=== PATIENT | female | born 1945 | race Caucasian/White ===

== ENCOUNTER 2019-10-22 04:02 | Inpatient (IN) | payer OTHER, SELFPAY ==
[2019-10-22] VITALS (32 sets, daily range): BP systolic 91–147; BP diastolic 48–107; PULSE 85–133; RESP 12–41; TEMP 36.2–37.1; O2SAT 92–100; BMI 30.6; BMI 32.0
--- NOTE | 2019-10-22 04:13 | EKG12_ITS ---
Test Reason : SOB Blood Pressure : / mmHG Vent. Rate : 129 BPM Atrial Rate : 129 BPM P-R Int : 136 ms QRS Dur : 124 ms QT Int : 318 ms P-R-T Axes : -09 -30 106 degrees QTc Int : 465 ms Sinus tachycardia Left axis deviation Left bundle branch block Abnormal ECG Confirmed by MARTIN BAÑUELOS, ELIS ([id number]), index editor MAGGIE HYATT ([id number]) on 10/24/2019 9:01:25 AM Referred By: VISHAL Confirmed By:ELIS SALAZAR MD
--- NOTE | 2019-10-22 04:17 | ED.VISSUMM ---
- ER Visit Summary Date of Service: 10/22/19 Chief Complaint: Shortness of breath History of Present Illness: The patient is a 74 F who presents with shortness of breath that has been getting worse since last night. Patient states her breathing became worse when she laid flat and try to sleep last night. Patient denies any cough. Patient denies any rhinorrhea or sore throat. Patient denies any fevers or chills. Patient denies any chest pain. Patient admits to some mild edema of her lower legs. Patient does admit to some pain radiating into her back. Patient denies any headaches or weakness. Physical Examination: Vital signs are stable except for tachycardia of 130 and a tachypnea of 40. Patient has a pulse ox of 97% on BiPAP. Patient is afebrile. Oral mucosa is pink and moist. Neck is supple. Trachea is midline. Heart was regular and tachycardic. Lung sounds were diminished bilaterally. There is adequate respiratory effort. Abdomen is soft. Bowel sounds are normal. There is no tenderness. Cranial nerves II through XII are intact. There are no focal motor or sensory deficits noted. Extremities are intact. There is 1+ edema of the lower extremities bilaterally. Test Results: EKG showed a sinus tachycardia with a rate of 129. There are no acute ST or T wave changes. There is a left bundle branch block pattern. There are no prior EKGs available for comparison. Chest x-ray shows evidence of congestive heart failure. This was interpreted by the radiologist and myself. CBC and metabolic profile were obtained and were essentially within normal limits. Lactate was slightly elevated 2.2. Emergency Department Course and Treatment: Patient was given a dose of Lasix here. Case was discussed with the hospitalist. She will be in to evaluate the patient. She will admit the patient to her service. Patient understands and is agreeable with the plan. All questions were answered. Disposition: Admit to hospital Impression: Acute exacerbation congestive heart failure This note was generated with PLAST[employer] dictation software. It may contain incorrect words, spelling, and punctuation that were not noted in review of the chart prior to signing ED Disposition - Plan for ED Patient: Disposition: Acute Care Hospital [facility] Diagnosis: Acute exacerbation of CHF (congestive heart failure)
[2019-10-22] MEDS: Furosemide 20 MG/2 ML VIAL IV (04:20)
--- NOTE | 2019-10-22 04:20 | RAD_ITS ---
STUDY: X-RAY CHEST REASON FOR EXAM: Female, 74 years old. DYSPNEA TECHNIQUE: Single AP portable view of the chest. COMPARISON: None. FINDINGS: Ill-defined groundglass opacities are seen in the perihilar regions and lung bases suggesting pulmonary edema. There is no demonstrated pleural abnormality. Normal size heart. Normal mediastinum and nu. There is prominence of the pulmonary hilar arteries and peripheral pulmonary arteries, consistent with congestive heart failure (CHF). Normal visualized aortic arch and descending thoracic aorta. Normal visualized thoracic spine. Normal visualized ribs, clavicles, and shoulders. There is no demonstrated abnormality of the visualized soft tissue structures of the upper abdomen. RAD/Chest 1 View (Portable) IMPRESSION: Congestive heart failure. Electronically Signed: Sal Jama, at 5:11 EST Tel , Service support ,
[2019-10-22 04:21] LABS: Absolute Lymphocyte Count 2.59 X10^3/uL (0.83-4.51); Absolute Neutrophil Count 7.4 X10^3/uL (2.0-7.7); Basophil# 0.06 X10^3/uL; Basophil% 0.6 % (0-1); Eosinophil# 0.18 X10^3/uL; Eosinophils% 1.7 % (0-5); Hematocrit 39.5 % (37-47); Hemoglobin 12.5 g/dL (12.0-15.0); Lymphocyte # 2.59 X10^3/ul (4.0); Lymphocyte % 23.8 % (19-41); Mean Corp Hgb Conc 31.6 g/dL (32-36); Mean Corpuscular Hgb 30.3 pg (27.0-32.0); Mean Corpuscular Volume 95.6 fL (81-99); Mean Platelet Vol. 9.5 fl (6.2-12.0); Monocyte# 0.61 X10^3/uL; Monocyte% 5.6 % (0-10); NRBC Flagged by Analyzer 0 % (0-5); Neutrophil % 67.8 % (47-70); Platelet Count 414 K/mm3 (150-450); RBC Distribution Width CV 13.4 % (11.6-14.6); RBC Distribution Width SD 47.1 fl (35.1-43.9); Red Blood Count 4.13 M/mm3 (4.2-5.4); White Blood Count 10.9 K/mm3 (4.4-11.0)
--- NOTE | 2019-10-22 04:34 | HP.PCM_ITS ---
Problem List (1) Acute respiratory failure with hypoxia Status: Acute (2) Acute exacerbation of CHF (congestive heart failure) Status: Acute Qualifiers: Heart failure type: unspecified Qualified Code(s): I50.9 - Heart failure, unspecified (3) HTN (hypertension) Status: Chronic Qualifiers: Hypertension type: essential hypertension Qualified Code(s): I10 - Essential (primary) hypertension History of Present Illness Date of Admission: 10/22/19 Chief Complaint: Dyspnea, orthopnea The patient is a 74 y/o Gnosticism F w/ PMHx: CHF Unclear type, HTN who presents to the [facility] ED on 10/22/19 with history of 48 hours of progressively worsening dyspnea, worse with exertion in addition to orthopnea as well as a 3 pound weight gain, suddenly worsening prior to ED arrival requiring initiation of BiPAP. In the ED following BiPAP administration patient improving with less d yspnea, declined intubation with a DNR CCA, no intubation status. Patient states she was previously following with a physician in the region for heart failure but [place] therefore she was planning on switching to Dr. Guzman and has upcoming appointment on 12/06/2019. She notes her most recent echocardiogram was approximately 1 year prior. Work-up in the ED included T 97.2, heart rate initially 133, BP initially 145/94, respiratory rate initially 41, 98% on BiPAP, CBC with WBC 10.9, hemoglobin 12.5, platelet 414 with no shift, pending ABG evaluation of patient, BMP with chloride 108, BUN 33, creatinine 0.91, glucose 176, troponin less than 0.015, EKG with sinus tachycardia with left bundle branch block with no comparison with no acute evidence of ischemia, chest x-ray with significant congestion, pulmonary edema. In the ED patient maintained on BiPAP with as noted subjective improvement with ministration of Lasix 20 mg IV x1 as well as Nitro-Bid 1 inch. Past Medical History Past Medical History (Chronic Problems): Chronic Problems HTN (hypertension) (Chronic) Allergies No Known Allergies Allergy (Verified 10/22/19 04:03) Home Medications: Ambulatory Orders Medication Instructions Recorded Ibuprofen 400 mg PO 4X/DAY PRN PRN 10/22/19 Labetalol [Trandate] 200 mg PO BID 10/22/19 Triamterene 37.5MG/Hctz 25MG 1 tab PO DAILY 10/22/19 [Maxzide 37.5 mg-25 mg Tablet] Surgical History: - - Cholecystectomy, appendectomy. 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 Paternal History Items: - - Patient notes a paternal family history of heart disease. Review of Systems Constitutional: Reports: Malaise, Weakness, Fatigue. Denies: Anorexia, Chills, Fever, Weight Change HEENT: Denies: Head Aches, Sinus Congestion, Sinus Drainage Cardiovascular: Reports: Edema, Orthopnea. Denies: Chest Pain, Heaviness, Light Headedness, Palpitations Respiratory: Reports: Shortness of Breath, Shortness of breath at rest, Shortness of breath upon exertion. Denies: Cough, Sputum production, Wheezing Gastrointestinal: Denies: Abdominal Pain, Nausea, Vomiting Genitourinary: Denies: Dysuria Musculoskeletal: Reports: Back Pain, Joint Pain. Denies: Joint Tenderness Skin: Denies: Rash, Wounds Neurological: Denies: Numbness, Tingling, Focal weakness Psychiatric: Denies: Anxiety, Depression, Homicidal Ideations, Suicidal Ideations Hematologic/ Lymphatic: Denies: Easy Bruising, Easy Bleeding VTE Information - Inpt Only VTE Present on Admission: No VTE Mechan Device Prophylaxis: SCD's VTE Pharm Prophylaxis ordered?: Yes Patient Problems: Active and Suspected Problems Acute respiratory failure with hypoxia (Acute) Acute exacerbation of CHF (congestive heart failure) (Acute) Subjective: Seated upright in ED bed, BiPAP in place, notes some improvement since initial ED presentation, still increased respiratory rate and some accessory muscle usage but lessening. Objective: Physical Examination: General: awake, alert, oriented x 3 and cooperative, seated upright in the ED bed, BiPAP in place, improving since initial ED presentation but still increased respiratory rate and some accessory muscle usage. Skin: normal color, turgor, no icterus, cyanosis. HEENT: AT/NC, EOMI, PERRLA, mildly dry MM, no carotid bruits, difficulty discerning JVD secondary to thickened neck, BiPAP in place. Lungs: Diffusely diminished breath sounds, greater bases, Rales bilateral bases, no obvious rhonchi or wheezing, BiPAP in place, improved since initial ED presentation but still increased respiratory rate and accessory muscle usage. Heart: Tachycardic with regular rhythm; no gallop, rub audible. Abdomen: soft, obese, NTTP, ND, normal BS, no HSM. Extremities: no cyanosis, clubbing, bilateral ankle edema but not pitting. Neurological: patient awake, alert, oriented x 3; cognitive function intact; pupils equally reactive to light and accomodation; cranial nerves II-XII grossly normal, moving all 4 extremities, no focal deficits, strength severely globally Emma secondary to acute presentation. Psychiatric: affect appears fatigued, mild distress although improved since initial ED presentation, no acute evidence of depressive or anxiety feelings. - Physical Exam Vitals/I&O's: Vital Signs Temp Pulse Resp BP Pulse Ox 97.2 F L 130 H 40 H 145/94 H 97 10/22/19 04:04 10/22/19 04:05 10/22/19 04:05 10/22/19 04:04 10/22/19 04:05 Oxygen Delivery Method Bi-pap Weight: 189 lb 13.088 oz Body Mass Index (BMI) 30.6 Laboratory Results 10/22/19 04:10: WBC 10.9, RBC 4.13 L, Hgb 12.5, Hct 39.5, MCV 95.6, MCH 30.3, MCHC 31.6 L, RDW Std Deviation 47.1 H, RDW Coeff of Tanya 13.4, Plt Count 414, MPV 9.5, Immature Gran % (Auto) 0.500, Neut % (Auto) 67.8, Lymph % (Auto) 23.8, [place] % (Auto) 5.6, Eos % (Auto) 1.7, Baso % (Auto) 0.6, Absolute Neuts (auto) 7.4, Absolute Lymphs (auto) 2.59, Nucleated RBC % 0 10/22/19 04:10: Sodium Pending, Potassium Pending, Chloride Pending, Carbon Dioxide Pending, Anion Gap Pending, BUN Pending, Creatinine Pending, Est GFR (MDRD) Af Amer Pending, Est GFR (MDRD) Non-Af Pending, BUN/Creatinine Ratio Pending, Glucose Pending, Calcium Pending, Troponin I Pending 10/22/19 04:10: Lactic Acid Pending Assessment/Plan All Active Problems Acute respiratory failure with hypoxia (Acute) Acute exacerbation of CHF (congestive heart failure) (Acute) The patient is a 74 y/o Gnosticism F w/ PMHx: CHF Unclear type, HTN who presents to the [facility] ED on 10/22/19 with history of 48 hours of progressively worsening dyspnea, worse with exertion in addition to orthopnea as well as a 3 pound weight gain, suddenly worsening prior to ED arrival requiring initiation of BiPAP. 1. Acute Hypoxic Respiratory Failure secondary to Acute Decompensated CHF, Unclear Type: Will admit to PCU, maintain on cardiac telemetry, obtain cardiac enzyme series, obtain serial EKGs, continue IV lasix diuresis, monitor I/Os, maintain on intake restriction, continue medical therapy w/ add of asa, low dose statin, low dose ACEI, continue home BB. Will obtain TSH and magnesium level. Most recent ECHO noted 1 year prior and unclear where, will repeat. Will continue nitrobid regimen. Cardiology consulted, pending. PRN morphine to decrease afterload, continue oxygen supplementation, if necessary will position w/ upright position with legs off bed to decrease preload. 2. Hypertension: Will continue home BB therapy, add low dose ACEI, continue IV lasix as noted, PRN IV hydralazine. 3. Hyperglycemia, suspected diabetes mellitus type II new onset: Admission glucose 176, will request hemoglobin A1c in interim we will maintain on ADA diet with insulin sliding scale. 4. DVT Prophylaxis: SCDs, lovenox. 5. CODE STATUS: Patient's family present, discussed CODE STATUS and preference for DNR-CCA, no intubation status. Patient would also defer any aggressive interventions. Code Visit Inpatient E&M: 98424 Init Hosp L3
[2019-10-22 04:43] LABS: Anion Gap 8 (5-15); BUN 33 mg/dL (7-18); BUN/Creat Ratio 36.3 RATIO (10-20); Calcium,Total 9.2 mg/dL (8.5-10.1); Chloride 108 mmol/L (98-107); Creatinine, Serum 0.91 mg/dL (0.55-1.02); EST Glomerular Filtration Rate 64 mL/min (>60); Est Glom Filt Rate - Afr Amer 78 mL/min (>60); Estimated Creatinine Clearance 50.77 ml/min; Glucose 176 mg/dL (74-106); Potassium 3.9 mmol/L (3.5-5.1); Sodium Level 141 mmol/L (136-145)
[2019-10-22] MEDS: Nitroglycerin Oint 1 INCH PACKET TRANSDERM. ×2 (04:44→09:50)
[2019-10-22 04:49] LABS: Lactic Acid 2.2 mmol/L (0.4-1.9)
[2019-10-22 04:56] LABS: Allen Test POS; Base Excess -4 mmol/L (-2 to +2); Bicarbonate 21.3 mmol/L (22-26); Blood Gas Specimen Type ART; EPAP 9; FI02 35; IPAP 18; PO2 114 mmHG (75-100); RR 12; SITE L Radial; SO2 98 % (95-99); Total Carbon Dioxide 22 mmol/L; pCO2 36.5 mmHg (35-45); pH 7.37 (7.35-7.45)
[2019-10-22 05:49] LABS: Thyroid Stim Hormone (TSH) 1.75 uIU/mL (0.358-3.74)
--- NOTE | 2019-10-22 05:55 | ECHOD_ITS ---
Reason For Study: CHF Procedure This was a 2D Doppler, Color Flow transthoracic echocardiogram. The exam was of adequate technical quality. Exam performed portable in ICU/CCU. Left Ventricle Mildly dilated left ventricle. Severe segmental systolic dysfunction (see wall motion). The estimated ejection fraction is 15 %. Anterio-Basal: Hypokinetic. Lateral-Basal: Hypokinetic. Posterior-Basal: Hypokinetic. Infero-Basal: Severely Hypokinetic. Basal inferoseptal: Akinetic. Mid- Anterior : Severely Hypokinetic. Mid-Lateral : Akinetic. Mid-Posterior: Akinetic. Mid-Inferior: Akinetic. Mid-inferoseptal : Akinetic. Mid-anteroseptal : Akinetic. Anterior [place] : Severely Hypokinetic. Inferior [place] : Akinetic. Lateral [place] : Akinetic. Septal [place] : Akinetic. Right Ventricle Normal RV size. Normal systolic function. Atria The left atrium is mildly enlarged. Normal right atrium. No doppler evidence for ASD. Mitral Valve There is moderate mitral annular calcification. Extension of the mitral annular calcification onto the mitral valve leaflets. Moderate (2+) mitral valve insufficiency. Tricuspid Valve Normal tricuspid valve. Trivial tricuspid valve insufficiency. Right ventricular systolic pressure estimated to be 26 mmHg. Aortic Valve Trisinus/trileaflet aortic valve. Mild focal aortic valve calcification. Pulmonic Valve The pulmonic valve is not well visualized. Great Vessels Normal sized aortic root. Pericardium/Pleural No pericardial effusion. MMode/2D Measurements & Calculations LVIDd: 5.9 cm IVSd: 0.99 cm Ao root diam: 3.4 cm LVIDs: 5.4 cm LVPWd: 1.0 cm RVDd: 3.4 cm FS: 9.8 % LAV(MOD-bp): 70.5 ml LVAd ap4: 38.9 cm2 SV(MOD-sp4): 24.5 ml LAV(MOD-bp) Indexed: 36.1 ml/m2 EDV(MOD-sp4): 154.1 ml LAV(MOD-sp2): 59.8 ml EDV(sp4-el): 161.1 ml LAV(MOD-sp4): 76.2 ml LVAs ap4: 34.8 cm2 ESV(MOD-sp4): 129.5 ml ESV(sp4-el): 132.9 ml EF(MOD-sp4): 15.9 % EF(sp4-el): 17.5 % SV(sp4-el): 28.2 ml LA A4 area: 23.2 cm2 LA dimension(2D): 4.5 cm RA A4 area: 15.1 cm2 Time Measurements MV dec time: 0.17 sec Doppler Measurements & Calculations MV E max delonte: 119.8 cm/sec Lat Peak E' [place]: 7.6 cm/sec Med Peak E' [place]: 3.2 cm/sec MV A max delonte: 67.5 cm/sec E/E' lat: 15.9 E/E' med: 37.1 MV E/A: 1.8 Ao V2 max: 115.8 cm/sec LV V1 max: 81.7 cm/sec TR max delonte: 236.9 cm/sec Ao max P.4 mmHg LV V1 max P.7 mmHg TR max P.5 mmHg Interpretation Summary Mildly dilated left ventricle. Severe segmental systolic dysfunction (see wall motion). The estimated ejection fraction is 15 %. The left atrium is mildly enlarged. There is moderate mitral annular calcification. Extension of the mitral annular calcification onto the mitral valve leaflets. Moderate (2+) mitral valve insufficiency. Trivial tricuspid valve insufficiency. Mild focal aortic valve calcification. Right ventricular systolic pressure estimated to be 26 mmHg. Transmitral diastolic flow velocities suggest diastolic dysfunction (pseudonormal pattern). Ordering Physician: Sumi Stock Referring Physician: EMILE LOPEZ Performed By: Josie Worrell, JOSUE, RVT
[2019-10-22] MEDS: Nitroglycerin Oint 1 INCH PACKET 0.5 INCH TRANSDERM. (06:59)
[2019-10-22 07:31] LABS: Bedside Glucose 106 mg/dL (70-110)
[2019-10-22 07:47] LABS: Hemoglobin A1c 5.6 % (4.2-6.3)
[2019-10-22 08:18] LABS: Reflex Lactate? Y
--- NOTE | 2019-10-22 08:57 | CON.PCM_ITS ---
Problem List (1) Acute exacerbation of CHF (congestive heart failure) Status: Acute Qualifiers: Heart failure type: unspecified Qualified Code(s): I50.9 - Heart failure, unspecified (2) Abnormal electrocardiogram Status: Acute (3) HTN (hypertension) Status: Chronic Qualifiers: Hypertension type: essential hypertension Qualified Code(s): I10 - Essential (primary) hypertension Reason for Consult Date of Consultation: 10/22/19 History of Present Illness: The patient is a 74 year old male with a past cardiovascular history which is included congestive heart failure, an abnormal ECG, and hypertension who is referred for evaluation of acute on chronic CHF (unknown at this time heart failure with preserved ejection fraction versus heart failure with reduced ejection fraction). She states she is previously been evaluated by cardiology in [place], [place] and is undergone both noninvasive and invasive cardiovascular testing in the past. She recalls having electrocardiograms and echocardiograms performed. She recalls having a cardiac catheterization performed at [facility] in [place], [place] approximately 8 to 9 years ago. To the best of her recollection she had no CAD reported and required no form of revascularization therapy. She states she was treated medically. She has not been evaluated by cardiology in quite some time. She notes recently she has had progressive shortness of breath and dyspnea which became much more prominent recently that led to her hospitalization. She states she was having more shortness of breath and dyspnea not only with activity but also at rest and at night. She denied any lower extremity edema. She had no associated chest discomfort other than the sensation of her dyspnea. She does not recall palpitations, near-syncope, or syncope. She presented to the [facility] emergency department for further evaluation. There she was diagnosed with acute on chronic CHF with concerns of respiratory failure requiring placement in the ICU and a CPAP/BiPAP type device. She had previously stated that she wanted to be a DNR patient/no intubation patient. She has been treated medically with IV diuretics. Her initial troponin I level was negative. Her ECG demonstrated sinus rhythm with left axis deviation with a left bundle branch block pattern. Her previous cardiovascular records are unavailable for review. [] Past Medical History Allergies/Adverse Reactions: Allergies No Known Allergies Allergy (Verified 10/22/19 04:03) Home Medications: Ambulatory Orders Medication Instructions Recorded Ibuprofen 400 mg PO 4X/DAY PRN PRN 10/22/19 Labetalol [Trandate] 100 mg PO BID 10/22/19 Triamterene 37.5MG/Hctz 25MG 1 tab PO DAILY 10/22/19 [Maxzide 37.5 mg-25 mg Tablet] Past Medical History (Chronic Problems): Chronic Problems HTN (hypertension) (Chronic) Surgical History: - - Cholecystectomy, appendectomy. 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 Paternal History Items: - - Patient notes a paternal family history of heart disease. Lives: Spouse/ Significant Other Smoking Status: Never smoker Tobacco Use: Non-smoker Alcohol: None Drugs: None Review of Systems - Review of Systems General: Denies: Fever, Night Sweats, Fatigue Cardiovascular: Reports: Shortness of Breath, Shortness of Breath at Rest, Shortness of Breath with Exertion. Denies: Chest Discomfort, Orthopnea, PND, Peripheral Edema, Palpitations, Lightheadedness, Dizziness, Near Syncope, Syncope Respiratory: Reports: Shortness of Breath. Denies: Cough, Sputum Production, Hemoptysis Gastrointestinal: Denies: Hematemesis, Hematochezia, Melena Genitourinary: Denies: Dysuria, Hematuria Skin: Denies: Rash Subjectve: Is a 74-year-old white female who appears to be resting reasonably comfortably at the moment in no acute distress. Objective: Vital Signs Temp Pulse Resp BP Pulse Ox 98.7 F 109 H 29 H 138/98 H 100 10/22/19 07:27 10/22/19 07:27 10/22/19 07:27 10/22/19 07:27 10/22/19 05:31 Oxygen Delivery Method Bi-pap Weight: 180 lb 15.992 oz Body Mass Index (BMI) 32.0 Intake and Output for Last 24 Hours 10/20/19 10/21/19 10/22/19 23:59 23:59 23:59 Intake Total 0 / 0 Output Total 500 / 500 Balance -500 / -500 General: Awake, Alert, Oriented x 3, Cooperative, No Acute Distress HEENT: Atraumatic, Normocephalic, PERRL, EOMI, Sclera Non Icteric Oral: Moist Mucosa Neck: Supple, Good ROM Lungs: Diminished Shay Bases Cardiovascular: Regular Rhythm, Normal S1, Normal S2 Abdomen: Bowel Sounds Present, Soft, Non Tender Extremities: No edema Neurological: No Focal Motor or Sensory Deficit Psych/Mental Status: Appropriate 10/22/19 04:10: WBC 10.9, RBC 4.13 L, Hgb 12.5, Hct 39.5, MCV 95.6, MCH 30.3, MCHC 31.6 L, Plt Count 414, MPV 9.5, Immature Gran % (Auto) 0.500, Neut % (Auto) 67.8, Lymph % (Auto) 23.8, [place] % (Auto) 5.6, Eos % (Auto) 1.7, Baso % (Auto) 0.6, Absolute Neuts (auto) 7.4, Nucleated RBC % 0 10/22/19 04:10: Sodium 141, Potassium 3.9, Chloride 108 H, Carbon Dioxide 25.0, Anion Gap 8, BUN 33 H, Creatinine 0.91, Est GFR (MDRD) Af Amer 78, Est GFR (MDRD) Non-Af 64, BUN/Creatinine Ratio 36.3 H, Glucose 176 H, Calcium 9.2, Troponin I < 0.015 10/22/19 04:10: Lactic Acid 2.2 H* 10/22/19 04:10: Magnesium 2.0 10/22/19 04:10: Hemoglobin A1c 5.6 10/22/19 04:50: pH 7.37, Bicarbonate Actual 21.3 L, POC Total CO2 22, Base Excess -4 L, O2 Saturation 98, ABG pCO2 36.5, ABG pO2 114 H, [place] Test POS 10/22/19 07:00: Troponin I 0.021 Rhythm: Sinus rhythm; PVCs EKG: Sinus rhythm; left axis deviation; left bundle branch block pattern CXR: Preliminary evaluation: Increased pulmonary vascularity: Please see official report Assessment/Plan 1. Acute on chronic CHF The patient appears to have findings compatible with acute on chronic CHF. It is unclear at this time whether this is CHF with preserved ejection fraction versus CHF with reduced ejection fraction. Her previous cardiovascular records are unavailable for review. At the present time she remains in the ICU due to her respiratory related requirements of CPAP/BiPAP, etc. She will continue to be monitored. She will continue to be evaluated with a transthoracic echocardiogram. An attempt was made to retrieve her previous cardiovascular records for continuity of care. In the interim she will continue medical therapy which does include a combination of nitrates, beta-blockers, diuretics, afterload reducing agents, etc. 2. Abnormal ECG She does have an abnormal ECG. It demonstrates findings compatible with an underlying left bundle branch block pattern. 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 Again at the present time she will continue to be monitored, continue medical therapy, and continue her noninvasive evaluation. 3. Hypertension Her blood pressure remains somewhat elevated. Her medications will be adjusted in an attempt to try and bring her blood pressure under better control. Comment: The patient's case has been previously discussed with the patient. Thank you for allowing me to participate in the care of your patient. Please don't hesitate to call if any issues arise.
[2019-10-22 09:15] LABS: Lactic Acid 1.1 mmol/L (0.4-1.9)
--- NOTE | 2019-10-22 09:31 | PCM.CON.CC ---
Problem List (1) Acute respiratory failure with hypoxia Status: Acute (2) Acute exacerbation of CHF (congestive heart failure) Status: Acute Qualifiers: Heart failure type: unspecified Qualified Code(s): I50.9 - Heart failure, unspecified (3) HTN (hypertension) Status: Chronic Qualifiers: Hypertension type: essential hypertension Qualified Code(s): I10 - Essential (primary) hypertension (4) Abnormal electrocardiogram Status: Acute Reason for Consult Date of Consultation: 10/22/19 Reason for Consultation: Respiratory failure History of Present Illness: The patient is a 74 year old F, with past medical history listed below, who presented to [facility] on 10/22/2019 secondary to shortness of breath over the last 24 hours. Patient had difficulty lying flat and with sleep on the night previous. Patient did not report any prodromal symptoms such as cough, rhinorrhea or sore throat. No fevers or chills of been reported. Patient had reported some mild lower extremity edema. Patient does suffer from chronic back pain, but denied any headaches or weakness. In the ER, patient was tachycardic at 130 bpm and tachypneic at 40 breaths/min. Patient was on BiPAP with a saturation of 97%. Patient was noted to have lower extremity edema. Laboratory work-up showed lactate slightly elevated at 2.2 and a chest x-ray showing CHF. Patient was given a dose of Lasix and admitted to the intensive care unit on BiPAP therapy. Over the course of her ICU stay, patient has improved subjectively. Patient remains on BiPAP therapy, but does not work nearly as hard to breathe. Patient has had good response to Lasix therapy. Patient is starting to report a headache and she is attributing this to the BiPAP, but patient is also on nitroglycerin. Patient's family was at the bedside for rounds and questions were answered. Review of systems otherwise negative from a constitutional, HEENT, respiratory, cardiovascular, GI, genitourinary, musculoskeletal, skin, neurologic, psychiatric and hematologic system unless stated above. Past Medical History Past Medical History (Chronic Problems): Chronic Problems HTN (hypertension) (Chronic) Allergies No Known Allergies Allergy (Verified 10/22/19 04:03) Home Medications: Ambulatory Orders Medication Instructions Recorded Ibuprofen 400 mg PO 4X/DAY PRN PRN 10/22/19 Labetalol [Trandate] 100 mg PO BID 10/22/19 Triamterene 37.5MG/Hctz 25MG 1 tab PO DAILY 10/22/19 [Maxzide 37.5 mg-25 mg Tablet] Surgical History: - - Cholecystectomy, appendectomy. 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 Paternal History Items: - - Patient notes a paternal family history of heart disease. Review of Systems Comment: See HPI Patient Problems: Active and Suspected Problems Acute respiratory failure with hypoxia (Acute) Acute exacerbation of CHF (congestive heart failure) (Acute) Abnormal electrocardiogram (Acute) Objective: Chest x-ray was personally reviewed and does show small bilateral pleural effusions with cephalization. - Physical Exam Vitals/I&O's: Vital Signs Temp Pulse Resp BP Pulse Ox 37.1 C 109 H 29 H 138/98 H 100 10/22/19 07:27 10/22/19 07:27 10/22/19 07:27 10/22/19 07:27 10/22/19 05:31 Oxygen Delivery Method Bi-pap Weight: 82.1 kg Body Mass Index (BMI) 32.0 Intake and Output for Last 24 Hours 10/20/19 10/21/19 10/22/19 23:59 23:59 23:59 Intake Total 0 / 0 Output Total 500 / 500 Balance -500 / -500 General: Alert, Oriented x3, Cooperative, No apparent distress - On BiPAP therapy, - - Obese. No conversational dyspnea while on BiPAP HEENT: Atraumatic, PERRLA, EOMI, Normocephalic, - - No scleral icterus or injection noted Oral: No Gingival or Mucosal Lesions/ Ulcerations, Dry Mucosa Neck: Supple, No Nodes, Trachea Midline, JVD, Right Lungs: No rhonchi, No wheeze, Diminished, Rales, - - Symmetric expansion. No dullness to percussion. Cardiovascular: Regular Rhythm, Normal S1, Normal S2, No murmurs, No rub noted, No Gallop, Tachycardic Abdomen: Bowel Sounds Present, Soft, Non Tender, Non-Distended, Obese Extremities: No clubbing, No cyanosis, Capillary Refill Less than 3 Seconds, Edema - 1+ lower extremity Skin: No rashes, No breakdown Musculoskeletal: No Tenderness to Palpation of Joints or Extremities Lymphatic: No Cervical, Supraclavicular, or Inguinal Adenopathy Neurological: Cranial nerves II-XII grossly intact, Neuro grossly intact, Motor Exam 5/5 strength throughout Psych/Mental Status: Alert and oriented to time, place, person, mood and affect Laboratory Results 10/22/19 04:10: WBC 10.9, RBC 4.13 L, Hgb 12.5, Hct 39.5, MCV 95.6, MCH 30.3, MCHC 31.6 L, RDW Std Deviation 47.1 H, RDW Coeff of Tanya 13.4, Plt Count 414, MPV 9.5, Immature Gran % (Auto) 0.500, Neut % (Auto) 67.8, Lymph % (Auto) 23.8, [place] % (Auto) 5.6, Eos % (Auto) 1.7, Baso % (Auto) 0.6, Absolute Neuts (auto) 7.4, Absolute Lymphs (auto) 2.59, Nucleated RBC % 0 10/22/19 04:10: Sodium 141, Potassium 3.9, Chloride 108 H, Carbon Dioxide 25.0, Anion Gap 8, BUN 33 H, Creatinine 0.91, Estim Creat Clear Calc 50.77, Est GFR (MDRD) Af Amer 78, Est GFR (MDRD) Non-Af 64, BUN/Creatinine Ratio 36.3 H, Glucose 176 H, Calcium 9.2, Troponin I < 0.015 10/22/19 04:10: Lactic Acid 2.2 H* 10/22/19 04:10: Magnesium 2.0, TSH 1.75 10/22/19 04:10: Hemoglobin A1c 5.6 10/22/19 04:50: Specimen Type ART, Sample Site L Radial, pH 7.37, Bicarbonate Actual 21.3 L, POC Total CO2 22, Base Excess -4 L, O2 Saturation 98, O2 % 35, ABG pCO2 36.5, ABG pO2 114 H, [place] Test POS, Respiration Rate 12, O2 Delivery Device Bi / C PAP, EPAP 9, IPAP 18, Blood Gas Notified Whom ED 10/22/19 07:00: Troponin I 0.021 10/22/19 07:24: POC Glucose 106 10/22/19 08:45: Lactic Acid 1.1 Current Medications Acetaminophen (Tylenol) 650 mg PO Q6H PRN PRN PRN Reason: Pain Score 1-10/Temp > 100.7 F Al Hydroxide/Mg Hydroxide (Mylanta Ii) 30 ml PO Q6H PRN PRN PRN Reason: Gastric Burning Albuterol Sulfate (Ventolin Aerosols) 2.5 mg INHALATION Q2H PRN PRN PRN Reason: SOB/Wheezing Aspirin (Aspirin, Baby) 81 mg PO DAILY@0800 [facility] Enoxaparin Sodium (Lovenox) 40 mg SC DAILY EMILIE Furosemide (Lasix) 40 mg IV BID@1000,1800 [facility] Glucagon () 1 mg IM .X1 PRN PRN Reason: Hypoglycemia Guaifenesin (Robitussin) 10 ml PO Q4H PRN PRN PRN Reason: COUGH Dextrose (Dextrose 10%-Water) 250 mls @ 999 mls/hr IV .Q16M PRN; Protocol PRN Reason: HYPOGLYCEMIA Insulin Human Lispro (Humalog Kwikpen (Bkc)) 0 unit SC ACHS [facility]; Protocol Last Admin: 10/22/19 07:26 Dose: Not Given Documented by: Labetalol HCl (Trandate) 200 mg PO BID [facility] Lisinopril (Zestril) 10 mg PO BID [facility] Magnesium Hydroxide (Milk Of Magnesia) 30 ml PO DAILY PRN PRN PRN Reason: Constipation Melatonin (Melatonin) 3 mg PO QHS PRN PRN PRN Reason: INSOMNIA Morphine Sulfate () 2 mg IV Q3H PRN PRN PRN Reason: Pain Score 6-10/10 Nitroglycerin (Nitrobid) 1 inch TRANSDERM. Q6H [facility] Ondansetron HCl (Zofran) 4 mg IV Q8H PRN PRN PRN Reason: NAUSEA/VOMITING Prochlorperazine Edisylate (Compazine Iv) 5 mg IV Q4H PRN PRN PRN Reason: Breakthrough Nausea/Vomiting Psyllium Hydrophilic Mucilloid (Metamucil) 1 packet PO DAILY PRN PRN PRN Reason: Constipation Senna/Docusate Sodium (Senokot-S, Ana-Colace) 2 tablet PO BID PRN PRN PRN Reason: Constipation Sodium Chloride () 10 - 40 ml IV UD PRN PRN Reason: SALINE FLUSH Throat Lozenges (Cepacol Sore Throat Lozenge) 1 lozenge MUCOUS MEM Q2H PRN PRN PRN Reason: SORE THROAT Clinical Impression(s) from Imaging Studies Chest X-Ray 10/22/19 04:20 IMPRESSION: Congestive heart failure. Electronically Signed: Sal Jama, at 5:11 EST Tel , Service support , Assessment/Plan Active and Suspected Problems Acute respiratory failure with hypoxia (Acute) Acute exacerbation of CHF (congestive heart failure) (Acute) Abnormal electrocardiogram (Acute) RECOMMENDATIONS: 1. Continue Lasix therapy 2. BiPAP breaks as tolerated. Continue BiPAP with sleep 3. Appreciate cardiology input 4. Walking oximetry prior to discharge 5. Initiate p.o. diet if patient is able to tolerate 1 hour off of BiPAP 6. Possible transfer from the intensive care unit later today or tomorrow IMPRESSIONS: 1. Acute hypoxic respiratory failure secondary to acute CHF Exact type of CHF is unclear at this time. Patient does have radiologic findings and is responding to Lasix therapy at this time. Echocardiogram has been ordered to determine diastolic and systolic function. Consider discontinuation of nitroglycerin given side effects. Patient should continue on BiPAP therapy with sleep, but will attempt BiPAP breaks during the day. Patient reportedly has not tolerated statins in the past. 2. Hypertension Patient with probable comorbid congestive heart failure. Await classification. Okay to continue with beta-leah and ESTEPHANIA inhibitor from my perspective. Would discontinue nitroglycerin for blood pressure space if necessary. 3. Hyperglycemia/possible new onset diabetes mellitus Complicates care, management, recovery and prognosis. Patient's admission glucose was elevated at 176. Hemoglobin A1c is currently pending. Reasonable to continue with sliding scale. Dietary teaching. Patient was confirmed a DNR Comfort Care arrest without intubation. Medical record has been updated. TIME: 33 minutes critical care time spent addressing patient's acute hypoxic respiratory failure, hypertension, hyperglycemia, review of all data and collaboration with care team (6 AM to 7 AM) Code Visit [id number]: [id number] Critical care first hour
[2019-10-22] MEDS: Labetalol 200 MG Tablet PO (09:47)
[2019-10-22] MEDS: Enoxaparin 40 MG/0.4 ML Syringe SC (09:47)
[2019-10-22] MEDS: Aspirin 81 MG TAB.CHEW PO (09:48)
--- NOTE | 2019-10-22 09:57 | CASEMGMT ---
RN CM Assessment Note Presentation: CHF Intro role of CM and purpose of RN CM assessment to patient, her and daughter. Demographics, PCP and Pharmacy verified. Pt on Bipap prior to assessment, was changed to NC. Pt is awake, alert and able to participate. States she is feeling better since having been on Lasix. PCP: Toni Lafleur Preferred Pharmacy: [facility] Retail pharmacy [place] [address] Insurance: [employer] Prescription Benefit: no LNOK: , Bon Bhatia Living Arrangements: Lives in one story home, 2 steps into home. Has basement but states she does not go down to basement. Independent in ADL's, no care needs identified. Transportation: Hired [employer]; would like [facility] Transport home. DME: none. HHC/SNF: none Patient DC goals: Home on discharge. DC PLAN: Home on discharge. Pt denies any needs. RN CM let pt know to contact CM if concerns re: dc arise. Xavier ARREOLAN RN ACM
--- NOTE | 2019-10-22 10:14 | CASEMGMT ---
Social Work: ICU rounds attended. Patient's and daughter also present. Will follow to assist if needed with D/C planning if needed. Nanette Magana.JOSE ANTONIO
[2019-10-22] MEDS: Lisinopril 10 MG Tablet PO (11:12)
[2019-10-22] MEDS: Furosemide 40 MG/4 ML Vial IV ×2 (11:12→17:27)
[2019-10-22 11:56] LABS: Bedside Glucose 105 mg/dL (70-110)
[2019-10-22 17:40] LABS: Bedside Glucose 95 mg/dL (70-110)
--- NOTE | 2019-10-22 18:22 | PCM.HOSP.N ---
Hospitalist Note Patient was seen and examined today in the ICU, she had an echocardiogram performed today which showed a severely reduced ejection fraction, I talked to cardiology about this and cardiology feels that the patient wants to proceed with aggressive medical care she should consent to a cardiac catheterization. I had a discussion with the patient this afternoon-her and daughter were in the room and I went over the patient's medical problems with them, I asked the patient whether she would consent to a cardiac catheterization-she agreed to this, she did not agree to proceeding with coronary artery bypass if it was needed-she stated her had coronary artery bypass and did poorly afterwards. I tried to assure her that every patient was different but she was not able to commit to being transferred for coronary bypass if intervention here was not able to be accomplished. I relayed this to Dr. Guzman, the patient will be n.p.o. after 1 AM tomorrow morning and she will be reevaluated in the morning by cardiology. Patient seems comfortable on 2 L nasal cannula and was satting at 100% earlier this afternoon when I talked to her.
[2019-10-22] MEDS: Labetalol 100 MG Tablet PO (21:25)
[2019-10-22] MEDS: 0.9% Normal Saline 1,000 ML 15 ML IV (21:26)
[2019-10-22 21:40] LABS: Bedside Glucose 116 mg/dL (70-110)
[2019-10-23] VITALS (25 sets, daily range): BP systolic 83–117; BP diastolic 36–83; PULSE 79–112; RESP 14–26; TEMP 36.5–36.9; O2SAT 93–99
[2019-10-23 03:43] LABS: Absolute Neutrophil Count 5.1 X10^3/uL (2.0-7.7); Basophil# 0.04 X10^3/uL; Basophil% 0.5 % (0-1); Eosinophil# 0.09 X10^3/uL; Eosinophils% 1.2 % (0-5); Hemoglobin 12.7 g/dL (12.0-15.0); Lymphocyte % 23.1 % (19-41); Mean Corp Hgb Conc 32.6 g/dL (32-36); Mean Corpuscular Hgb 30.3 pg (27.0-32.0); Mean Corpuscular Volume 93.1 fL (81-99); Mean Platelet Vol. 9.7 fl (6.2-12.0); Monocyte# 0.71 X10^3/uL; Monocyte% 9.1 % (0-10); NRBC Flagged by Analyzer 0 % (0-5); Neutrophil % 65.6 % (47-70); Platelet Count 367 K/mm3 (150-450); RBC Distribution Width CV 13.5 % (11.6-14.6); RBC Distribution Width SD 45.7 fl (35.1-43.9); Red Blood Count 4.19 M/mm3 (4.2-5.4); White Blood Count 7.8 K/mm3 (4.4-11.0)
--- NOTE | 2019-10-23 03:49 | CPS ---
checked with RN about pt wearing bipap. pt was already sleeping comfortably
[2019-10-23 03:57] LABS: Anion Gap 8 (5-15); BUN 42 mg/dL (7-18); BUN/Creat Ratio 37.8 RATIO (10-20); Calcium,Total 9.3 mg/dL (8.5-10.1); Chloride 105 mmol/L (98-107); Creatinine, Serum 1.11 mg/dL (0.55-1.02); EST Glomerular Filtration Rate 51 mL/min (>60); Est Glom Filt Rate - Afr Amer 62 mL/min (>60); Estimated Creatinine Clearance 36.78 ml/min; Glucose 114 mg/dL (74-106); Potassium 3.5 mmol/L (3.5-5.1); Sodium Level 141 mmol/L (136-145)
--- NOTE | 2019-10-23 07:05 | PCM.PN.INT ---
Subjective: Patient did well overnight. Patient did have a couple blood pressure medications held or decreased secondary to marginal blood pressures. Patient did have good diuresis and feels from a respiratory standpoint that she is back to baseline. Patient did have some leg cramping overnight that she attributed to her Lasix medications. These have resolved. Patient is to have a heart catheterization later today. General: Alert, Oriented x3, Cooperative, No apparent distress, - - Appears stated age. Obese. No conversational dyspnea. HEENT: Atraumatic, PERRLA, EOMI, Normocephalic, - - No scleral icterus or injection noted Oral: No Gingival or Mucosal Lesions/ Ulcerations, Dry Mucosa Neck: Supple, No JVD, No Nodes, Trachea Midline Lungs: No rhonchi, No wheeze, No rales, Diminished, - - Symmetric expansion. No dullness to percussion. Cardiovascular: Regular rate, Regular Rhythm, Normal S1, Normal S2, No murmurs, No rub noted, No Gallop Abdomen: Bowel Sounds Present, Soft, Non Tender, Non-Distended Extremities: No clubbing, No cyanosis, No edema, Capillary Refill Less than 3 Seconds Skin: No rashes, No breakdown Musculoskeletal: No Tenderness to Palpation of Joints or Extremities Lymphatic: No Cervical, Supraclavicular, or Inguinal Adenopathy Neurological: Cranial nerves II-XII grossly intact, Neuro grossly intact, Motor Exam 5/5 strength throughout Psych/Mental Status: Alert and oriented to time, place, person, mood and affect Vital Signs Temp Pulse Resp BP Pulse Ox 36.6 C 93 19 H 106/52 L 97 10/23/19 04:00 10/23/19 06:00 10/23/19 06:00 10/23/19 06:00 10/23/19 06:00 Oxygen Flow Rate (L/min) 2 Oxygen Delivery Method Room Air Weight: 80.3 kg Body Mass Index (BMI) 32.0 Intake and Output for Last 24 Hours 10/21/19 10/22/19 10/23/19 23:59 23:59 23:59 Intake Total 550 / 550 0 / 0 Output Total 2900 / 2900 350 / 350 Balance -2350 / -2350 -350 / -350 Labs (Last 48 Hours) 10/22/19 10/22/19 10/22/19 04:10 04:10 04:10 WBC 10.9 RBC 4.13 L Hgb 12.5 Hct 39.5 MCV 95.6 MCH 30.3 MCHC 31.6 L RDW Std Deviation 47.1 H RDW Coeff of Tanya 13.4 Plt Count 414 MPV 9.5 Immature Gran % (Auto) 0.500 Neut % (Auto) 67.8 Lymph % (Auto) 23.8 [place] % (Auto) 5.6 Eos % (Auto) 1.7 Baso % (Auto) 0.6 Absolute Neuts (auto) 7.4 Absolute Lymphs (auto) 2.59 Nucleated RBC % 0 Specimen Type Sample Site pH Bicarbonate Actual POC Total CO2 Base Excess O2 Saturation O2 % ABG pCO2 ABG pO2 Alvarado Test Respiration Rate O2 Delivery Device EPAP IPAP Blood Gas Notified Whom Sodium 141 Potassium 3.9 Chloride 108 H Carbon Dioxide 25.0 Anion Gap 8 BUN 33 H Creatinine 0.91 Estim Creat Clear Calc 50.77 Est GFR (MDRD) Af Amer 78 Est GFR (MDRD) Non-Af 64 BUN/Creatinine Ratio 36.3 H Glucose 176 H Hemoglobin A1c Lactic Acid 2.2 H* Calcium 9.2 Magnesium Troponin I < 0.015 TSH POC Glucose 10/22/19 10/22/19 10/22/19 04:10 04:10 04:50 WBC RBC Hgb Hct MCV MCH MCHC RDW Std Deviation RDW Coeff of Tanya Plt Count MPV Immature Gran % (Auto) Neut % (Auto) Lymph % (Auto) [place] % (Auto) Eos % (Auto) Baso % (Auto) Absolute Neuts (auto) Absolute Lymphs (auto) Nucleated RBC % Specimen Type ART Sample Site L Radial pH 7.37 Bicarbonate Actual 21.3 L POC Total CO2 22 Base Excess -4 L O2 Saturation 98 O2 % 35 ABG pCO2 36.5 ABG pO2 114 H Alvarado Test POS Respiration Rate 12 O2 Delivery Device Bi / C PAP EPAP 9 IPAP 18 Blood Gas Notified Whom ED MD Sodium Potassium Chloride Carbon Dioxide Anion Gap BUN Creatinine Estim Creat Clear Calc Est GFR (MDRD) Af Amer Est GFR (MDRD) Non-Af BUN/Creatinine Ratio Glucose Hemoglobin A1c 5.6 Lactic Acid Calcium Magnesium 2.0 Troponin I TSH 1.75 POC Glucose 10/22/19 10/22/19 10/22/19 07:00 07:24 08:45 WBC RBC Hgb Hct MCV MCH MCHC RDW Std Deviation RDW Coeff of Tanya Plt Count MPV Immature Gran % (Auto) Neut % (Auto) Lymph % (Auto) [place] % (Auto) Eos % (Auto) Baso % (Auto) Absolute Neuts (auto) Absolute Lymphs (auto) Nucleated RBC % Specimen Type Sample Site pH Bicarbonate Actual POC Total CO2 Base Excess O2 Saturation O2 % ABG pCO2 ABG pO2 Al[place]ado Test Respiration Rate O2 Delivery Device EPAP IPAP Blood Gas Notified Whom Sodium Potassium Chloride Carbon Dioxide Anion Gap BUN Creatinine Estim Creat Clear Calc Est GFR (MDRD) Af Amer Est GFR (MDRD) Non-Af BUN/Creatinine Ratio Glucose Hemoglobin A1c Lactic Acid 1.1 Calcium Magnesium Troponin I 0.021 TSH POC Glucose 106 10/22/19 10/22/19 10/22/19 10:10 11:53 17:25 WBC RBC Hgb Hct MCV MCH MCHC RDW Std Deviation RDW Coeff of Tanya Plt Count MPV Immature Gran % (Auto) Neut % (Auto) Lymph % (Auto) [place] % (Auto) Eos % (Auto) Baso % (Auto) Absolute Neuts (auto) Absolute Lymphs (auto) Nucleated RBC % Specimen Type Sample Site pH Bicarbonate Actual POC Total CO2 Base Excess O2 Saturation O2 % ABG pCO2 ABG pO2 [place] Test Respiration Rate O2 Delivery Device EPAP IPAP Blood Gas Notified Whom Sodium Potassium Chloride Carbon Dioxide Anion Gap BUN Creatinine Estim Creat Clear Calc Est GFR (MDRD) Af Amer Est GFR (MDRD) Non-Af BUN/Creatinine Ratio Glucose Hemoglobin A1c Lactic Acid Calcium Magnesium Troponin I 0.042 TSH POC Glucose 105 95 10/22/19 10/23/19 10/23/19 21:24 03:32 03:32 WBC 7.8 RBC 4.19 L Hgb 12.7 Hct 39.0 MCV 93.1 MCH 30.3 MCHC 32.6 RDW Std Deviation 45.7 H RDW Coeff of Tanya 13.5 Plt Count 367 MPV 9.7 Immature Gran % (Auto) 0.500 Neut % (Auto) 65.6 Lymph % (Auto) 23.1 [place] % (Auto) 9.1 Eos % (Auto) 1.2 Baso % (Auto) 0.5 Absolute Neuts (auto) 5.1 Absolute Lymphs (auto) 1.80 Nucleated RBC % 0 Specimen Type Sample Site pH Bicarbonate Actual POC Total CO2 Base Excess O2 Saturation O2 % ABG pCO2 ABG pO2 [place] Test Respiration Rate O2 Delivery Device EPAP IPAP Blood Gas Notified Whom Sodium 141 Potassium 3.5 Chloride 105 Carbon Dioxide 28.0 Anion Gap 8 BUN 42 H Creatinine 1.11 H Estim Creat Clear Calc 36.78 Est GFR (MDRD) Af Amer 62 Est GFR (MDRD) Non-Af 51 L BUN/Creatinine Ratio 37.8 H Glucose 114 H Hemoglobin A1c Lactic Acid Calcium 9.3 Magnesium Troponin I TSH POC Glucose 116 H Medical Necessity - Tobacco Use Smoking Status: Never smoker Tobacco Use: Non-smoker Assessment/Plan All Active Problems Acute respiratory failure with hypoxia (Acute) Acute exacerbation of CHF (congestive heart failure) (Acute) Abnormal electrocardiogram (Acute) RECOMMENDATIONS: 1. Consider holding Lasix therapy for 24 hours given heart catheterization 2. Okay to discontinue BiPAP therapy 3. Appreciate cardiology input. Await results of cardiac catheterization 4. Walking oximetry prior to discharge 5. Possible transfer from the intensive care unit later today or tomorrow pending results of heart catheterization 6. Hemodynamically stable on room air. Will sign off from a critical care/pulmonary perspective IMPRESSIONS: 1. Acute hypoxic respiratory failure secondary to acute systolic CHF Echocardiogram showing significant segmental systolic dysfunction with an EF of 15%. Patient has responded well to diuretic therapy. Consider discontinuation of diuretics for 24 hours given contrast requirements for heart catheterization. Would defer to cardiology on medications for hypertension. Patient currently hemodynamically stable on room air. Will sign off from a pulmonary/critical care perspective. 2. Hypertension Patient's blood pressures had to be held overnight secondary to blood pressure concerns. Patient does appear to have relatively advanced congestive heart failure. Will defer to cardiology on manipulation of medications. Nitroglycerin was discontinued overnight, but still has significant labetalol and lisinopril dosing. 3. Hyperglycemia/possible new onset diabetes mellitus Complicates care, management, recovery and prognosis. Patient's admission glucose was elevated at 176. Hemoglobin A1c is within normal range. Will discontinue blood sugar checks. Patient was confirmed a DNR Comfort Care arrest without intubation. Medical record has been updated. Code Visit Inpatient E&M: 06677 Subs Hosp L3
--- NOTE | 2019-10-23 08:25 | PN.CARD_ITS ---
Subjectve: The patient looks better and states she feels better-especially with her breathing-today compared to yesterday. She is currently without any O2 suppl ement. Objective: Vital Signs Temp Pulse Resp BP Pulse Ox 97.8 F 93 19 H 106/52 L 96 10/23/19 04:00 10/23/19 06:00 10/23/19 06:00 10/23/19 06:00 10/23/19 06:54 Oxygen Flow Rate (L/min) 2 Oxygen Delivery Method Room Air Weight: 177 lb 0.499 oz Body Mass Index (BMI) 32.0 Intake and Output for Last 24 Hours 10/21/19 10/22/19 10/23/19 23:59 23:59 23:59 Intake Total 550 / 550 0 / 0 Output Total 2900 / 2900 350 / 350 Balance -2350 / -2350 -350 / -350 General: Awake, Alert, Oriented x 3, Cooperative HEENT: Atraumatic, Normocephalic, PERRL, EOMI, Sclera Non Icteric Oral: Moist Mucosa Neck: Supple, Good ROM, No JVD Lungs: Clear to auscultation Cardiovascular: Regular Rhythm, Premature Ectopic Beats, Normal S1, Normal S2 Abdomen: Bowel Sounds Present, Soft, Non Tender Extremities: No edema Neurological: No Focal Motor or Sensory Deficit Psych/Mental Status: Appropriate 10/22/19 08:45: Lactic Acid 1.1 10/22/19 10:10: Troponin I 0.042 10/23/19 03:32: Sodium 141, Potassium 3.5, Chloride 105, Carbon Dioxide 28.0, Anion Gap 8, BUN 42 H, Creatinine 1.11 H, Est GFR (MDRD) Af Amer 62, Est GFR (MDRD) Non-Af 51 L, BUN/Creatinine Ratio 37.8 H, Glucose 114 H, Calcium 9.3 10/23/19 03:32: WBC 7.8, RBC 4.19 L, Hgb 12.7, Hct 39.0, MCV 93.1, MCH 30.3, MCHC 32.6, Plt Count 367, MPV 9.7, Immature Gran % (Auto) 0.500, Neut % (Auto) 65.6, Lymph % (Auto) 23.1, Whitley % (Auto) 9.1, Eos % (Auto) 1.2, Baso % (Auto) 0.5, Absolute Neuts (auto) 5.1, Nucleated RBC % 0 Rhythm: Sinus rhythm; PVCs; nonsustained VT (4 beats) ECHO: Interpretation Summary Mildly dilated left ventricle. Severe segmental systolic dysfunction (see wall motion). The estimated ejection fraction is 15 %. The left atrium is mildly enlarged. There is moderate mitral annular calcification. Extension of the mitral annular calcification onto the mitral valve leaflets. Moderate (2+) mitral valve insufficiency. Trivial tricuspid valve insufficiency. Mild focal aortic valve calcification. Right ventricular systolic pressure estimated to be 26 mmHg. Transmitral diastolic flow velocities suggest diastolic dysfunction (pseudonormal pattern). Medical Necessity - Tobacco Use Smoking Status: Never smoker Tobacco Use: Non-smoker Assessment/Plan 1. Acute on chronic CHF The patient appears to have findings compatible with acute on chronic CHF. Based upon her transthoracic echocardiogram it appears that this is systolic mediated. Her respiratory status appears to have improved. She will continue to be monitored. In the interim she will continue medical therapy which does include a combination of nitrates, beta-blockers, diuretics, afterload reducing agents, etc. Discussion with the patient with respect to reevaluation of her cardiovascular status with a diagnostic cardiac catheterization was held. Her and son were present at the time. The pros and cons and risks and benefits were discussed with her. She, along with her family members, were agreeable to this approach. Depending upon the outcome she may need not only medical therapy but consideration for revascularization therapy. If she does not require revascularization therapy then she will need continued evaluation and care for her underlying cardiomyopathy with medical therapy and consideration, based upon her underlying left bundle branch block pattern, for a EP referral for consideration for a biventricular ICD. 2. Abnormal ECG She does have an abnormal ECG. It demonstrates findings compatible with an underlying left bundle branch block pattern. 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 Again at the present time she will continue to be monitored, continue medical therapy, and continue her evaluation as noted above. 3. Hypertension She will continue medical management with adjustment as needed. Comment: The patient's case has been cussed with the patient, her , her son, and previously with Dr. Solis. Thank you for allowing me to participate in the care of your patient. Please don't hesitate to call if any issues arise.
[2019-10-23] MEDS: Aspirin 81 MG TAB.CHEW PO (08:38)
--- NOTE | 2019-10-23 09:05 | NURSING ---
Pt to central lab technician w/central lab technician RN's
[2019-10-23] MEDS: 0.9% Normal Saline 1,000 ML 50 ML IV (11:00)
--- NOTE | 2019-10-23 11:02 | CL.D_ITS ---
Patient Name: ETTA VEGA Study Date: 10/23/2019 Performing: Rolo Guzman MD Ht: 63 inches 160 cm : 1945 Wt: 176.6 lbs 80 kg Age: 74 Gender: female BSA: 1.83 PROCEDURE(S) PERFORMED [id number]/LV CLINICAL PROFILE AND INDICATIONS Indications: Cardiomyopathy Heart Failure: NYHA Class: 3, Newly Diagnosed: No, Heart Failure Type: Systolic Stress/Imaging Stress/Image Study Performed: No Angina Classification Anginal Classification w/in 2 Weeks: No symptoms CAD Presentations: No Sxs, no angina. CONCLUSIONS Elevated Left Ventricular End Diastolic Pressure Global LV systolic dysfunction- Severe LVEF: by LV gram 20 % Normal coronary arteries RECOMMENDATIONS Risk factor modification Medical therapy EP consultation: consideration for BiV ICD (secondary to underlying LBBB) DESCRIPTION OF PROCEDURE The patient arrived to the procedure lab. The risks and benefits of the procedure as well as a full d escription of our services here and current unavailability of surgical backup were fully explained to the patient and/or their significant other prior to the catheterization. The Timeout was completed, verifying the correct patient and procedure. The patient's procedural site was prepped and draped in the usual fashion. Local anesthetic was given subcutaneously to right radial region with Lidocaine 2% . Using a modified Seldinger technique, arterial access was obtained via the right radial artery, a 6 Fr sheath was inserted. Left Coronary Artery selective angiography was performed in multiple views u sing a 5 Fr. 4.0 [place] catheter. Right Coronary Artery selective angiography was then performed in mu ltiple views using a 5 Fr. 3DRC (Jian) catheter. Left Ventriculography was performed in MORALES proje ction using a 5 Fr. Pigtail catheter. LV to AO pullback pressures were then recorded.The arterial sheath was pulled and a TR Band was applied for hemostasis CORONARY ANGIOGRAPHY DOMINANCE: Right Dominant LEFT HEART ASSESSMENT Left Ventricular Ejection Fraction: by LV Gram 20 % Global Hypokinesis - Severe Elevated Left Ventricular End Diastolic Pressure LVEDP: 25 mmHg LEFT MAIN: Angiographically normal LEFT ANTERIOR DESCENDING ARTERY: Angiographically normal CIRCUMFLEX ARTERY: Angiographically normal RIGHT CORONARY ARTERY: Angiographically normal AORTIC ROOT: Angiographically normal COMPLICATIONS No Complications PROCEDURE MEDICATIONS Versed 1 mg IV Fentanyl 50 mcg IV Oxygen: 2 L/min via nasal cannula SUMMARY OF HEMODYNAMIC DATA Time AIR REST ECG 09:40:01 AO 109/69 (85) SA 10:06:34 LV 117/3, 27 10:25:20 LV 118/3, 25 10:25:27 LV 118/7, 25 10:26:50 LV 120/4, 31 10:26:58 LVp 118/4, 27 10:27:09 AOp 117/53 (79) 10:27:14 Signed By Rolo Guzman MD On 10/23/2019 11:01:16 AM Rolo Guzman MD
--- NOTE | 2019-10-23 12:49 | PN_ITS ---
Patient Problems: Active and Suspected Problems Acute respiratory failure with hypoxia (Acute) Acute exacerbation of CHF (congestive heart failure) (Acute) Abnormal electrocardiogram (Acute) Reason for Visit: chf Subjective: breathing well. tolerated LHC well. Vitals/I&O's: Vital Signs Temp Pulse Resp BP Pulse Ox 36.6 C 93 19 H 106/52 L 96 10/23/19 04:00 10/23/19 06:00 10/23/19 06:00 10/23/19 06:00 10/23/19 06:54 Oxygen Flow Rate (L/min) 2 Oxygen Delivery Method Room Air Weight: 80.3 kg Body Mass Index (BMI) 32.0 Intake and Output for Last 24 Hours 10/21/19 10/22/19 10/23/19 23:59 23:59 23:59 Intake Total 550 / 550 0 / 0 Output Total 2900 / 2900 350 / 350 Balance -2350 / -2350 -350 / -350 General: Oriented x3, No apparent distress HEENT: Atraumatic, PERRLA, EOMI, Normocephalic Oral: Moist Mucosa, No Gingival or Mucosal Lesions/ Ulcerations Neck: No Nodes, Trachea Midline Lungs: Clear to auscultation, Normal air movement, No rhonchi, No wheeze, No rales Cardiovascular: Regular rate, Regular Rhythm, Normal S1, Normal S2, No murmurs Abdomen: Bowel Sounds Present, Soft, Non Tender, Non-Distended, No Hepato- splenomegaly Extremities: No Calf Tenderness, Edema Skin: No rashes, No breakdown Psych/Mental Status: Normal Affect, Appropriate Laboratory Results 10/22/19 17:25: POC Glucose 95 10/22/19 21:24: POC Glucose 116 H 10/23/19 03:32: Sodium 141, Potassium 3.5, Chloride 105, Carbon Dioxide 28.0, Anion Gap 8, BUN 42 H, Creatinine 1.11 H, Estim Creat Clear Calc 36.78, Est GFR (MDRD) Af Amer 62, Est GFR (MDRD) Non-Af 51 L, BUN/Creatinine Ratio 37.8 H, Glucose 114 H, Calcium 9.3 10/23/19 03:32: WBC 7.8, RBC 4.19 L, Hgb 12.7, Hct 39.0, MCV 93.1, MCH 30.3, MCHC 32.6, RDW Std Deviation 45.7 H, RDW Coeff of Tanya 13.5, Plt Count 367, MPV 9.7, Immature Gran % (Auto) 0.500, Neut % (Auto) 65.6, Lymph % (Auto) 23.1, [place] % (Auto) 9.1, Eos % (Auto) 1.2, Baso % (Auto) 0.5, Absolute Neuts (auto) 5.1, Absolute Lymphs (auto) 1.80, Nucleated RBC % 0 Current Medications Acetaminophen (Tylenol) 650 mg PO Q6H PRN PRN PRN Reason: Pain Score 1-10/Temp > 100.7 F Al Hydroxide/Mg Hydroxide (Mylanta Ii) 30 ml PO Q6H PRN PRN PRN Reason: Gastric Burning Albuterol Sulfate (Ventolin Aerosols) 2.5 mg INHALATION Q2H PRN PRN PRN Reason: SOB/Wheezing Aspirin (Aspirin, Baby) 81 mg PO DAILY@0800 [facility] Last Admin: 10/23/19 08:38 Dose: 81 mg Documented by: Furosemide (Lasix) 40 mg PO BID@1000,1800 [facility] Glucagon () 1 mg IM .X1 PRN PRN Reason: Hypoglycemia Guaifenesin (Robitussin) 10 ml PO Q4H PRN PRN PRN Reason: COUGH Dextrose (Dextrose 10%-Water) 250 mls @ 999 mls/hr IV .Q16M PRN; Protocol PRN Reason: HYPOGLYCEMIA Sodium Chloride () 1,000 mls @ 15 mls/hr IV .Q48H [facility] Last Admin: 10/22/19 21:26 Dose: 15 mls/hr Documented by: Sodium Chloride () 1,000 mls @ 50 mls/hr IV .Q20H [facility] Labetalol HCl (Trandate) 100 mg PO BID [facility] Last Admin: 10/22/19 21:25 Dose: 100 mg Documented by: Lisinopril (Zestril) 10 mg PO BID [facility] Last Admin: 10/22/19 20:13 Dose: Not Given Documented by: Magnesium Hydroxide (Milk Of Magnesia) 30 ml PO DAILY PRN PRN PRN Reason: Constipation Melatonin (Melatonin) 3 mg PO QHS PRN PRN PRN Reason: INSOMNIA Morphine Sulfate () 2 mg IV Q3H PRN PRN PRN Reason: Pain Score 6-10/10 Ondansetron HCl (Zofran) 4 mg IV Q8H PRN PRN PRN Reason: NAUSEA/VOMITING Prochlorperazine Edisylate (Compazine Iv) 5 mg IV Q4H PRN PRN PRN Reason: Breakthrough Nausea/Vomiting Psyllium Hydrophilic Mucilloid (Metamucil) 1 packet PO DAILY PRN PRN PRN Reason: Constipation Senna/Docusate Sodium (Senokot-S, Ana-Colace) 2 tablet PO BID PRN PRN PRN Reason: Constipation Sodium Chloride () 10 - 40 ml IV UD PRN PRN Reason: SALINE FLUSH Throat Lozenges (Cepacol Sore Throat Lozenge) 1 lozenge MUCOUS MEM Q2H PRN PRN PRN Reason: SORE THROAT Medical Necessity - Tobacco Use Smoking Status: Never smoker Tobacco Use: Non-smoker Assessment/Plan All Active Problems Acute respiratory failure with hypoxia (Acute) Acute exacerbation of CHF (congestive heart failure) (Acute) Abnormal electrocardiogram (Acute) 1. acute HFrEF * EF 15% * LHC with normal coronaries * continue furosemide, lisinopril, labetolol * eventually, she will need an EP eval of BiV AICD 2. Acute hypoxic respiratory failure * 2/2 above * weaned from BiPAP, to now, room air 3. lactic acidosis * likely 2/2 hypoxia 4. VTE prophylaxis. enoxaparin FARSHAD family at bedside TF to PCU, ok by cards Code Visit Inpatient E&M: 85174 Subs Hosp L2
--- NOTE | 2019-10-23 16:01 | CHAPLAIN ---
Type of Pastoral Visit _x__ Initial Visit ___ Follow-up Visit ___ On-call Visit ___ General Patient Visit ___ Spiritual Assessment ___ Family Conference ___ Bereavement ___ Rapid Response ___ Code Blue ___ Other (describe below) Pastoral Care Referral From _x__ Patient ___ Family ___ Nurse ___ Physician ___ Insert Molding Operator ___ Preparer Making Department ___ Other (describe below) Sacrament/Intervention _x__ Active listening ___ Anointing ___ Religious ___ Bereavement ___ Communion ___ Tali exploration ___ ___ Life review ___ Prayer ___ Reconciliation ___ Sacrament of Sick _x__ Supportive presence ___ Wedding ___ Other (describe below) Pastoral Comments
[2019-10-23] MEDS: Furosemide 40 MG Tablet PO (17:47)
[2019-10-23] MEDS: Labetalol 100 MG Tablet PO (21:15)
[2019-10-23] MEDS: Lisinopril 10 MG Tablet PO (21:15)
[2019-10-24 01:11] VITALS: PULSE 84
[2019-10-24 03:10] VITALS: BP 100/54; PULSE 85; RESP 18; TEMP 36.3; O2SAT 95
[2019-10-24 05:30] VITALS: PULSE 84
[2019-10-24 05:47] LABS: Hematocrit 38.2 % (37-47); Hemoglobin 12.4 g/dL (12.0-15.0)
[2019-10-24 06:18] LABS: Anion Gap 4 (5-15); BUN 32 mg/dL (7-18); BUN/Creat Ratio 30.5 RATIO (10-20); Calcium,Total 9.4 mg/dL (8.5-10.1); Chloride 108 mmol/L (98-107); Creatinine, Serum 1.05 mg/dL (0.55-1.02); EST Glomerular Filtration Rate 54 mL/min (>60); Est Glom Filt Rate - Afr Amer 66 mL/min (>60); Estimated Creatinine Clearance 38.88 ml/min; Glucose 108 mg/dL (74-106); Potassium 3.4 mmol/L (3.5-5.1); Sodium Level 141 mmol/L (136-145)
[2019-10-24 06:55] VITALS: PULSE 96
[2019-10-24] MEDS: Labetalol 100 MG Tablet PO (08:59)
[2019-10-24] MEDS: Lisinopril 10 MG Tablet PO (08:59)
[2019-10-24] MEDS: Aspirin 81 MG TAB.CHEW PO (08:59)
[2019-10-24] MEDS: Furosemide 40 MG Tablet PO (08:59)
[2019-10-24 09:00] VITALS: BP 112/57; PULSE 107; RESP 16; TEMP 36.4; O2SAT 97
--- NOTE | 2019-10-24 10:15 | PCM.PN.CARD ---
Subjectve: The patient is awake and alert. She states she feels better. She has had no new acute complaints. Objective: Vital Signs Temp Pulse Resp BP Pulse Ox 97.5 F L 107 H 16 112/57 L 97 10/24/19 09:00 10/24/19 09:00 10/24/19 09:00 10/24/19 09:00 10/24/19 09:00 Oxygen Flow Rate (L/min) 2 Oxygen Delivery Method Room Air Weight: 179 lb 0.246 oz Body Mass Index (BMI) 32.0 Intake and Output for Last 24 Hours 10/22/19 10/23/19 10/24/19 23:59 23:59 23:59 Intake Total 550 / 550 573.5 / 573.5 60 / 60 Output Total 2900 / 2900 1050 / 1050 200 / 200 Balance -2350 / -2350 -476.5 / -476.5 -140 / -140 General: Awake, Alert, Oriented x 3, Cooperative, No Acute Distress HEENT: Atraumatic, Normocephalic, PERRL, EOMI, Sclera Non Icteric Oral: Moist Mucosa Neck: Supple, Good ROM, No JVD Lungs: Clear to auscultation Cardiovascular: Regular Rhythm, Normal S1, Normal S2 Vascular: Normal Radial Pulses Abdomen: Bowel Sounds Present, Soft, Non Tender Extremities: No edema Neurological: No Focal Motor or Sensory Deficit Psych/Mental Status: Appropriate 10/24/19 05:20: Hgb 12.4, Hct 38.2 10/24/19 05:20: Sodium 141, Potassium 3.4 L, Chloride 108 H, Carbon Dioxide 29.0, Anion Gap 4 L, BUN 32 H, Creatinine 1.05 H, Est GFR (MDRD) Af Amer 66, Est GFR (MDRD) Non-Af 54 L, BUN/Creatinine Ratio 30.5 H, Glucose 108 H, Calcium 9.4 Rhythm: Sinus rhythm Medical Necessity - Tobacco Use Smoking Status: Never smoker Tobacco Use: Non-smoker Assessment/Plan 1. Acute on chronic CHF The patient appears to have findings compatible with acute on chronic CHF. Based upon her transthoracic echocardiogram it appears that this is systolic mediated. Her respiratory status appears to have improved. She will continue to be monitored. In the interim she will continue medical therapy which does include a combination of nitrates, beta-blockers, diuretics, afterload reducing agents, etc. The patient has undergone subsequent evaluation with diagnostic cardiac catheterization. She does appear to have findings compatible with a non-CAD related cardiomyopathy. 2. Non-CAD related cardiomyopathy The patient will continue medical management. Based upon her findings she should be considered for referral to an EP center for consideration for biventricular ICD. 3. Abnormal ECG She does have an abnormal ECG. It demonstrates findings compatible with an underlying left bundle branch block pattern. Again at the present time she will continue to be monitored, continue medical therapy, and continue her evaluation as noted above. 4. Hypertension She will continue medical management with adjustment as needed. Comment: The patient's case has been cussed with the patient and her . They are agreeable to continued outpatient cardiovascular follow-up and an EP referral for consideration for biventricular ICD. Thank you for allowing me to participate in the care of your patient. Please don't hesitate to call if any issues arise.
--- NOTE | 2019-10-24 12:19 | PCM.DC ---
- Discharge Diagnoses Current Active Problems: Current Active and Chronic Problems Acute respiratory failure with hypoxia (Acute) Acute exacerbation of CHF (congestive heart failure) (Acute) HTN (hypertension) (Chronic) Abnormal electrocardiogram (Acute) You will use the following diet at home:: Cardiac, Fluid restricted (specify 2000 mls, 1500 mls) - 1500 Your food should be the consistency of: Regular Your liquids should be the consistency of: Regular/Thin Discharge Activity: Return to Normal Activity Call your doctor if you observe: Shortness of breath, Swelling in the ankles Instructions: Heart Failure, Heart Failure: Evaluating Your Heart, Heart Failure: Making Changes to Your Diet, Heart Failure: Medications to Help Your Heart, Heart Failure: Procedures That May Help, Heart Failure: Tracking Your Weight, Taking ESTEPHANIA Inhibitors, Taking Medication to Control Heart Failure, What Is Heart Failure? Allergies/Adverse Reactions: Allergies No Known Allergies Allergy (Verified 10/22/19 04:03) Medications to take at Discharge Aspirin [Aspirin, Baby] 81 mg PO DAILY@0800 tab.chew 10/24/19 Furosemide [Lasix] 40 mg PO BID@1000,1800 #60 tab 10/24/19 Labetalol [Trandate (Beta Daniel)] 100 mg PO BID #60 tab 10/24/19 Lisinopril [Zestril] 10 mg PO BID #60 tab 10/24/19 Potassium Chloride [K-Dur] 20 meq PO DAILY #30 tab 10/24/19 The following prescriptions were given: Potassium Chloride [K-Dur] 20 meq PO DAILY #30 tab Transmission Status: Pending to [facility] Furosemide [Lasix] 40 mg PO BID@1000,1800 #60 tab Transmission Status: Pending to [facility] Labetalol [Trandate (Beta Daniel)] 100 mg PO BID #60 tab Transmission Status: Pending to [facility] Lisinopril [Zestril] 10 mg PO BID #60 tab Transmission Status: Pending to [facility] Primary Care Physician: Toni Lafleur DO [Primary Care Provider] - Within 1 Week Test Results: Test results from this visit will be discussed in further detail at your follow-up appointment, if applicable. Please Follow Up With: Rolo Guzman MD - cardiology When: 12/06/2019. already scheduled Proposed Discharge Date: 10/24/19
--- NOTE | 2019-10-24 12:21 | PCM.DC.SUM ---
Discharge Date and Diagnosis - Problem List Patient Problems: Active and Suspected Problems Acute respiratory failure with hypoxia (Acute) Acute exacerbation of CHF (congestive heart failure) (Acute) Abnormal electrocardiogram (Acute) Date of Admission: 10/22/19 Date of Discharge: 10/24/19 - Primary Discharge Diagnosis Active and Suspected Problems Acute respiratory failure with hypoxia (Acute) Acute exacerbation of CHF (congestive heart failure) (Acute) Abnormal electrocardiogram (Acute) - Secondary Discharge Diagnosis Chronic Problems HTN (hypertension) (Chronic) Hospital Course and Treatment Imaging Results: Clinical Impression(s) from Imaging Studies Chest X-Ray 10/22/19 04:20 IMPRESSION: Congestive heart failure. Electronically Signed: Sal Jama, at 5:11 EST Tel , Service support , [facility]; cardiology Operations: None Procedures: 2-D Echocardiogram, Cardiac catheterization Summary of Care Provided: The patient is a 74 year old F presents with shortness of breath, found to have CHF. 1. acute HFrEF EF 15% LHC with normal coronaries continue furosemide, lisinopril, labetolol eventually, she will need an EP eval of BiV AICD 2. Acute hypoxic respiratory failure 2/2 above weaned from BiPAP, to now, room air 3. lactic acidosis likely 2/2 hypoxia [] Patient Problems: Active and Suspected Problems Acute respiratory failure with hypoxia (Acute) Acute exacerbation of CHF (congestive heart failure) (Acute) Abnormal electrocardiogram (Acute) - Physical Exam Vitals/I&O's: Vital Signs Temp Pulse Resp BP Pulse Ox 36.4 C L 107 H 16 112/57 L 97 10/24/19 09:00 10/24/19 09:00 10/24/19 09:00 10/24/19 09:00 10/24/19 09:00 Oxygen Flow Rate (L/min) 2 Oxygen Delivery Method Room Air Weight: 81.2 kg Body Mass Index (BMI) 32.0 Intake and Output for Last 24 Hours 10/22/19 10/23/19 10/24/19 23:59 23:59 23:59 Intake Total 550 / 550 573.5 / 573.5 60 / 60 Output Total 2900 / 2900 1050 / 1050 200 / 200 Balance -2350 / -2350 -476.5 / -476.5 -140 / -140 General: Alert, Cooperative, No apparent distress HEENT: Atraumatic, Normocephalic Oral: Moist Mucosa, No Gingival or Mucosal Lesions/ Ulcerations Neck: No Nodes, Trachea Midline Lungs: Clear to auscultation, Normal air movement, No rhonchi, No wheeze, No rales Cardiovascular: Regular rate, Regular Rhythm, Normal S1, Normal S2, No murmurs Abdomen: Bowel Sounds Present, Soft, Non Tender, Non-Distended Extremities: No edema, No Calf Tenderness Psych/Mental Status: Normal Affect, Appropriate Laboratory Results 10/24/19 05:20: Hgb 12.4, Hct 38.2 10/24/19 05:20: Sodium 141, Potassium 3.4 L, Chloride 108 H, Carbon Dioxide 29.0, Anion Gap 4 L, BUN 32 H, Creatinine 1.05 H, Estim Creat Clear Calc 38.88, Est GFR (MDRD) Af Amer 66, Est GFR (MDRD) Non-Af 54 L, BUN/Creatinine Ratio 30.5 H, Glucose 108 H, Calcium 9.4 Current Medications Acetaminophen (Tylenol) 650 mg PO Q6H PRN PRN PRN Reason: Pain Score 1-10/Temp > 100.7 F Al Hydroxide/Mg Hydroxide (Mylanta Ii) 30 ml PO Q6H PRN PRN PRN Reason: Gastric Burning Albuterol Sulfate (Ventolin Aerosols) 2.5 mg INHALATION Q2H PRN PRN PRN Reason: SOB/Wheezing Aspirin (Aspirin, Baby) 81 mg PO DAILY@0800 [facility] Last Admin: 10/24/19 08:59 Dose: 81 mg Documented by: Furosemide (Lasix) 40 mg PO BID@1000,1800 [facility] Last Admin: 10/24/19 08:59 Dose: 40 mg Documented by: Glucagon () 1 mg IM .X1 PRN PRN Reason: Hypoglycemia Guaifenesin (Robitussin) 10 ml PO Q4H PRN PRN PRN Reason: COUGH Dextrose (Dextrose 10%-Water) 250 mls @ 999 mls/hr IV .Q16M PRN; Protocol PRN Reason: HYPOGLYCEMIA Sodium Chloride () 1,000 mls @ 15 mls/hr IV .Q48H [facility] Last Infusion: 10/23/19 18:20 Dose: Infused Documented by: Labetalol HCl (Trandate) 100 mg PO BID [facility] Last Admin: 10/24/19 08:59 Dose: 100 mg Documented by: Lisinopril (Zestril) 10 mg PO BID [facility] Last Admin: 10/24/19 08:59 Dose: 10 mg Documented by: Magnesium Hydroxide (Milk Of Magnesia) 30 ml PO DAILY PRN PRN PRN Reason: Constipation Melatonin (Melatonin) 3 mg PO QHS PRN PRN PRN Reason: INSOMNIA Morphine Sulfate () 2 mg IV Q3H PRN PRN PRN Reason: Pain Score 6-10/10 Ondansetron HCl (Zofran) 4 mg IV Q8H PRN PRN PRN Reason: NAUSEA/VOMITING Prochlorperazine Edisylate (Compazine Iv) 5 mg IV Q4H PRN PRN PRN Reason: Breakthrough Nausea/Vomiting Psyllium Hydrophilic Mucilloid (Metamucil) 1 packet PO DAILY PRN PRN PRN Reason: Constipation Senna/Docusate Sodium (Senokot-S, Ana-Colace) 2 tablet PO BID PRN PRN PRN Reason: Constipation Sodium Chloride () 10 - 40 ml IV UD PRN PRN Reason: SALINE FLUSH Throat Lozenges (Cepacol Sore Throat Lozenge) 1 lozenge MUCOUS MEM Q2H PRN PRN PRN Reason: SORE THROAT Discharge Activity: Return to Normal Activity Call your doctor if you observe: Shortness of breath, Swelling in the ankles Home Medications: Medications to take at Discharge Aspirin [Aspirin, Baby] 81 mg PO DAILY@0800 tab.chew 10/24/19 Furosemide [Lasix] 40 mg PO BID@1000,1800 #60 tab 10/24/19 Labetalol [Trandate (Beta Daniel)] 100 mg PO BID #60 tab 10/24/19 Lisinopril [Zestril] 10 mg PO BID #60 tab 10/24/19 Potassium Chloride [K-Dur] 20 meq PO DAILY #30 tab 10/24/19 Following Prescrptions Were Given to Patient: Potassium Chloride [K-Dur] 20 meq PO DAILY #30 tab Transmission Status: Pending to [facility] Furosemide [Lasix] 40 mg PO BID@1000,1800 #60 tab Transmission Status: Pending to [facility] Labetalol [Trandate (Beta Daniel)] 100 mg PO BID #60 tab Transmission Status: Pending to [facility] Lisinopril [Zestril] 10 mg PO BID #60 tab Transmission Status: Pending to [facility] Primary Care Physician: Toni Lafleur DO [Primary Care Provider] - Within 1 Week Please Follow Up With: Rolo Guzman MD - cardiology When: 12/06/2019. already scheduled Patient Instructions: Taking ESTEPHANIA Inhibitors, Taking Medication to Control Heart Failure, What Is Heart Failure?, Heart Failure: Tracking Your Weight, Heart Failure: Procedures That May Help, Heart Failure: Making Changes to Your Diet, Heart Failure: Evaluating Your Heart, Heart Failure: Medications to Help Your Heart, Heart Failure Disposition: Home Minutes spent on discharge:: 32 Patient Condition:: Fair Medical Necessity - Tobacco Use Smoking Status: Never smoker Tobacco Use: Non-smoker Meaningful Use Info Meaningful Use Diagnoses (Choose all that apply): CHF - CHF ESTEPHANIA/ARB ordered at discharge?: Yes Documented LVEF (%): 15 Code Visit Inpatient E&M: 39931 Disch Hosp
[2019-10-24 12:45] VITALS: BP 102/58; PULSE 101; RESP 16; TEMP 36.6; O2SAT 95
--- NOTE | 2019-10-24 13:57 | PHA.DC.MC ---
Pharmacy Service has performed discharge medication reconciliation and counseling for this patient. 1. LISINOPRIL 10MG PO BID 2. FUROSEMIDE 40MG PO BIDLX 3. POTASSIUM CHLORIDE 20MEQ PO DAILYCM The patient's discharge medication list was reviewed for discrepancies and discrepancies were resolved. Home Medications Aspirin [Aspirin, Baby] 81 mg PO DAILY@0800 tab.chew 10/24/19 Furosemide [Lasix] 40 mg PO BID@1000,1800 #60 tab 10/24/19 Labetalol [Trandate (Beta Daniel)] 100 mg PO BID #60 tab 10/24/19 Lisinopril [Zestril] 10 mg PO BID #60 tab 10/24/19 Potassium Chloride [K-Dur] 20 meq PO DAILY #30 tab 10/24/19 The patient was counseled on the following discharge medications and changes in medications for homegoing were reviewed. The Reason for Use, instructions for use, and potential side effects were reviewed for all new medications. The patient's questions regarding all of their medications were answered. The patient was able to verbally demonstrate an understanding of their discharge medications.
== END 2019-10-24 14:20 | disposition home or self-care (01) | DRG 286 ==
LOC: ED 04:27 → ICU 04:49 → PCU 10-23 16:36
PROVIDERS: Internal Medicine; Internal Medicine Cardiovascular Disease; Admitting Provider Family Medicine; Emergency Provider Emergency Medicine; PCP Family Medicine
DX: I11.0 Hypertensive heart disease with heart failure (principal); J96.01 Acute respiratory failure with hypoxia; I50.21 Acute systolic (congestive) heart failure; E87.2 Acidosis; Z66 Do not resuscitate; I44.7 Left bundle-branch block, unspecified
CPT/HCPCS: 36415; 36600; 71045; 80048; 82803; 82962; 83036; 83605; 83735; 84443; 84484; 85014; 85018; 85025; 93005; 93306; 93458; 94002; 97162; 97166; 97530; 97535; 97802; 99152; 99153; 99285; J7030; Q9967; A4216; C1769; C1894; J1940

== ENCOUNTER 2021-08-01 17:48 | Inpatient (IN) | payer OTHER, SELFPAY ==
[2021-08-01] VITALS (16 sets, daily range): BP systolic 105–149; BP diastolic 61–114; PULSE 100–151; RESP 12–45; TEMP 36.1–36.7; O2SAT 95–100; BMI 34.0; BMI 33.4
--- NOTE | 2021-08-01 17:54 | EKG12_ITS ---
Test Reason : SOB Blood Pressure : / mmHG Vent. Rate : 143 BPM Atrial Rate : 144 BPM P-R Int : 104 ms QRS Dur : 136 ms QT Int : 330 ms P-R-T Axes : 000 -33 092 degrees QTc Int : 509 ms Sinus tachycardia with short SC with occasional Premature ventricular complexes and Fusion complexes Left axis deviation Left bundle branch block Abnormal ECG Confirmed by SHANEL BAÑUELOS, DANIKA ([id number]), editor managing director MAGGIE HYATT ([id number]) on 08/04/2021 9:09:31 AM Referred By: KILLIAN Confirmed By:DANIKA UGARTE MD
[2021-08-01 18:12] LABS: Absolute Lymphocyte Count 3.27 X10^3/uL (0.83-4.51); Absolute Neutrophil Count 11.1 X10^3/uL (2.0-7.7); Basophil# 0.05 X10^3/uL; Basophil% 0.3 % (0-1); Hematocrit 38.7 % (37-47); Lymphocyte # 3.27 X10^3/ul (0.83-4.51); Lymphocyte % 21.1 % (19-41); Mean Corp Hgb Conc 33.6 g/dL (32-36); Mean Corpuscular Hgb 31.8 pg (27.0-32.0); Mean Corpuscular Volume 94.6 fL (81-99); Mean Platelet Vol. 9.9 fl (6.2-12.0); Monocyte# 0.97 X10^3/uL; Monocyte% 6.3 % (0-10); NRBC Flagged by Analyzer 0 % (0-5); Neutrophil # 11.13 X10^3/uL (2.7-7.7); Neutrophil % 71.8 % (47-70); Platelet Count 394 K/mm3 (150-450); RBC Distribution Width CV 13.9 % (11.6-14.6); RBC Distribution Width SD 48.4 fl (35.1-43.9); Red Blood Count 4.09 M/mm3 (4.2-5.4); White Blood Count 15.5 K/mm3 (4.4-11.0)
--- NOTE | 2021-08-01 18:15 | RAD_ITS ---
STUDY: X-RAY CHEST REASON FOR EXAM: Female, 76 years old. cough TECHNIQUE: Single AP portable view of the chest. COMPARISON: October 22, 2019 FINDINGS: Moderate irregular consolidation is present in the bilateral mid to lower lung phelan. There is no demonstrated pleural abnormality. Normal size heart. Normal mediastinum and nu. Normal visualized pulmonary arteries. There is atherosclerotic calcification of the aortic arch with tortuosity. There are diffuse degenerative changes of the visualized thoracic spine. Normal visualized ribs, clavicles, and shoulders. There is no demonstrated abnormality of the visualized soft tissue structures of the upper abdomen. Upper quadrant surgical clips are present. RAD/Chest 1 View (Portable) IMPRESSION: 1. Moderate irregular consolidation is present in the bilateral mid to lower lung phelan. Electronically Signed: Adan Rojo MD at 18:39 EST , Service support ,
[2021-08-01] MEDS: Ipratropium/Albuterol Sulfate 3 ML AMPUL.NEB INHALATION (18:17)
[2021-08-01 18:28] LABS: ALB/GLOB Ratio 0.8 RATIO (0.9-2.4); AST(SGOT) 47 U/L (15-37); Alanine Aminotransfer ALT/SGPT 43 U/L (13-56); Albumin, Serum 3.2 g/dL (3.2-5.0); Alkaline Phosphatase 76 U/L (45-117); Anion Gap 9 (5-15); BUN 18 mg/dL (7-18); BUN/Creat Ratio 14.6 RATIO (10-20); Calcium,Total 8.8 mg/dL (8.5-10.1); Chloride 101 mmol/L (98-107); Creatinine, Serum 1.23 mg/dL (0.55-1.02); EST Glomerular Filtration Rate 45 mL/min (>60); Est Glom Filt Rate - Afr Amer 55 mL/min (>60); Estimated Creatinine Clearance 30.78 ml/min; Glucose 294 mg/dL (74-106); Potassium 4.3 mmol/L (3.5-5.1); Protein, Total 7.2 g/dL (6.4-8.2); Sodium Level 133 mmol/L (136-145); Troponin-I HS 24 pg/mL (3.0-54.0)
[2021-08-01 18:34] LABS: BNP,B-Type NATRIURETIC PEPTIDE 1059.4 pg/mL (0-100)
[2021-08-01 18:41] LABS: Lactic Acid 2.2 mmol/L (0.4-1.9)
--- NOTE | 2021-08-01 18:46 | CT_ITS ---
STUDY: CTA CHEST REASON FOR EXAM: Female, 76 years old.SOB x 1 wk. Worsened today. 72% on RA for EMS @ [facility] office [employer]. On BiPAP. pulmonary embolism RADIATION DOSAGE (If Supplied By Facility): CTDIvol = ( 10.81 ) mGy, DLP = ( 454.74 ) mGycm TECHNIQUE: The examination was performed with the intravenous administration of IV 100mL Isovue-370. Post-processing of the angiographic images was performed, with multiplanar reformation and 3D reconstruction. Individualized dose optimization techniques were used for this CT. COMPARISON: Chest x-ray dated August 01, 2021 FINDINGS: There is severe consolidation throughout the left lower lobe. Moderate consolidation is present in the posterior inferior aspect of the left upper lobe. Mild consolidation is seen in the right middle and lower lobes. The right upper lobe is clear. Trace bilateral pleural effusions are present. Normal enhancement of the main pulmonary artery and right and left pulmonary arteries. Normal enhancement of the bilateral peripheral pulmonary arteries. There is no demonstrated pulmonary embolism. Normal thoracic aorta and visualized great vessels. There is no demonstrated aortic dissection. Normal heart size. A small anterior inferior pericardial effusion is present. Normal mediastinum. Normal hilar regions. Normal visualized trachea and bronchi. The lungs are well expanded. Normal chest wall structures. There are degenerative changes of thoracic spine. A moderate size simple cortical based cyst is present in the anterior aspect and upper pole of the left kidney measuring 7.[address]/CTA Chest W/WO Contrast IMPRESSION: 1. Multifocal pneumonia - There is severe consolidation throughout the left lower lobe. Moderate consolidation is present in the posterior inferior aspect of the left upper lobe. Mild consolidation is seen in the right middle and lower lobes. The right upper lobe is clear. 2. No demonstrated pulmonary embolism or arterial dissection. Electronically Signed: Adan Rojo MD at 21:23 EST , Service support ,
[2021-08-01] MEDS: Albuterol 2.5 MG/3 ML VIAL.NEB. INHALATION (18:57)
[2021-08-01] MEDS: Ceftriaxone 1 GM/50 ML BAG IV (19:01)
--- NOTE | 2021-08-01 19:32 | ED.VIS.DYS ---
HPI History of Present Illness Chief Complaint: Shortness of Breath Informant: patient, spouse/S.O. and PCP Narrative Narrative: 76-year-old [place] female has been reportedly ill for the past couple days. She has a history of episodes of bronchitis and a history of congestive heart failure with ejection fraction of 20%. She reportedly was seen earlier received a dose of Decadron but returned with significant shortness of breath and was found to be 80% on room air and in respiratory distress. EMS was called. She is not Covid vaccinated. She has had some phlegm production. History is somewhat limited due to her respiratory distress. Her can give some information and does note that she has been febrile After discussion with the patient's and the patient at the bedside she does not want intubation or CPR should she require it. [facility] Medical History Abnormal electrocardiogram Acute exacerbation of CHF (congestive heart failure) Acute respiratory failure with hypoxia Chronic systolic (congestive) heart failure Essential hypertension LBBB (left bundle branch block) Non-rheumatic mitral regurgitation Nonischemic cardiomyopathy Home Medications labetalol 100 mg PO BID #60 tab 10/24/19 [Rx Last Taken Unknown] lisinopril 10 mg tablet 10 mg PO DAILY #90 tab 04/15/21 [Rx Last Taken Unknown] furosemide 40 mg tablet 40 mg PO DAILY #90 tab 06/04/21 [Rx Last Taken Unknown] potassium chloride 20 mEq tablet,extended release(part/cryst) 20 meq PO DAILY #90 tablet 06/04/21 [Rx Last Taken Unknown] Allergy/AdvReac Type Severity Reaction Status Date / Time torsemide AdvReac Unknown Unknown Verified 02/29/20 13:46 Family History Mother Myocardial infarction, Onset Age: 56 Father Myocardial infarction, Onset Age: 81 Other Heart disease Surgical History History of appendectomy History of cholecystectomy History of knee replacement procedure of left knee History of left heart catheterization (LHC) (~10/23/19) Social History Smoking Status: Never smoker alcohol intake: never substance use type: does not use ROS ROS ED Constitutional Constitutional ED: Reports chills and fever(s); Denies weight loss Eyes Eyes: Denies change in vision or diplopia ENT ENT ED: Reports rhinorrhea; Denies ear pain or sore throat Cardiovascular Cardiovascular: Reports racing heartbeat; Denies chest pain, orthopnea or palpitations Respiratory/Chest Respiratory/Chest: Reports cough, dyspnea, dyspnea on exertion and sputum; Denies orthopnea Gastrointestinal Gastrointestinal: Denies abdominal pain, diarrhea, nausea or vomiting Genitourinary Genitourinary ED: Denies dysuria, hematuria or urinary frequency Musculoskeletal Musculoskeletal: Reports myalgias; Denies arthralgias Integumentary Denies abscess or rash Neurologic Neurologic: Reports headache(s); Denies weakness Psychiatric Psychiatric: Denies anxiety, depression, suicidal ideation or suicidal thoughts Endocrine Endocrinology: Denies polydipsia, polyphagia or polyuria Allergic/Immunologic Allergic/Immunologic ED: Denies mouth swelling, tongue swelling or urticaria EXAM Physical Exam Const Vital Signs: 08/01/21 17:49 08/01/21 17:50 08/01/21 17:56 Temperature 98.1 F 97.0 F L Temperature Source Temporal Temporal Pulse Rate 151 H 141 H 144 H Respiratory Rate 28 H 41 H 44 H Respiratory Effort Respiratory Depth Respiratory Pattern Blood Pressure 149/114 H 142/86 H Blood Pressure Mean 125 104 Pulse Ox 100 100 100 Oxygen Delivery Method Bi-pap Bi-pap Fraction of Inspired Oxygen (FIO2) 100 08/01/21 18:02 08/01/21 18:04 08/01/21 18:18 Temperature Temperature Source Pulse Rate 141 H 137 H Respiratory Rate 45 H 41 H Respiratory Effort Labored Accessory Muscle Use Respiratory Depth Deep Respiratory Pattern Blood Pressure Blood Pressure Mean Pulse Ox 98 Oxygen Delivery Method Bi-pap Fraction of Inspired Oxygen (FIO2) 80 08/01/21 18:20 08/01/21 18:41 08/01/21 18:58 Temperature 97.2 F L Temperature Source Temporal Pulse Rate 141 H 131 H 120 H Respiratory Rate 41 H 34 H 29 H Respiratory Effort Respiratory Depth Respiratory Pattern Hyperpnea Tachypnea Blood Pressure 113/70 Blood Pressure Mean 84 Pulse Ox 96 95 Oxygen Delivery Method Bi-pap Fraction of Inspired Oxygen (FIO2) 50 08/01/21 19:26 08/01/21 20:07 08/01/21 20:58 Temperature 97.2 F L Temperature Source Temporal Pulse Rate 118 H 116 H 106 H Respiratory Rate 25 H 30 H 24 H Respiratory Effort Respiratory Depth Respiratory Pattern Blood Pressure 110/62 105/61 109/62 Blood Pressure Mean 78 75 77 Pulse Ox 97 96 97 Oxygen Delivery Method Bi-pap Bi-pap Bi-pap Fraction of Inspired Oxygen (FIO2) 60 08/01/21 21:40 Temperature Temperature Source Pulse Rate 106 H Respiratory Rate 26 H Respiratory Effort Respiratory Depth Respiratory Pattern Blood Pressure 106/63 Blood Pressure Mean 77 Pulse Ox 98 Oxygen Delivery Method Bi-pap Fraction of Inspired Oxygen (FIO2) Positive well nourished, well developed and obese General Appearance ED: well developed Nutritional Appearance: obese HEENT Reports normocephalic, head/scalp atraumatic, TM's clear and moist mucous membranes atraumatic Tympanic Membrane ED: Yes TM's clear Eyes PERRL and EOMs intact bilaterally Neck no lymphadenopathy, supple and no JVD Resp Resp Narrative: Patient presents in respiratory distress. Auscultation: rhonchi and diminished lung sounds Cardio regular rhythm and no murmurs Rate: tachycardic GI normal to inspection, nondistended, normoactive bowel sounds and non-tender Auscultation: normoactive bowel sounds Palpation: soft Back/Spine no CVA tenderness and normal ROM Extremity normal to inspection General Extremety ED: Negative for edema General Extremity: Negative for edema Neuro CN's II-XII intact bilaterally Sensorium / Orientation: alert Motor Exam: strength 5/5 throughout Psych mental status grossly normal Mood & Affect: Negative for depressed or tearful Skin no rashes or lesions noted and no wounds MDM MDM MDM Narrative Medical decision making narrative: My interpretation of her chest x-ray is bilateral consolidations particularly worse on the left. White count is 15.5. Lactic acid 2.2. Creatinine 1.23. Beta natruretic peptide is 1059. Patient was placed on BiPAP and received DuoNeb and albuterol. Based on the chest x-ray Rocephin and azithromycin were given. Rapid Covid was negative and Covid PCR was ordered. A CTA of the chest was obtained which demonstrates significant consolidation in the left lung field but also with consolidation in the right midlung. Blood cultures have been obtained. Due to the patient's low ejection fraction and her beta natruretic peptide I do not think that aggressive fluid hydration is warranted. The lactic acid is most likely due to the severe work of breathing and her hypoxemia. Lab Data Attestation: I reviewed the patient's lab results. Labs: Laboratory Results - last 24 hr 08/01/21 08/01/21 08/01/21 17:56 17:56 17:56 WBC 15.5 H RBC 4.09 L Hgb 13.0 Hct 38.7 MCV 94.6 MCH 31.8 MCHC 33.6 RDW Std Deviation 48.4 H RDW Coeff of Tanya 13.9 Plt Count 394 MPV 9.9 Immature Gran % (Auto) 0.500 Neut % (Auto) 71.8 H Lymph % (Auto) 21.1 Lincoln % (Auto) 6.3 Eos % (Auto) 0.0 Baso % (Auto) 0.3 Absolute Neuts (auto) 11.1 H Absolute Lymphs (auto) 3.27 Nucleated RBC % 0 Sodium 133 L Potassium 4.3 Chloride 101 Carbon Dioxide 23.0 Anion Gap 9 BUN 18 Creatinine 1.23 H Estim Creat Clear Calc 30.78 Est GFR (MDRD) Af Amer 55 L Est GFR (MDRD) Non-Af 45 L BUN/Creatinine Ratio 14.6 Glucose 294 H Lactic Acid 2.2 H* Calcium 8.8 Total Bilirubin 0.40 AST 47 H ALT 43 Alkaline Phosphatase 76 Troponin I High Sens 24 B-Natriuretic Peptide Total Protein 7.2 Albumin 3.2 Globulin 4.0 Albumin/Globulin Ratio 0.8 L COVID-19 (SAMANTHA) 08/01/21 08/01/21 17:56 18:55 WBC RBC Hgb Hct MCV MCH MCHC RDW Std Deviation RDW Coeff of Tanya Plt Count MPV Immature Gran % (Auto) Neut % (Auto) Lymph % (Auto) Lincoln % (Auto) Eos % (Auto) Baso % (Auto) Absolute Neuts (auto) Absolute Lymphs (auto) Nucleated RBC % Sodium Potassium Chloride Carbon Dioxide Anion Gap BUN Creatinine Estim Creat Clear Calc Est GFR (MDRD) Af Amer Est GFR (MDRD) Non-Af BUN/Creatinine Ratio Glucose Lactic Acid Calcium Total Bilirubin AST ALT Alkaline Phosphatase Troponin I High Sens B-Natriuretic Peptide 1059.4 H Total Protein Albumin Globulin Albumin/Globulin Ratio COVID-19 (SAMANTHA) Not Detected Radiography Diagnostic Testing: Clinical Impression(s) from Imaging Studies Chest X-Ray 08/01/21 18:15 IMPRESSION: 1. Moderate irregular consolidation is present in the bilateral mid to lower lung phelan. Electronically Signed: Adan Rojo MD at 18:39 EST , Service support , Chest CTA 08/01/21 18:46 IMPRESSION: 1. Multifocal pneumonia - There is severe consolidation throughout the left lower lobe. Moderate consolidation is present in the posterior inferior aspect of the left upper lobe. Mild consolidation is seen in the right middle and lower lobes. The right upper lobe is clear. 2. No demonstrated pulmonary embolism or arterial dissection. Electronically Signed: Adan Rojo MD at 21:23 EST , Service support , EKG Initial EKG: Attestation: I personally reviewed and interpreted this EKG as follows: Comments: Sinus tachycardia with a ventricular rate of 143 bpm. Noted left bundle branch block. Critical Care Time Critical Care Time: Yes Critical care time (excluding procedures): 30-74 minutes (32 min), Including time spent:, Discussing w/Patient &/or Family/Customer Service Officer, Discussing w/Consultants, Arranging Admission or Transfer and Performing Direct Patient Care at Bedside Discharge Plan Dx/Rx/DC Orders Clinical Impression: Bilateral pneumonia, Acute hypoxemic respiratory failure, Sepsis, Acute respiratory distress Disposition Disposition: Acute Care [facility]
--- NOTE | 2021-08-01 21:53 | HP.PCM.HOS_ITS ---
HPI - General General Date of Admission: 08/01/21 HPI Narrative ETTA VEGA, is a 76 F with a significant history of heart failure with reduced ejection fraction (about 20% ejection fraction) who presents to the emergency department with progressively worsening shortness of breath that started 2 days () before presentation. Associated with her symptoms is cough initially productive but not dry. Val she reports a poor appetite, fatigue and weakness. She saw her provider a day before presentation. Reportedly she was given some medicine for cough. She reports multiple loose stools (3 loose on the day of presentation) that he attributes to some medicine prescribed to control cough. Before presentation her oxygen saturation was in the 70s. She was placed on nonrebreather mask by paramedics. On arrival on nonrebreather mask he also saturation was 80%. Patient was placed on BiPAP at the emergency department. [facility] Medical History Abnormal electrocardiogram Acute exacerbation of CHF (congestive heart failure) Acute respiratory failure with hypoxia Chronic systolic (congestive) heart failure Essential hypertension LBBB (left bundle branch block) Non-rheumatic mitral regurgitation Nonischemic cardiomyopathy Home Medications labetalol 100 mg PO BID #60 tab 10/24/19 [Rx Last Taken Unknown] lisinopril 10 mg tablet 10 mg PO DAILY #90 tab 04/15/21 [Rx Last Taken Unknown] furosemide 40 mg tablet 40 mg PO DAILY #90 tab 06/04/21 [Rx Last Taken Unknown] potassium chloride 20 mEq tablet,extended release(part/cryst) 20 meq PO DAILY #90 tablet 06/04/21 [Rx Last Taken Unknown] Allergy/AdvReac Type Severity Reaction Status Date / Time torsemide AdvReac Unknown Unknown Verified 02/29/20 13:46 Family History Mother Myocardial infarction, Onset Age: 56 Father Myocardial infarction, Onset Age: 81 Other Heart disease Surgical History History of appendectomy History of cholecystectomy History of knee replacement procedure of left knee History of left heart catheterization (LHC) (~10/23/19) Social History Smoking Status: Never smoker alcohol intake: never substance use type: does not use ROS ROS Narrative Constitutional: Reports fatigue and weakness. Reports anorexia. Denies fever, chills, and change in weight Eyes: Denies blurry vision, change in eye color, change in vision, discharge from eye(s), double vision, erythema, eye pain, loss of vision or other HEENT: Denies abnormal hearing, dysphagia, ear pain, epistaxis, headache(s), hearing loss, nasal congestion, nasal discharge, post nasal drip, sinus pressure, sore throat or other Cardiovascular: Denies chest pain or palpitations. Respiratory/Chest: Reports shortness of breath. Reports coughing. Gastrointestinal: Reports diarrhea. Denies abdominal pain, coffee ground emesis, constipation, dyspepsia, hematemesis, hematochezia, melena, nausea, vomiting or other Genitourinary: Denies burning urination, difficulty urinating, dysuria, hematuria, nocturia, urinary frequency, urinary hesitancy, urinary incontinence, urinary urgency or other Musculoskeletal: Denies arthralgias, back pain, joint pain, joint stiffness, joint swelling, myalgias, neck pain or other Neurologic: Denies abnormal gait, abnormal speech, confusion, disequilibrium, dizziness, focal weakness, headache(s), numbness, paresthesias, seizure-like activity, seizures, syncope, tingling, tremor(s) or other Psychiatric: Denies anxiety, depression, homicidal ideation, suicidal ideation or other Endocrinology: Denies change in body appearance, cold intolerance, excessive sweating, heat intolerance, polydipsia, polyuria or other Hematologic/Lymphatic: Denies anemia, easy bleeding, easy bruising, lymphadenopathy or other Integumentary: Denies rashes Allergic/Immunologic: Denies rhinitis, hives, eczema, asthma or other Vital Signs Vital Signs Vital Signs: 08/01/21 17:49 08/01/21 17:50 08/01/21 17:56 Temperature 98.1 F 97.0 F L Temperature Source Temporal Temporal Pulse Rate 151 H 141 H 144 H Respiratory Rate 28 H 41 H 44 H Respiratory Effort Respiratory Depth Respiratory Pattern Blood Pressure 149/114 H 142/86 H Blood Pressure Mean 125 104 Pulse Ox 100 100 100 Oxygen Delivery Method Bi-pap Bi-pap Fraction of Inspired Oxygen (FIO2) 100 08/01/21 18:02 08/01/21 18:04 08/01/21 18:18 Temperature Temperature Source Pulse Rate 141 H 137 H Respiratory Rate 45 H 41 H Respiratory Effort Labored Accessory Muscle Use Respiratory Depth Deep Respiratory Pattern Blood Pressure Blood Pressure Mean Pulse Ox 98 Oxygen Delivery Method Bi-pap Fraction of Inspired Oxygen (FIO2) 80 08/01/21 18:20 08/01/21 18:41 08/01/21 18:58 Temperature 97.2 F L Temperature Source Temporal Pulse Rate 141 H 131 H 120 H Respiratory Rate 41 H 34 H 29 H Respiratory Effort Respiratory Depth Respiratory Pattern Hyperpnea Tachypnea Blood Pressure 113/70 Blood Pressure Mean 84 Pulse Ox 96 95 Oxygen Delivery Method Bi-pap Fraction of Inspired Oxygen (FIO2) 50 08/01/21 19:26 08/01/21 20:07 08/01/21 20:58 Temperature 97.2 F L Temperature Source Temporal Pulse Rate 118 H 116 H 106 H Respiratory Rate 25 H 30 H 24 H Respiratory Effort Respiratory Depth Respiratory Pattern Blood Pressure 110/62 105/61 109/62 Blood Pressure Mean 78 75 77 Pulse Ox 97 96 97 Oxygen Delivery Method Bi-pap Bi-pap Bi-pap Fraction of Inspired Oxygen (FIO2) 60 08/01/21 21:40 08/01/21 21:43 Temperature 97.0 F L Temperature Source Temporal Pulse Rate 106 H 103 H Respiratory Rate 26 H 29 H Respiratory Effort Respiratory Depth Respiratory Pattern Blood Pressure 106/63 106/63 Blood Pressure Mean 77 77 Pulse Ox 98 98 Oxygen Delivery Method Bi-pap Bi-pap Fraction of Inspired Oxygen (FIO2) Weight Weight: 84.5 kg Body Mass Index (BMI) 34.0 Physical Exam Narrative Physical exam: General: Well-nourished, well-developed. Head: Normocephalic, atraumatic, no tenderness Eyes: PERRLA, EOMI ENT, no trauma, moist mucous membranes, no rhinorrhea Neck: Nontender, full range of motion, no spinal tenderness, deformities, step- off CVS: Tachycardia. S1-S2 present. No murmur, gallop or rub. Respiratory : Respiratory distress on BiPAP. Tachypnea. Rales. Chest wall nontender, no wheezing Abdomen: Soft, nontender, nondistended, normal bowel sounds, no masses : Deferred Back: Nontender, no CVA tenderness, no midline spinal tenderness, deformities, step-offs Extremities: Nontender full range of motion, no trauma Skin: Normal color, no trauma, abrasions Neuro: Alert, oriented, cranial nerves II through XII grossly intact. Psychiatry: Normal mood. Normal affect. Not depressed. Not anxious. Results Lab / Micro Data Result Diagrams: 08/02/21 01:20 08/02/21 01:20 Labs: Laboratory Results - last 24 hr 08/01/21 17:56: WBC 15.5 H, RBC 4.09 L, Hgb 13.0, Hct 38.7, MCV 94.6, MCH 31.8, MCHC 33.6, RDW Std Deviation 48.4 H, RDW Coeff of Tanya 13.9, Plt Count 394, MPV 9.9, Immature Gran % (Auto) 0.500, Neut % (Auto) 71.8 H, Lymph % (Auto) 21.1, M rashaun % (Auto) 6.3, Eos % (Auto) 0.0, Baso % (Auto) 0.3, Absolute Neuts (auto) 11.1 H, Absolute Lymphs (auto) 3.27, Nucleated RBC % 0 08/01/21 17:56: Sodium 133 L, Potassium 4.3, Chloride 101, Carbon Dioxide 23.0, Anion Gap 9, BUN 18, Creatinine 1.23 H, Estim Creat Clear Calc 30.78, Est GFR (MDRD) Af Amer 55 L, Est GFR (MDRD) Non-Af 45 L, BUN/Creatinine Ratio 14.6, Glucose 294 H, Calcium 8.8, Total Bilirubin 0.40, AST 47 H, ALT 43, Alkaline Phosphatase 76, Troponin I High Sens 24, Total Protein 7.2, Albumin 3.2, Globulin 4.0, Albumin/Globulin Ratio 0.8 L 08/01/21 17:56: Lactic Acid 2.2 H* 08/01/21 17:56: B-Natriuretic Peptide 1059.4 H 08/01/21 18:55: COVID-19 (SAMANTHA) Not Detected Micro: Microbiology 08/01/21 18:09 Mucosa - Nasopharyngeal Influenza Types A,B Direct FA (CECY) - Final 08/01/21 18:09 Nasal Secretion SARS-CoV-2 Antigen (Rapid) - Final Radiology Impression Chest X-Ray 08/01/21 18:15 IMPRESSION: 1. Moderate irregular consolidation is present in the bilateral mid to lower lung phelan. Electronically Signed: Adan Rojo MD at 18:39 EST , Service support , Chest CTA 08/01/21 18:46 IMPRESSION: 1. Multifocal pneumonia - There is severe consolidation throughout the left lower lobe. Moderate consolidation is present in the posterior inferior aspect of the left upper lobe. Mild consolidation is seen in the right middle and lower lobes. The right upper lobe is clear. 2. No demonstrated pulmonary embolism or arterial dissection. Electronically Signed: Adan Rojo MD at 21:23 EST , Service support , Assessment & Plan Assessment/Plan (1) Bilateral pneumonia: QUALIFIERS: Lung location: unspecified part of lung Pneumonia type: due to unspecified organism Qualified Code(s): J18.9 - Pneumonia, unspecified organism (2) Acute hypoxemic respiratory failure: (3) Sepsis: QUALIFIERS: Acute respiratory failure type: with hypoxia Sepsis acute organ dysfunction status: with acute organ dysfunction Sepsis type: sepsis due to unspecified organism Severe sepsis acute organ dysfunction type: acute respiratory failure Severe sepsis shock status: without septic shock Qualified Code(s): A41.9 - Sepsis, unspecified organism; R65.20 - Severe sepsis without septic shock; J96.01 - Acute respiratory failure with hypoxia (4) Acute respiratory distress: PLAN: Acute hypoxemic respiratory failure secondary to bilateral pneumonia. Patient meet SIRS criteria with heart rate of more than 90; pain with respirat ory rate of more than 20. White count was 15.5. Lactic acid of 2.2. Endorgan damage with acute respiratory failure. qSOFA of 1 respiratory respiratory rate (more or equal to 22). Sepsis ruled out. Blood culture ?2 is pending Chest x-ray and chest CTA with multifocal infiltrates. Respiratory Gram stain and culture pending Antibiotics: Given ceftriaxone and azithromycin emergency department. Va ncomycin, Zosyn and azithromycin ordered for inpatient. De-escalate as necessary. Albuterol as needed Legionella antigen screen and Strep antigen ordered Given ceftriaxone and azithromycin at the emergency department. Vancomycin and Zosyn/azithromycin ordered inpatient. De-escalate as necessary. Trend CBC and BMP. Admit to intensive care unit and consult cco & president. Heart failure with reduced ejection fraction Review of old records shows that echocardiogram on 10/22/2019 had an ejection fr action of 15%. Right ventricle systolic pressure was 26 mmHg. Moderate mitral valve insufficiency. Mild focal aortic valve calcification. Stable. Likely current symptoms from pneumonia. Guideline medication drugs of lisinopril continued. Patient on home labetalol continued. Furosemide continu ed. Potassium continued. Trend blood pressure and adjust guideline medications as necessary. DVT prophylaxis Subcutaneous heparin ordered. Charges/Coding Visit Charges Inpatient E&M: 88241 Init Hosp L3
--- NOTE | 2021-08-01 21:59 | ED.RN ---
Report given to IDRIS Taylor on ICU.
[2021-08-01 22:07] LABS: Reflex Lactate? Y
[2021-08-01] MEDS: Heparin Injection (Vial) 5,000 UNIT/ML VIAL 5000 UNIT SC (23:56)
[2021-08-02] VITALS (28 sets, daily range): BP systolic 79–118; BP diastolic 44–82; PULSE 67–113; RESP 12–64; TEMP 36.4–37.2; O2SAT 91–99
--- NOTE | 2021-08-02 01:03 | PCM.RX.CS ---
Consult Type of Consult: New start Suspected Infection: Sepsis, Pneumonia Prior Doses of Antibiotics Received/Current Regimen: Medications Vancomycin HCl 1,250 mg/ (Sodium Chloride) 275 mls @ 167 mls/hr IV X1 ONE Stop: 08/02/21 01:08 Last Admin: 08/01/21 23:40 Dose: 167 mls/hr Vancomycin HCl 1,250 mg/ (Sodium Chloride) 275 mls @ 167 mls/hr IV Q24H EMILIE Labs: Sodium 133 mmol/L (136-145) L 08/01/21 17:56 Potassium 4.3 mmol/L (3.5-5.1) 08/01/21 17:56 Chloride 101 mmol/L (98-107) 08/01/21 17:56 Carbon Dioxide 23.0 mmol/L (21.0-32.0) 08/01/21 17:56 Anion Gap 9 (5-15) 08/01/21 17:56 BUN 18 mg/dL (7-18) 08/01/21 17:56 Creatinine 1.23 mg/dL (0.55-1.02) H 08/01/21 17:56 Est GFR (MDRD) Af Amer 55 mL/min (>60) L 08/01/21 17:56 Est GFR (MDRD) Non-Af 45 mL/min (>60) L 08/01/21 17:56 BUN/Creatinine Ratio 14.6 RATIO (10-20) 08/01/21 17:56 Glucose 294 mg/dL (74-106) H 08/01/21 17:56 Microbiology: Microbiology 08/01/21 18:09 Mucosa - Nasopharyngeal Influenza Types A,B Direct FA (CECY) - Final 08/01/21 18:09 Nasal Secretion SARS-CoV-2 Antigen (Rapid) - Final Weight used for dosin.3 kg Estimated Creatinine Clearance: 30.8 Goal Trough: 15-20 mcg/mL Pharmacy Plan for Drug Dosing: Pharmacy Service will continue to monitor and adjust dosing as required. Follow-Up Labs: Trough Vancomycin Labs to be done on [date and time ordered]: 08/03/21 @2300
[2021-08-02 02:07] LABS: Anion Gap 8 (5-15); BUN 15 mg/dL (7-18); BUN/Creat Ratio 18.2 RATIO (10-20); Calcium,Total 8.7 mg/dL (8.5-10.1); Chloride 105 mmol/L (98-107); Creatinine, Serum 0.83 mg/dL (0.55-1.02); EST Glomerular Filtration Rate 71 mL/min (>60); Est Glom Filt Rate - Afr Amer 86 mL/min (>60); Estimated Creatinine Clearance 43.51 ml/min; Glucose 162 mg/dL (74-106); Potassium 3.7 mmol/L (3.5-5.1); Sodium Level 136 mmol/L (136-145)
[2021-08-02 02:11] LABS: Absolute Lymphocyte Count 0.71 X10^3/uL (0.83-4.51); Absolute Neutrophil Count 8.7 X10^3/uL (2.0-7.7); Basophil# 0.01 X10^3/uL; Basophil% 0.1 % (0-1); Hematocrit 35.2 % (37-47); Hemoglobin 11.7 g/dL (12.0-15.0); Lymphocyte # 0.71 X10^3/ul (0.83-4.51); Lymphocyte % 7.3 % (19-41); Mean Corp Hgb Conc 33.2 g/dL (32-36); Mean Corpuscular Hgb 31.1 pg (27.0-32.0); Mean Corpuscular Volume 93.6 fL (81-99); Mean Platelet Vol. 9.9 fl (6.2-12.0); Monocyte# 0.31 X10^3/uL; Monocyte% 3.2 % (0-10); NRBC Flagged by Analyzer 0 % (0-5); Neutrophil # 8.66 X10^3/uL (2.7-7.7); Platelet Count 273 K/mm3 (150-450); RBC Distribution Width SD 48.4 fl (35.1-43.9); Red Blood Count 3.76 M/mm3 (4.2-5.4); White Blood Count 9.7 K/mm3 (4.4-11.0)
--- NOTE | 2021-08-02 07:47 | EX.PCM.CONCC ---
Assessment & Plan Assessment/Plan (1) Acute hypoxemic respiratory failure: (2) Bilateral pneumonia: QUALIFIERS: Pneumonia type: due to unspecified organism Lung location: unspecified part of lung Qualified Code(s): J18.9 - Pneumonia, unspecified organism (3) Acute exacerbation of CHF (congestive heart failure): QUALIFIERS: Heart failure type: unspecified Qualified Code(s): I50.9 - Heart failure, unspecified (4) Nonischemic cardiomyopathy: (5) Sepsis: QUALIFIERS: Sepsis type: sepsis due to unspecified organism Sepsis acute organ dysfunction status: with acute organ dysfunction Severe sepsis acute organ dysfunction type: acute respiratory failure Acute respiratory failure type: with hypoxia Severe sepsis shock status: without septic shock Qualified Code(s): A41.9 - Sepsis, unspecified organism; R65.20 - Severe sepsis without septic shock; J96.01 - Acute respiratory failure with hypoxia PLAN: RECOMMENDATIONS: 1. Continue empiric antibiotics 2. BiPAP breaks during the day 3. Diuresis as tolerated 4. Walking oximetry prior to discharge 5. Potentially transfer from the intensive care unit later today IMPRESSIONS: 1. Acute hypoxic respiratory failure secondary to community-acquired pneumonia and possible CHF Clinical suspicion for multifactorial etiology. Patient with significant recovery over the last 24 hours following diuresis and BiPAP rescue. This would be suggestive of acute systolic congestive heart failure as a component of presentation. However, dense consolidation with left greater than right is also suggestive of a bacterial pneumonia. Patient has been placed on empiric antibiotics. Okay to use albuterol as needed, but likely no indication for steroids as patient does not have obstructive lung disease. Patient will need a walking oximetry prior to discharge. 2. Acute on chronic systolic CHF Patient with an echocardiogram in October 2019 showing an EF of 15% with relatively preserved right ventricular systolic pressures. Clinical suspicion for an element of overload secondary to hypoxic and increased afterload in the setting of decreased ejection fraction. Patient has been given diuresis with good response. Continue to replace potassium as indicated. 3. Advanced age/unvaccinated status/hypertension Complicates care, management, recovery and prognosis. Patient does not appear to be on aspirin or a statin at baseline. These would be recommended for CHF with latest guidelines. This can be addressed prior to discharge. Okay to continue with baseline antihypertensives from my perspective. HPI Consult Data Date of Consult: 08/02/21 HPI Narrative HPI Narrative: ETTA VEGA is a 76 F, with past medical history listed below, who presents to [facility] 08/01/2021 secondary to progressive shortness of breath. Patient reportedly has a history of multiple episodes of bronchitis and congestive heart failure with last known ejection fraction of 20%. Patient had been seen by a physician earlier in the week and was given a dose of Decadron, but was having significant shortness of breath. Patient ultimately noted to be 80% on room air. EMS was called. Patient is not vaccinated against COVID-19. Patient did report a cough productive of yellow to green sputum. Patient is on diuretics at baseline, but no inhalers. In the ER, patient was afebrile, but tachycardic at 151 bpm. Patient was placed on BiPAP by EMS, but remained tachypneic with 45 breaths/min at 1 point. Patient progressively improved on BiPAP therapy throughout the ER course. Laboratory data showed a white blood cell count of 15.5, hemoglobin of 13 and creatinine of 1.23. Lactate was elevated at 2.2 and glucose was elevated at 294. Liver function studies were within normal limits. BNP was elevated at almost 1100. COVID-19 testing was negative. Chest x-ray showed irregular consolidation bilaterally and a CTA showed no PE, but significant left lower lobe consolidation. EKG showed sinus tachycardia. Given patient's need for BiPAP rescue, patient was admitted to the intensive care unit for further evaluation. Since being the intensive care unit, patient feels subjectively significantly improved compared to previous. This morning, patient was able to be transitioned to nasal cannula and appears to be tolerating this well. No hemodynamic instability was noted. Patient does continue to have a productive cough, but no hemoptysis was reported. Patient denies any pulmonary history. Patient has never seen a early childhood specialist or had pulmonary function tests previously. Patient has never required an inhaler. Patient had noted some increased lower extremity edema, but did not feel that this was profound compared to her baseline. Patient reports she has been compliant with her Lasix therapy. Patient denies any smoking, alcohol or drug history. No history of TB or asbestos reported. Review of systems otherwise negative from a constitutional, HEENT, respiratory, cardiovascular, GI, genitourinary, musculoskeletal, skin, neurologic, psychiatric and hematologic system unless stated above. [facility] Medical History Abnormal electrocardiogram Acute exacerbation of CHF (congestive heart failure) Acute respiratory failure with hypoxia Chronic systolic (congestive) heart failure Essential hypertension LBBB (left bundle branch block) Non-rheumatic mitral regurgitation Nonischemic cardiomyopathy Home Medications labetalol 100 mg PO BID #60 tab 10/24/19 [Rx Last Taken Unknown] lisinopril 10 mg tablet 10 mg PO DAILY #90 tab 04/15/21 [Rx Last Taken Unknown] furosemide 40 mg tablet 40 mg PO DAILY #90 tab 06/04/21 [Rx Last Taken Unknown] potassium chloride 20 mEq tablet,extended release(part/cryst) 20 meq PO DAILY #90 tablet 06/04/21 [Rx Last Taken Unknown] Allergy/AdvReac Type Severity Reaction Status Date / Time torsemide AdvReac Unknown Unknown Verified 02/29/20 13:46 Family History Mother Myocardial infarction, Onset Age: 56 Father Myocardial infarction, Onset Age: 81 Other Heart disease Surgical History History of appendectomy History of cholecystectomy History of knee replacement procedure of left knee History of left heart catheterization (LHC) (~10/23/19) Social History Smoking Status: Never smoker alcohol intake: never substance use type: does not use ROS ROS Narrative See HPI Physical Exam Const alert and oriented x3 Constitutional Narrative: No conversational dyspnea General Appearance: cooperative Nutritional Appearance: obese HEENT normocephalic, head/scalp atraumatic and moist oral mucous membranes Eyes PERRL, EOMs intact bilaterally and conjunctivae normal Neck full ROM Lymph Lymphatic: lymphadenopathy Lymphadenopathy Laterality: bilateral (Cervical) Positive for multiple Resp normal respiratory effort and no use of accessory muscles Auscultation: rhonchi left lower; Negative for rales or wheezes Cardio regular rate, regular rhythm, S1 normal heart sound, S2 normal heart sound, no murmurs, no rub and no gallops GI normal to inspection, nondistended, normoactive bowel sounds Extremity General Extremity: no tenderness to palpation of joints or extremities; Negative for clubbing, cyanosis or edema Skin no rashes or lesions noted Neuro oriented x3 and CN's II-XII intact bilaterally Psych cooperative and affect normal Appearance: well kempt Lab / Micro Data Result Diagrams: 08/02/21 01:20 08/02/21 01:20 Labs: Laboratory Results - last 24 hr 08/01/21 17:56: WBC 15.5 H, RBC 4.09 L, Hgb 13.0, Hct 38.7, MCV 94.6, MCH 31.8, MCHC 33.6, RDW Std Deviation 48.4 H, RDW Coeff of Tanya 13.9, Plt Count 394, MPV 9.9, Immature Gran % (Auto) 0.500, Neut % (Auto) 71.8 H, Lymph % (Auto) 21.1, [place] % (Auto) 6.3, Eos % (Auto) 0.0, Baso % (Auto) 0.3, Absolute Neuts (auto) 11.1 H, Absolute Lymphs (auto) 3.27, Nucleated RBC % 0 08/01/21 17:56: Sodium 133 L, Potassium 4.3, Chloride 101, Carbon Dioxide 23.0, Anion Gap 9, BUN 18, Creatinine 1.23 H, Estim Creat Clear Calc 30.78, Est GFR (MDRD) Af Amer 55 L, Est GFR (MDRD) Non-Af 45 L, BUN/Creatinine Ratio 14.6, Glucose 294 H, Calcium 8.8, Total Bilirubin 0.40, AST 47 H, ALT 43, Alkaline Phosphatase 76, Troponin I High Sens 24, Total Protein 7.2, Albumin 3.2, Globulin 4.0, Albumin/Globulin Ratio 0.8 L 08/01/21 17:56: Lactic Acid 2.2 H* 08/01/21 17:56: B-Natriuretic Peptide 1059.4 H 08/01/21 18:55: COVID-19 (SAMANTHA) Not Detected 08/02/21 01:20: Lactic Acid 1.0 08/02/21 01:20: WBC 9.7, RBC 3.76 L, Hgb 11.7 L, Hct 35.2 L, MCV 93.6, MCH 31.1, MCHC 33.2, RDW Std Deviation 48.4 H, RDW Coeff of Tanya 14.0, Plt Count 273, MPV 9.9, Immature Gran % (Auto) 0.400, Neut % (Auto) 89.0 H, Lymph % (Auto) 7.3 L, [place] % (Auto) 3.2, Eos % (Auto) 0.0, Baso % (Auto) 0.1, Absolute Neuts (auto) 8.7 H, Absolute Lymphs (auto) 0.71 L, Nucleated RBC % 0 08/02/21 01:20: Sodium 136, Potassium 3.7, Chloride 105, Carbon Dioxide 23.0, Anion Gap 8, BUN 15, Creatinine 0.83, Estim Creat Clear Calc 43.51, Est GFR (MDRD) Af Amer 86, Est GFR (MDRD) Non-Af 71, BUN/Creatinine Ratio 18.2, Glucose 162 H, Calcium 8.7 Micro: Microbiology 08/02/21 01:20 Urine, Clean Catch Legionella Antigen - Final 08/02/21 01:20 Urine, Clean Catch Streptococcus pneumoniae Antigen (M - Final 08/01/21 18:09 Mucosa - Nasopharyngeal Influenza Types A,B Direct FA (CECY) - Final 08/01/21 18:09 Nasal Secretion SARS-CoV-2 Antigen (Rapid) - Final Radiology Impression Chest X-Ray 08/01/21 18:15 IMPRESSION: 1. Moderate irregular consolidation is present in the bilateral mid to lower lung phelan. Electronically Signed: Adan Rojo MD at 18:39 EST , Service support , Chest CTA 08/01/21 18:46 IMPRESSION: 1. Multifocal pneumonia - There is severe consolidation throughout the left lower lobe. Moderate consolidation is present in the posterior inferior aspect of the left upper lobe. Mild consolidation is seen in the right middle and lower lobes. The right upper lobe is clear. 2. No demonstrated pulmonary embolism or arterial dissection. Electronically Signed: Adan Rojo MD at 21:23 EST , Service support , Charges/Coding Visit Charges Inpatient E&M: 08902 Init Hosp L3
[2021-08-02] MEDS: guaiFENesin 1,200 MG Tablet 1200 MG PO ×2 (10:05→21:35)
[2021-08-02] MEDS: Potassium Chloride Oral Tablet 20 MEQ PO (10:05)
[2021-08-02] MEDS: Heparin Injection (Vial) 5,000 UNIT/ML VIAL 5000 UNIT SC ×2 (10:05→21:35)
[2021-08-02] MEDS: Lisinopril 10 MG Tablet PO (10:05)
[2021-08-02] MEDS: Furosemide 40 MG/4 ML Vial IV (10:05)
[2021-08-02] MEDS: Labetalol 100 MG Tablet PO ×2 (10:05→21:36)
[2021-08-02 14:09] LABS: Magnesium 2.3 mg/dL (1.6-2.6)
--- NOTE | 2021-08-02 16:05 | PN.HOSP_ITS ---
Subjective Subjective Patient states she is feeling much better today and breathing much more easily. She states she has had no significant fevers at home but has had a cough, although it is documented that her spouse states that she had been febrile. She has had some phlegm production but thus far has been nonproductive here. She nguyen s been able to be weaned to 2 L nasal cannula and his oxygen saturations at 94%. Objective Data Objective Data Vital Signs: Vital Signs Temp Pulse Resp BP Pulse Ox 98.5 F 110 H 24 H 94/82 H 94 08/02/21 13:00 08/02/21 15:21 08/02/21 15:00 08/02/21 15:00 08/02/21 15:00 Oxygen Flow Rate (L/min) 2 Oxygen Delivery Method Nasal Cannula Weight: 79.1 kg Body Mass Index (BMI) 33.4 Intake & Output: Intake and Output for Last 24 Hours 07/31/21 08/01/21 08/02/21 23:59 23:59 23:59 Intake Total 305 / 305 495 / 495 Output Total 1700 / 1700 Balance 305 / 305 -1205 / -1205 Lab / Micro Data Result Diagrams: 08/02/21 01:20 08/02/21 01:20 Labs: Laboratory Results - last 24 hr 08/01/21 17:56: WBC 15.5 H, RBC 4.09 L, Hgb 13.0, Hct 38.7, MCV 94.6, MCH 31.8, MCHC 33.6, RDW Std Deviation 48.4 H, RDW Coeff of Tanya 13.9, Plt Count 394, MPV 9.9, Immature Gran % (Auto) 0.500, Neut % (Auto) 71.8 H, Lymph % (Auto) 21.1, [place] % (Auto) 6.3, Eos % (Auto) 0.0, Baso % (Auto) 0.3, Absolute Neuts (auto) 11.1 H, Absolute Lymphs (auto) 3.27, Nucleated RBC % 0 08/01/21 17:56: Sodium 133 L, Potassium 4.3, Chloride 101, Carbon Dioxide 23.0, Anion Gap 9, BUN 18, Creatinine 1.23 H, Estim Creat Clear Calc 30.78, Est GFR (MDRD) Af Amer 55 L, Est GFR (MDRD) Non-Af 45 L, BUN/Creatinine Ratio 14.6, Glucose 294 H, Calcium 8.8, Total Bilirubin 0.40, AST 47 H, ALT 43, Alkaline Phosphatase 76, Troponin I High Sens 24, Total Protein 7.2, Albumin 3.2, Globulin 4.0, Albumin/Globulin Ratio 0.8 L 08/01/21 17:56: Lactic Acid 2.2 H* 08/01/21 17:56: B-Natriuretic Peptide 1059.4 H 08/01/21 18:55: COVID-19 (SAMANTHA) Not Detected 08/02/21 01:20: Lactic Acid 1.0 08/02/21 01:20: WBC 9.7, RBC 3.76 L, Hgb 11.7 L, Hct 35.2 L, MCV 93.6, MCH 31.1, MCHC 33.2, RDW Std Deviation 48.4 H, RDW Coeff of Tanya 14.0, Plt Count 273, MPV 9.9, Immature Gran % (Auto) 0.400, Neut % (Auto) 89.0 H, Lymph % (Auto) 7.3 L, [place] % (Auto) 3.2, Eos % (Auto) 0.0, Baso % (Auto) 0.1, Absolute Neuts (auto) 8.7 H, Absolute Lymphs (auto) 0.71 L, Nucleated RBC % 0 08/02/21 01:20: Sodium 136, Potassium 3.7, Chloride 105, Carbon Dioxide 23.0, Anion Gap 8, BUN 15, Creatinine 0.83, Estim Creat Clear Calc 43.51, Est GFR (MDRD) Af Amer 86, Est GFR (MDRD) Non-Af 71, BUN/Creatinine Ratio 18.2, Glucose 162 H, Calcium 8.7 08/02/21 01:20: Magnesium 2.3 Micro: Microbiology 08/02/21 01:20 Urine, Clean Catch Legionella Antigen - Final 08/02/21 01:20 Urine, Clean Catch Streptococcus pneumoniae Antigen (M - Final 08/01/21 18:09 Mucosa - Nasopharyngeal Influenza Types A,B Direct FA ([facility]) - Final 08/01/21 18:09 Nasal Secretion SARS-CoV-2 Antigen (Rapid) - Final Radiography Diagnostic Testing: Radiology Impression Chest X-Ray 08/01/21 18:15 IMPRESSION: 1. Moderate irregular consolidation is present in the bilateral mid to lower lung phelan. Electronically Signed: Adan Rojo MD at 18:39 EST , Service support , Chest CTA 08/01/21 18:46 IMPRESSION: 1. Multifocal pneumonia - There is severe consolidation throughout the left lower lobe. Moderate consolidation is present in the posterior inferior aspect of the left upper lobe. Mild consolidation is seen in the right middle and lower lobes. The right upper lobe is clear. 2. No demonstrated pulmonary embolism or arterial dissection. Electronically Signed: Adan Rojo MD at 21:23 EST , Service support , Physical Exam Const alert, oriented x3 and no apparent distress Constitutional Narrative: Obese elderly white female sitting up at the bedside, appears comfortable, nontoxic, on 2 L nasal cannula with no signs of respiratory distress Exam Limitations: no limitations Nutritional Appearance: obese HEENT head/scalp atraumatic and moist oral mucous membranes HEENT Narrative: Mallampati 2, no thrush Head and Scalp: normocephalic Resp normal respiratory effort, no retractions and no use of accessory muscles Resp Narrative: Bibasilar crackles with left base rhonchi and more significant crackles Auscultation: crackles and rhonchi; Negative for rales or wheezes Cardio regular rate, regular rhythm, S1 normal heart sound, S2 normal heart sound, no murmurs, no rub, no gallops, no clicks and no JVD GI normal to inspection, nondistended, normoactive bowel sounds, soft to palpation, non-tender and non-distended Extremity Extremity Narrative: Trace bilateral lower extremity edema with no cyanosis or clubbing Peripheral Pulses: Yes pulses 2+ throughout Neuro oriented x3, moves all extremities and no focal motor deficits Sensorium / Orientation: awake and alert Speech: speech normal Assessment & Plan Assessment/Plan (1) Acute hypoxemic respiratory failure: (2) Bilateral pneumonia: QUALIFIERS: Pneumonia type: due to unspecified organism Lung location: unspecified part of lung Qualified Code(s): J18.9 - Pneumonia, unspecified organism (3) Sepsis: QUALIFIERS: Sepsis type: sepsis due to unspecified organism Sepsis acute organ dysfunction status: with acute organ dysfunction Severe sepsis acute organ dysfunction type: acute respiratory failure Acute respiratory failure type: with hypoxia Severe sepsis shock status: without septic shock Qualified Code(s): A41.9 - Sepsis, unspecified organism; R65.20 - Severe sepsis without septic shock; J96.01 - Acute respiratory failure with hypoxia (4) Acute exacerbation of CHF (congestive heart failure): QUALIFIERS: Heart failure type: unspecified Qualified Code(s): I50.9 - Heart failure, unspecified PLAN: Acute hypoxic respiratory failure secondary to CAP and decompensated acute systolic heart failure -Patient did well with rescue BiPAP and diuresis suggesting that this is not simply her pneumonia causing her respiratory failure -Patient is now stable on 2 L nasal cannula -BNP was markedly elevated on admission -Continue IV diuresis -Continue broad-spectrum antibiotics -Cultures are pending -Add I-S/Pep therapy -Add chest vest -CT done shows marked bilateral consolidation with the left lower lobe being greater than the right -Strep pneumo and Legionella antigens are negative -Influenza negative -Sputum culture ordered but patient has not been able yet to produce -Pulmonary is following -We will transfer to telemetry Sepsis secondary to bilateral pneumonia -Continue IV antibiotics -Await cultures -See above -Leukocytosis has resolved Lactic acidosis -Resolved Acute decompensated on chronic systolic heart failure secondary to nonischemic cardiomyopathy -Patient with known EF of 15% -Repeat echocardiogram tomorrow as last echo was 2020 -Continue IV diuresis -Monitor lab -Consult palliative care/hospice -Continue goal-directed therapy with regards to her heart failure -Patient was referred for BiV ICD but patient did not wish to proceed with referral and therefore does not have ICD in place Nonsustained VT -Patient is high risk with low ejection fraction -Patient deferred on placement of ICD -Continue beta-leah -Monitor on telemetry -Does have chronic left bundle branch block Hypertension -Continue home medication -Labetalol 100 mg twice daily -Lisinopril 10 mg daily Obesity -Complicates overall treatment, prognosis, and outcomes DVT prophylaxis -Continue heparin 5000 units twice daily CODE STATUS -DNR CCA no intubation Charges/Coding Visit Charges Inpatient E&M: 04996 [facility] Hosp L2
--- NOTE | 2021-08-02 16:16 | ECHOD_ITS ---
Reason For Study: CHF Procedure This was a 2D Doppler, Color Flow transthoracic echocardiogram. Exam performed portable in ICU/CCU. Left Ventricle Normal LV size. The estimated ejection fraction is 15 %. There is severe global hypokinesis of the left ventricle. Right Ventricle Normal RV size. Normal systolic function. Atria Normal left atrium. Normal right atrium. Mitral Valve Normal mitral valve. Tricuspid Valve Normal tricuspid valve. Mild (1+) tricuspid valve insufficiency. Pulmonary artery systolic pressure is 30 mmHg. Pulmonic Valve Normal pulmonic valve. Great Vessels Normal aortic root. The pulmonary artery is normal size. Normal inferior vena cava. Pericardium/Pleural Small pericardial effusion. MMode/2D Measurements & Calculations LVIDd: 5.5 cm IVSd: 0.87 cm Ao root diam: 3.5 cm LVIDs: 4.7 cm LVPWd: 0.85 cm RVDd: 3.4 cm FS: 15.0 % LAV(MOD-bp): 61.8 ml LA A4 area: 20.1 cm2 LA dimension(2D): 4.0 cm LAV(MOD-bp) Indexed: 34.7 ml/m2 LAV(MOD-sp2): 56.1 ml LAV(MOD-sp4): 60.0 ml RA A4 area: 13.7 cm2 Doppler Measurements & Calculations MV E max delonte: 87.5 cm/sec Lat Peak E' [place]onte: 5.2 cm/sec Med Peak E' [place]: 8.6 cm/sec E/E' lat: 16.7 E/E' med: 10.1 MV V2 max: 139.8 cm/sec Ao V2 max: 161.9 cm/sec LV V1 max: 121.1 cm/sec MV max P.8 mmHg Ao max P.5 mmHg LV V1 max P.9 mmHg MV V2 mean: 91.5 cm/sec MV mean P.7 mmHg MV V2 VTI: 28.9 cm TR max delonte: 264.2 cm/sec TR max P.9 mmHg ECHO/Echo Complete Interpretation Summary Normal LV size. There is severe global hypokinesis of the left ventricle. Pulmonary artery systolic pressure is 30 mmHg. Small pericardial effusion. The estimated ejection fraction is 15 %. Compared to previous study, the left ventricular systolic function is the same. . Ordering Physician: Alka Vigil Referring Physician: JUAN CARLOS;VERONICA LOPEZ Performed By: Josie Worrell RDCS, RVT
[2021-08-03] VITALS (18 sets, daily range): BP systolic 100–125; BP diastolic 42–88; PULSE 72–107; RESP 20–28; TEMP 36.1–37; O2SAT 91–99
[2021-08-03 03:41] LABS: Absolute Lymphocyte Count 1.05 X10^3/uL (0.83-4.51); Absolute Neutrophil Count 6.5 X10^3/uL (2.0-7.7); Basophil# 0.03 X10^3/uL; Basophil% 0.4 % (0-1); Eosinophil# 0.01 X10^3/uL; Eosinophils% 0.1 % (0-5); Hematocrit 33.2 % (37-47); Hemoglobin 11.2 g/dL (12.0-15.0); Lymphocyte # 1.05 X10^3/ul (0.83-4.51); Lymphocyte % 12.6 % (19-41); Mean Corp Hgb Conc 33.7 g/dL (32-36); Mean Corpuscular Hgb 31.3 pg (27.0-32.0); Mean Corpuscular Volume 92.7 fL (81-99); Mean Platelet Vol. 9.4 fl (6.2-12.0); Monocyte# 0.72 X10^3/uL; Monocyte% 8.6 % (0-10); NRBC Flagged by Analyzer 0 % (0-5); Neutrophil # 6.49 X10^3/uL (2.7-7.7); Neutrophil % 77.8 % (47-70); Platelet Count 291 K/mm3 (150-450); RBC Distribution Width CV 13.9 % (11.6-14.6); RBC Distribution Width SD 48.3 fl (35.1-43.9); Red Blood Count 3.58 M/mm3 (4.2-5.4); White Blood Count 8.3 K/mm3 (4.4-11.0)
[2021-08-03 04:16] LABS: Anion Gap 8 (5-15); BUN 20 mg/dL (7-18); BUN/Creat Ratio 23.1 RATIO (10-20); Chloride 107 mmol/L (98-107); Creatinine, Serum 0.86 mg/dL (0.55-1.02); EST Glomerular Filtration Rate 68 mL/min (>60); Est Glom Filt Rate - Afr Amer 82 mL/min (>60); Estimated Creatinine Clearance 41.99 ml/min; Glucose 125 mg/dL (74-106); Potassium 3.2 mmol/L (3.5-5.1); Sodium Level 138 mmol/L (136-145)
--- NOTE | 2021-08-03 06:38 | PCM.PN.INT ---
Assessment & Plan Assessment/Plan (1) Acute hypoxemic respiratory failure: (2) Bilateral pneumonia: QUALIFIERS: Pneumonia type: due to unspecified organism Lung location: unspecified part of lung Qualified Code(s): J18.9 - Pneumonia, unspecified organism (3) Acute exacerbation of CHF (congestive heart failure): QUALIFIERS: Heart failure type: unspecified Qualified Code(s): I50.9 - Heart failure, unspecified (4) Nonischemic cardiomyopathy: (5) Sepsis: QUALIFIERS: Sepsis type: sepsis due to unspecified organism Sepsis acute organ dysfunction status: with acute organ dysfunction Severe sepsis acute organ dysfunction type: acute respiratory failure Acute respiratory failure type: with hypoxia Severe sepsis shock status: without septic shock Qualified Code(s): A41.9 - Sepsis, unspecified organism; R65.20 - Severe sepsis without septic shock; J96.01 - Acute respiratory failure with hypoxia PLAN: RECOMMENDATIONS: 1. Continue empiric antibiotics 2. BiPAP breaks during the day 3. Diuresis as tolerated 4. Walking oximetry prior to discharge 5. Okay to leave the intensive care unit from my perspective IMPRESSIONS: 1. Acute hypoxic respiratory failure secondary to community-acquired pneumonia and possible CHF Clinical suspicion for multifactorial etiology. Patient with significant recovery and initial 24 hours following diuresis and BiPAP rescue. This would be suggestive of acute systolic congestive heart failure as a component of presentation. However, dense consolidation with left greater than right is also suggestive of a bacterial pneumonia. Patient has been placed on empiric antibiotics. Okay to use albuterol as needed, but likely no indication for steroids as patient does not have obstructive lung disease. Patient will need a walking oximetry prior to discharge. Okay to leave the intensive care unit from my perspective 2. Acute on chronic systolic CHF Patient with an echocardiogram in October 2019 showing an EF of 15% with relatively preserved right ventricular systolic pressures. Clinical suspicion for an element of overload secondary to hypoxic and increased afterload in the setting of decreased ejection fraction. Patient has been given diuresis with good response. Continue to replace potassium as indicated. We will add on magnesium level given nonsustained V. tach, but this may be secondary to hypokalemia 3. Advanced age/unvaccinated status/hypertension Complicates care, management, recovery and prognosis. Patient does not appear to be on aspirin or a statin at baseline. These would be recommended for CHF with latest guidelines. This can be addressed prior to discharge. Okay to continue with baseline antihypertensives from my perspective. Subjective Subjective Patient did well overnight. No acute issues were reported. Patient has improved on supplemental oxygen requirements. Patient did have some intermittent nonsustained V. tach. Patient subjectively feels improved compared to yesterday. Objective Data Objective Data Vital Signs: Vital Signs Temp Pulse Resp BP Pulse Ox 37.0 C 79 24 H 115/60 97 08/03/21 04:00 08/03/21 06:00 08/03/21 06:00 08/03/21 06:00 08/03/21 06:00 Oxygen Flow Rate (L/min) 2 Oxygen Delivery Method Nasal Cannula Weight: 79.9 kg Body Mass Index (BMI) 33.4 Intake & Output: Intake and Output for Last 24 Hours 08/01/21 08/02/21 08/03/21 23:59 23:59 23:59 Intake Total 305 / 305 1040 / 1040 325 / 325 Output Total 2270 / 2270 0 / 0 Balance 305 / 305 -1230 / -1230 325 / 325 Lab / Micro Data Result Diagrams: 08/03/21 03:30 08/03/21 03:30 Labs: Laboratory Results - last 24 hr 08/02/21 01:20: Magnesium 2.3 08/03/21 03:30: WBC 8.3, RBC 3.58 L, Hgb 11.2 L, Hct 33.2 L, MCV 92.7, MCH 31.3, MCHC 33.7, RDW Std Deviation 48.3 H, RDW Coeff of Tanya 13.9, Plt Count 291, MPV 9.4, Immature Gran % (Auto) 0.500, Neut % (Auto) 77.8 H, Lymph % (Auto) 12.6 L, [place] % (Auto) 8.6, Eos % (Auto) 0.1, Baso % (Auto) 0.4, Absolute Neuts (auto) 6.5, Absolute Lymphs (auto) 1.05, Nucleated RBC % 0 08/03/21 03:30: Sodium 138, Potassium 3.2 L, Chloride 107, Carbon Dioxide 23.0, Anion Gap 8, BUN 20 H, Creatinine 0.86, Estim Creat Clear Calc 41.99, Est GFR (MDRD) Af Amer 82, Est GFR (MDRD) Non-Af 68, BUN/Creatinine Ratio 23.1 H, Glucose 125 H, Calcium 9.0 Micro: Microbiology 08/02/21 01:20 Urine, Clean Catch Legionella Antigen - Final 08/02/21 01:20 Urine, Clean Catch Streptococcus pneumoniae Antigen (M - Final 08/01/21 18:09 Mucosa - Nasopharyngeal Influenza Types A,B Direct FA ([facility]) - Final 08/01/21 18:09 Nasal Secretion SARS-CoV-2 Antigen (Rapid) - Final Physical Exam Const alert and oriented x3 Constitutional Narrative: No conversational dyspnea General Appearance: cooperative Nutritional Appearance: obese HEENT normocephalic, head/scalp atraumatic and moist oral mucous membranes Eyes PERRL, EOMs intact bilaterally and conjunctivae normal Neck full ROM Lymph Lymphatic: lymphadenopathy Lymphadenopathy Laterality: bilateral (Cervical) Resp normal respiratory effort and no use of accessory muscles Auscultation: rhonchi left lower; Negative for rales or wheezes Cardio regular rate, regular rhythm, S1 normal heart sound, S2 normal heart sound, no murmurs, no rub and no gallops GI normal to inspection, nondistended, normoactive bowel sounds Extremity General Extremity: no tenderness to palpation of joints or extremities; Negative for clubbing, cyanosis or edema Skin no rashes or lesions noted Neuro oriented x3 and CN's II-XII intact bilaterally Psych cooperative and affect normal Appearance: well kempt Charges/Coding Visit Charges Inpatient E&M: 18202 Subs Hosp L3
[2021-08-03 07:07] LABS: Magnesium 2.1 mg/dL (1.6-2.6)
[2021-08-03] MEDS: Furosemide 40 MG/4 ML Vial IV ×2 (10:03→17:49)
[2021-08-03] MEDS: guaiFENesin 1,200 MG Tablet 1200 MG PO ×2 (10:03→21:58)
[2021-08-03] MEDS: Heparin Injection (Vial) 5,000 UNIT/ML VIAL 5000 UNIT SC (10:04)
[2021-08-03] MEDS: Potassium Chloride Oral Tablet 20 MEQ PO (10:04)
--- NOTE | 2021-08-03 10:25 | CASEMGMT ---
IDRIS GONSALEZ Face to Face with patient for initial transition planning/care coordination assessment. RN CM introduced self and role at [facility]. Patient sitting in chair, alert and oriented, at bedside. Patient willing to participate in assessment and is able to answer all questions appropriately. Care providers, pharmacy, and demographics verified. Patient wishes to discharge home, denies need for home health at this time. Patient states she has no further needs or concerns at this time. CM to follow for discharge planning needs that may arise. PCP: Ciarra Specialists: Megan fourdrinier tender [facility] Pharmacy: [facility] Insurance: [facility] [place] Pres[place] Benefit: none Living Will/HPOA: none LNOK: , daughter Living Arrangements: Patient lives with in a single story home with 3 steps and railing to enter the home. Patient states she is independent at home. Daughter lives next door and is able to help if needed. Transportation: Driving service, [facility] van DME/HHC: Patient has raised toilet, cane, walker, and grab bars at home. Family has generator. No previous HHC or SNF. Will monitor progress with therapy. Disposition Plan: Patient to discharge home with family support and follow-up plans in place. Will monitor for HHC. Abby BUENO, RN, CM
[2021-08-03] MEDS: Potassium Chloride Oral Tablet 20 MEQ 40 MEQ PO (17:48)
--- NOTE | 2021-08-03 19:33 | PN.HOSP_ITS ---
Subjective Subjective Patient was seen and examined today, I talked extensively with the patient and her today, patient is aware that she has a cardiomyopathy and has very poor pumping function, I told the patient and her that we were not absolutely sure she had pneumonia but we were going to continue antibiotics for a period of time, I also told him that her echocardiogram showed very poor pumping function virtually unchanged from almost 2 years ago. She states that she turned down and offered to be seen for an ICD. does not want palliative care to see the patient, patient also does not want to see palliative care. Objective Data Objective Data Vital Signs: Vital Signs Temp Pulse Resp BP Pulse Ox 97.9 F 88 22 H 101/56 L 95 08/03/21 13:30 08/03/21 16:43 08/03/21 13:30 08/03/21 13:30 08/03/21 13:30 Oxygen Flow Rate (L/min) 1 Oxygen Delivery Method Room Air Weight: 79.9 kg Body Mass Index (BMI) 33.4 Intake & Output: Intake and Output for Last 24 Hours 08/01/21 08/02/21 08/03/21 23:59 23:59 23:59 Intake Total 305 / 305 1040 / 1040 425 / 425 Output Total 2270 / 2270 2400 / 2400 Balance 305 / 305 -1230 / -1230 -1974 / Lab / Micro Data Result Diagrams: 08/03/21 03:30 08/03/21 03:30 Labs: Laboratory Results - last 24 hr 08/03/21 03:30: WBC 8.3, RBC 3.58 L, Hgb 11.2 L, Hct 33.2 L, MCV 92.7, MCH 31.3, MCHC 33.7, RDW Std Deviation 48.3 H, RDW Coeff of Tanya 13.9, Plt Count 291, MPV 9.4, Immature Gran % (Auto) 0.500, Neut % (Auto) 77.8 H, Lymph % (Auto) 12.6 L, [place] % (Auto) 8.6, Eos % (Auto) 0.1, Baso % (Auto) 0.4, Absolute Neuts (auto) 6.5, Absolute Lymphs (auto) 1.05, Nucleated RBC % 0 08/03/21 03:30: Sodium 138, Potassium 3.2 L, Chloride 107, Carbon Dioxide 23.0, Anion Gap 8, BUN 20 H, Creatinine 0.86, Estim Creat Clear Calc 41.99, Est GFR (MDRD) Af Amer 82, Est GFR (MDRD) Non-Af 68, BUN/Creatinine Ratio 23.1 H, Glucose 125 H, Calcium 9.0 08/03/21 03:30: Magnesium 2.1 Micro: Microbiology 08/02/21 01:20 Urine, Clean Catch Legionella Antigen - Final 08/02/21 01:20 Urine, Clean Catch Streptococcus pneumoniae Antigen (M - Final 08/01/21 18:09 Mucosa - Nasopharyngeal Influenza Types A,B Direct FA ([facility]) - Final 08/01/21 18:09 Nasal Secretion SARS-CoV-2 Antigen (Rapid) - Final Radiography Diagnostic Testing: Radiology Impression Echocardiogram 08/02/21 16:16 Interpretation Summary Normal LV size. There is severe global hypokinesis of the left ventricle. Pulmonary artery systolic pressure is 30 mmHg. Small pericardial effusion. The estimated ejection fraction is 15 %. Compared to previous study, the left ventricular systolic function is the same.. Ordering Physician: Alka Vigil Referring Physician: NO;VERONICA JOHN Performed By: Josie Worrell, JOSUE, RVT Physical Exam Const alert, oriented x3 and no apparent distress General Appearance: cooperative, well kempt and well developed Orientation / Consciousness: awake, oriented to person, oriented to place and oriented to time HEENT normocephalic and moist oral mucous membranes Eyes PERRL, EOMs intact bilaterally and conjunctivae normal Neck nuchal rigidity, supple, no JVD, thyroid normal and no carotid bruits General: trachea midline Resp normal respiratory effort Resp Narrative: There are inspiratory rales over the patient's lower lung phelan bilaterally from the mid lung phelan to the bases. Auscultation: Negative for rales, rhonchi or wheezes Cardio regular rate, regular rhythm, S1 normal heart sound, S2 normal heart sound, no murmurs, no rub and no gallops GI normal to inspection, nondistended, normoactive bowel sounds, soft to palpation, non-tender and non-distended Extremity Extremity Narrative: There is minimal nonpitting edema over the lower legs bilaterally. Skin no rashes or lesions noted General Skin Exam: no breakdown Neuro oriented x3, CN's II-XII intact bilaterally, no focal motor deficits and no sensory deficits noted Sensorium / Orientation: awake and alert Speech: speech normal Psych thought process normal and affect normal Assessment & Plan Assessment/Plan (1) Bilateral pneumonia: QUALIFIERS: Pneumonia type: due to unspecified organism Lung location: unspecified part of lung Qualified Code(s): J18.9 - Pneumonia, unspecified organism PLAN: 1. Bilateral community-acquired pneumonia-etiology unclear, I discussed her care with pulmonary medicine today, it was agreed that the patient could be treated with Zosyn as a single agent, patient's vancomycin and Zithromax were stopped #2 acute on chronic systolic congestive heart failure-patient will continue to be diuresed and remain on her cardiac medications #3 acute hypoxic respiratory failure-patient is currently on room air at this time #4 nonischemic cardiomyopathy #5 essential hypertension Charges/Coding Visit Charges Inpatient E&M: 21417 Subs Hosp L2
[2021-08-03] MEDS: 0.9% Saline Lock 10 ML Syringe IV (21:57)
[2021-08-03] MEDS: Labetalol 100 MG Tablet PO (21:58)
[2021-08-03] MEDS: Spironolactone 25 MG Tablet PO (22:00)
[2021-08-04] VITALS (9 sets, daily range): BP systolic 109–125; BP diastolic 59–68; PULSE 80–98; RESP 17–19; TEMP 36.1–36.3; O2SAT 93–97
[2021-08-04 04:12] LABS: Anion Gap 8 (5-15); BUN 21 mg/dL (7-18); BUN/Creat Ratio 27.6 RATIO (10-20); Calcium,Total 8.9 mg/dL (8.5-10.1); Chloride 107 mmol/L (98-107); Creatinine, Serum 0.76 mg/dL (0.55-1.02); EST Glomerular Filtration Rate 79 mL/min (>60); Est Glom Filt Rate - Afr Amer 95 mL/min (>60); Estimated Creatinine Clearance 36.12 ml/min; Glucose 103 mg/dL (74-106); Potassium 3.4 mmol/L (3.5-5.1); Sodium Level 141 mmol/L (136-145)
[2021-08-04 07:12] LABS: Absolute Lymphocyte Count 1.77 X10^3/uL (0.83-4.51); Absolute Neutrophil Count 2.8 X10^3/uL (2.0-7.7); Basophil# 0.02 X10^3/uL; Basophil% 0.4 % (0-1); Eosinophil# 0.04 X10^3/uL; Eosinophils% 0.8 % (0-5); Hematocrit 37.1 % (37-47); Hemoglobin 11.9 g/dL (12.0-15.0); Lymphocyte # 1.77 X10^3/ul (0.83-4.51); Lymphocyte % 33.5 % (19-41); Mean Corp Hgb Conc 32.1 g/dL (32-36); Mean Corpuscular Hgb 30.6 pg (27.0-32.0); Mean Corpuscular Volume 95.4 fL (81-99); Monocyte# 0.63 X10^3/uL; Monocyte% 11.9 % (0-10); NRBC Flagged by Analyzer 0 % (0-5); Neutrophil % 52.8 % (47-70); POSITIVE MORPHOLOGY YES; Platelet Count 341 K/mm3 (150-450); RBC Distribution Width SD 49.2 fl (35.1-43.9); Red Blood Count 3.89 M/mm3 (4.2-5.4); White Blood Count 5.3 K/mm3 (4.4-11.0)
[2021-08-04 07:16] LABS: Differential Indicated SCAN CRITERIA MET
--- NOTE | 2021-08-04 07:45 | PN.CC_ITS ---
Assessment & Plan Assessment/Plan (1) Acute hypoxemic respiratory failure: (2) Bilateral pneumonia: QUALIFIERS: Pneumonia type: due to unspecified organism Lung location: unspecified part of lung Qualified Code(s): J18.9 - Pneumonia, unspecified organism (3) Acute exacerbation of CHF (congestive heart failure): QUALIFIERS: Heart failure type: unspecified Qualified Code(s): I50.9 - Heart failure, unspecified (4) Nonischemic cardiomyopathy: (5) Sepsis: QUALIFIERS: Sepsis type: sepsis due to unspecified organism Sepsis acute organ dysfunction status: with acute organ dysfunction Severe sepsis acute organ dysfunction type: acute respiratory failure Acute respiratory failure type: with hypoxia Severe sepsis shock status: without septic shock Qualified Code(s): A41.9 - Sepsis, unspecified organism; R65.20 - Severe sepsis without septic shock; J96.01 - Acute respiratory failure with hypoxia PLAN: RECOMMENDATIONS: 1. Complete 5 days of total antibiotics for CAP 2. Discontinue Bipap 3. Diuresis as tolerated 4. Walking oximetry prior to discharge 5. Hemodynamically stable on room air. Will sign off from a pulmonary / critical care perspective IMPRESSIONS: 1. Acute hypoxic respiratory failure secondary to community-acquired pneumonia and possible CHF Clinical suspicion for multifactorial etiology. Patient with significant recovery and initial 24 hours following diuresis and BiPAP rescue. This would be suggestive of acute systolic congestive heart failure as a component of presentation. However, dense consolidation with left greater than right is also suggestive of a bacterial pneumonia. Patient has been placed on empiric antibiotics for CAP. Complete 5 days total of ABX. Okay to use albuterol as needed, but likely no indication for steroids as patient does not have obstructive lung disease. Patient will need a walking oximetry prior to discharge. Hemodynamically stable on room air. Will sign off 2. Acute on chronic systolic CHF Patient with an echocardiogram in October 2019 showing an EF of 15% with relatively preserved right ventricular systolic pressures. Clinical suspicion for an element of overload secondary to hypoxic and increased afterload in the setting of decreased ejection fraction. Patient has been given diuresis with good response. Continue to replace potassium as indicated. 3. Advanced age/unvaccinated status/hypertension Complicates care, management, recovery and prognosis. Patient does not appear to be on aspirin or a statin at baseline. These would be recommended for CHF with latest guidelines. This can be addressed prior to discharge. Okay to continue with baseline antihypertensives from my perspective. Subjective Subjective Patient did well overnight. No acute issues reported. Patient denies any chest pain or palpitations. Patient asking if she can go home. Objective Data Objective Data Vital Signs: Vital Signs Temp Pulse Resp BP Pulse Ox 36.2 C L 80 18 109/59 L 93 08/04/21 01:30 08/04/21 04:00 08/04/21 01:30 08/04/21 01:30 08/04/21 01:30 Oxygen Flow Rate (L/min) 1 Oxygen Delivery Method Room Air Weight: 77.1 kg Body Mass Index (BMI) 33.4 Intake & Output: Intake and Output for Last 24 Hours 08/02/21 08/03/21 08/04/21 23:59 23:59 23:59 Intake Total 1040 / 1040 469 / 469 109.75 / 109.75 Output Total 2270 / 2270 3050 / 3050 100 / 100 Balance -1230 / -1230 -2581 / -2581 9.75 / 9.75 Lab / Micro Data Result Diagrams: 08/04/21 03:20 08/04/21 03:20 Labs: Laboratory Results - last 24 hr 08/04/21 03:20: Sodium 141, Potassium 3.4 L, Chloride 107, Carbon Dioxide 26.0, Anion Gap 8, BUN 21 H, Creatinine 0.76, Estim Creat Clear Calc 36.12, Est GFR (MDRD) Af Amer 95, Est GFR (MDRD) Non-Af 79, BUN/Creatinine Ratio 27.6 H, Glucose 103, Calcium 8.9 08/04/21 03:20: WBC 5.3, RBC 3.89 L, Hgb 11.9 L, Hct 37.1, MCV 95.4, MCH 30.6, MCHC 32.1, RDW Std Deviation 49.2 H, RDW Coeff of Tanya 14.0, Plt Count 341, MPV 10.0, Immature Gran % (Auto) 0.600, Neut % (Auto) 52.8, Lymph % (Auto) 33.5, [place] % (Auto) 11.9 H, Eos % (Auto) 0.8, Baso % (Auto) 0.4, Absolute Neuts (auto) 2.8, Absolute Lymphs (auto) 1.77, Nucleated RBC % 0 Micro: Microbiology 08/02/21 01:20 Urine, Clean Catch Legionella Antigen - Final 08/02/21 01:20 Urine, Clean Catch Streptococcus pneumoniae Antigen (M - Final 08/01/21 18:09 Mucosa - Nasopharyngeal Influenza Types A,B Direct FA ([facility]) - Final 08/01/21 18:09 Nasal Secretion SARS-CoV-2 Antigen (Rapid) - Final Radiography Diagnostic Testing: Radiology Impression Echocardiogram 08/02/21 16:16 Interpretation Summary Normal LV size. There is severe global hypokinesis of the left ventricle. Pulmonary artery systolic pressure is 30 mmHg. Small pericardial effusion. The estimated ejection fraction is 15 %. Compared to previous study, the left ventricular systolic function is the same.. Ordering Physician: Alka Vigil Referring Physician: JUAN CARLOS;VERONICA JOHN Performed By: Josie Worrell, JOSUE, RVT Physical Exam Const alert and oriented x3 Constitutional Narrative: No conversational dyspnea General Appearance: cooperative Nutritional Appearance: obese HEENT normocephalic, head/scalp atraumatic and moist oral mucous membranes Eyes PERRL, EOMs intact bilaterally and conjunctivae normal Neck full ROM Lymph Lymphatic: lymphadenopathy Lymphadenopathy Laterality: bilateral (Cervical) Resp normal respiratory effort and no use of accessory muscles Auscultation: rhonchi left lower; Negative for rales or wheezes Cardio regular rate, regular rhythm, S1 normal heart sound, S2 normal heart sound, no murmurs, no rub and no gallops GI normal to inspection, nondistended, normoactive bowel sounds Extremity General Extremity: no tenderness to palpation of joints or extremities; Negative for clubbing, cyanosis or edema Skin no rashes or lesions noted Neuro oriented x3 and CN's II-XII intact bilaterally Psych cooperative and affect normal Appearance: well kempt Charges/Coding Visit Charges Inpatient E&M: 28827 Subs Hosp L2
[2021-08-04] MEDS: Potassium Chloride Oral Tablet 20 MEQ 40 MEQ PO (09:56)
[2021-08-04] MEDS: Spironolactone 25 MG Tablet PO (09:56)
[2021-08-04] MEDS: guaiFENesin 1,200 MG Tablet 1200 MG PO (09:57)
[2021-08-04] MEDS: Lisinopril 10 MG Tablet PO (09:57)
[2021-08-04] MEDS: Furosemide 40 MG/4 ML Vial IV (09:57)
[2021-08-04] MEDS: Labetalol 100 MG Tablet PO (09:57)
--- NOTE | 2021-08-04 11:40 | PCM.DC ---
Discharge Instructions Diet Discharge Diet: No restrictions and - (no added salt) Activity Discharge Activity: Return to Normal Activity Weight Bearing Status: Full weight bearing Follow Up Care Test Results: Test results from this visit will be discussed in further detail at your follow-up appointment, if applicable. Discharge Plan Admission Admit Date/Time: 08/01/21 21:40 Primary Reason for Your Visit: congestive heart failure, pneumonia Attending Provider: Evgeny Solis Primary Care Provider: Toni Lafleur Consulting Providers: Joselo Zaragoza Discharge Orders/Prescriptions Prescriptions: New spironolactone 25 mg Tablet 25 mg PO BID Qty: 60 RF: 0 cefdinir 300 mg capsule 300 mg PO BID Qty: 10 RF: 0 Continued labetalol 200 MG tablet 100 mg PO BID Qty: 60 RF: 1 lisinopril 10 mg tablet 10 mg PO DAILY Qty: 90 RF: 3 potassium chloride 20 mEq tablet,ER particles/crystals 20 meq PO DAILY Qty: 90 RF: 3 Changed furosemide 40 mg tablet 40 mg PO BID Qty: 60 RF: 3 Referrals / Follow Up: Toni Lafleur DO [Primary Care Provider] - In 1 Week (you will need a BMP lab test performed) Rolo Guzman MD [STAFF PHYSICIAN] - See Referral Note (in 2-3 weeks) Disposition Disposition (needs filled in before D/C Order can be placed): Home, Self Care
--- NOTE | 2021-08-04 16:51 | DS.PCM_ITS ---
Providers Date of Admission: 08/01/21 Date of Discharge: 08/04/21 Primary Care Physician: Dr. Toni Lafleur, Consultations 08/01/21 23:04 Consult: Teletype Installer / Pulmonary Medicine Routine Consulting Provider: Joselo Zaragoza Reason for Consult: Multifocal pneumonia EMERGENT Consult: No MD Notified: Yes Date Notified: 08/01/21 Time Notified: 21:47 Method of Notification: Text Reason For Visit: ACUTE HYPOXEMIC RESPIRATORY FAILURE SECONDARY TO Diagnosis Discharge Diagnosis (1) Acute hypoxemic respiratory failure: Status: Acute Code(s): J96.01 - Acute respiratory failure with hypoxia (2) Bilateral pneumonia: Status: Acute Code(s): J18.9 - Pneumonia, unspecified organism Qualifiers: Lung location: unspecified part of lung Pneumonia type: due to unspecified organism Qualified Code(s): J18.9 - Pneumonia, unspecified organism (3) Acute exacerbation of CHF (congestive heart failure): Status: Acute Code(s): I50.9 - Heart failure, unspecified Qualifiers: Heart failure type: unspecified Qualified Code(s): I50.9 - Heart failure, unspecified (4) Nonischemic cardiomyopathy: Status: Chronic Code(s): I42.8 - Other cardiomyopathies (5) Sepsis: Status: Acute Code(s): A41.9 - Sepsis, unspecified organism Qualifiers: Acute respiratory failure type: with hypoxia Sepsis acute organ dysfunction status: with acute organ dysfunction Sepsis type: sepsis due to unspecified organism Severe sepsis acute organ dysfunction type: acute respiratory failure Severe sepsis shock status: without septic shock Qualified Code(s): A41.9 - Sepsis, unspecified organism; R65.20 - Severe sepsis without se ptic shock; J96.01 - Acute respiratory failure with hypoxia Plan: 1. Bilateral community-acquired pneumonia-etiology unclear #2 acute on chronic systolic congestive heart failure- #3 acute hypoxic respiratory failure secondary to community-acquired pneumonia and acute on chronic systolic congestive heart failure #4 nonischemic cardiomyopathy #5 essential hypertension Medications at Discharge Home Medications labetalol 100 mg PO BID #60 tab 10/24/19 lisinopril 10 mg tablet 10 mg PO DAILY #90 tab 04/15/21 potassium chloride 20 mEq tablet,extended release(part/cryst) 20 meq PO DAILY #90 tablet 06/04/21 cefdinir 300 mg PO BID #10 cap 08/04/21 furosemide 40 mg PO BID #60 tab 08/04/21 spironolactone 25 mg PO BID #60 tab 08/04/21 Hospital Course Operations None Procedures 2-D Echocardiogram Summary of Care Provided Minutes Spent on Discharge: 32 Hospital Course: 76-year-old white female was seen and examined in the emergency room at [facility] with a chief complaint of increasing s hortness of breath x2 days. Work-up in the emergency room included a chest x- ray which showed bilateral pulmonary infiltrates, white blood cell count was elevated at 15.5, lactic acid was 2.2, creatinine was 1.23. Beta nitric peptide was also elevated at 1059. Patient's lactic acid elevation was felt to be secondary to hypoxia. Patient was admitted to ICU, she was placed on IV antibiotics and IV diuretics. Her overall status improved during her hospital stay, echocardiogram was obtained which showed an EF of 15%. Patient was finally able to be weaned off oxygen. On 08/04/2021, patient was seen and examined: On examination she appeared in good health and spirits, she does not appear to be in any distress. Vital signs as documented. Skin warm and dry and without overt rashes. Neck without JVD, thyroid appears normal, trachea is midline, neck is supple. Lungs clear, normal air movement was noted. Heart exam notable for regular rhythm, normal sounds and absence of murmurs, rubs or g allops. Abdomen unremarkable and without evidence of organomegaly, masses, or abdominal aortic enlargement, bowel sounds are present in all 4 quadrants, no abdominal tenderness was noted. Extremities nonedematous, no cyanosis was noted, no clubbing was noted. Neuro: Cranial nerves II through XII are grossly intact, no focal motor deficits were noted, sensation to light touch and pinprick is intact, motor exam 5/5 throughout. Psych: Patient is alert and oriented x3, she does not appear anxious or depressed, she does not appear agitated. Patient was felt to be stable for discharge home on 08/04/2021. Weight / BMI Weight Weight: 77.1 kg Body Mass Index (BMI) 33.4 ABG / Lab / Microbiology Data Result Diagrams: 08/04/21 03:20 08/04/21 03:20 Laboratory: Laboratory Results - last 24 hr 08/04/21 03:20: Sodium 141, Potassium 3.4 L, Chloride 107, Carbon Dioxide 26.0, Anion Gap 8, BUN 21 H, Creatinine 0.76, Estim Creat Clear Calc 36.12, Est GFR (MDRD) Af Amer 95, Est GFR (MDRD) Non-Af 79, BUN/Creatinine Ratio 27.6 H, Glucos e 103, Calcium 8.9 08/04/21 03:20: WBC 5.3, RBC 3.89 L, Hgb 11.9 L, Hct 37.1, MCV 95.4, MCH 30.6, MCHC 32.1, RDW Std Deviation 49.2 H, RDW Coeff of Tanya 14.0, Plt Count 341, MPV 10.0, Immature Gran % (Auto) 0.600, Neut % (Auto) 52.8, Lymph % (Auto) 33.5, [place] % (Auto) 11.9 H, Eos % (Auto) 0.8, Baso % (Auto) 0.4, Absolute Neuts (auto) 2.8, Absolute Lymphs (auto) 1.77, Nucleated RBC % 0 Microbiology: Microbiology 08/01/21 17:56 Blood Culture (Wb) - Anticubital Right Blood Culture - Preliminary No growth in 48 hours. 08/01/21 17:55 Blood Culture (Wb) - Anticubital Left Blood Culture - Preliminary No growth in 48 hours. 08/02/21 01:20 Urine, Clean Catch Legionella Antigen - Final 08/02/21 01:20 Urine, Clean Catch Streptococcus pneumoniae Antigen (M - Final 08/01/21 18:09 Mucosa - Nasopharyngeal Influenza Types A,B Direct FA ([facility]) - Final 08/01/21 18:09 Nasal Secretion SARS-CoV-2 Antigen (Rapid) - Final D/C Instructions Discharge Diet: No restrictions and - (no added salt) Weight Bearing Status: Full weight bearing Meaningful Use Info Meaningful Use Diagnoses (Choose all that apply): CHF CHF ESTEPHANIA/ARB ordered at discharge?: Yes Documented LVEF (%): 15 Discharge Plan Admission Admit Date/Time: 08/01/21 21:40 Primary Reason for Your Visit: congestive heart failure, pneumonia Attending Provider: Evgeny Solis Primary Care Provider: Toni Lafleur Consulting Providers: Joselo Zaragoza Discharge Orders/Prescriptions Prescriptions: New spironolactone 25 mg Tablet 25 mg PO BID Qty: 60 RF: 0 cefdinir 300 mg capsule 300 mg PO BID Qty: 10 RF: 0 Continued labetalol 200 MG tablet 100 mg PO BID Qty: 60 RF: 1 lisinopril 10 mg tablet 10 mg PO DAILY Qty: 90 RF: 3 potassium chloride 20 mEq tablet,ER particles/crystals 20 meq PO DAILY Qty: 90 RF: 3 Changed furosemide 40 mg tablet 40 mg PO BID Qty: 60 RF: 3 Referrals / Follow Up: Toni Lafleur DO [Primary Care Provider] - In 1 Week (you will need a BMP lab test performed) Rolo Guzman MD [STAFF PHYSICIAN] - See Referral Note (in 2-3 weeks) Disposition Disposition (needs filled in before D/C Order can be placed): Home, Self Care Charges/Coding Visit Charges Inpatient E&M: 67905 Disch Hosp
== END 2021-08-04 14:10 | disposition home or self-care (01) | DRG 871 ==
LOC: ED 19:40 → ICU 21:53
PROVIDERS: Internal Medicine; Internal Medicine Critical Care Medicine; Admitting Provider Hospitalist; Emergency Provider Emergency Medicine; PCP Family Medicine; Visit Provider Internal Medicine
DX: A41.9 Sepsis, unspecified organism (principal); J18.9 Pneumonia, unspecified organism; I50.23 Acute on chronic systolic (congestive) heart failure; J96.01 Acute respiratory failure with hypoxia; I42.8 Other cardiomyopathies; R65.20 Severe sepsis without septic shock; E87.6 Hypokalemia; I44.7 Left bundle-branch block, unspecified; E66.9 Obesity, unspecified; I11.0 Hypertensive heart disease with heart failure; Z28.3 Underimmunization status; Z79.899 Other long term (current) drug therapy; Z68.33 Body mass index [BMI] 33.0-33.9, adult
CPT/HCPCS: 71045; 71275; 80048; 80053; 83605; 83735; 83880; 84484; 85025; 87040; 87426; 87449; 87635; 87804; 93005; 93306; 94002; 94003; 94640; 94667; 94668; 97162; 97166; 97802; 99285; J7050; Q9967; U0005; A4216; J1940; U0003

== ENCOUNTER → 2021-08-21 10:42 | Outpatient (CLI) | payer OTHER, SELFPAY ==
[2021-08-21 13:22] LABS: Anion Gap 6 (5-15); BUN 33 mg/dL (7-18); BUN/Creat Ratio 37.5 RATIO (10-20); Chloride 106 mmol/L (98-107); Creatinine, Serum 0.88 mg/dL (0.55-1.02); EST Glomerular Filtration Rate 66 mL/min (>60); Est Glom Filt Rate - Afr Amer 80 mL/min (>60); Glucose 91 mg/dL (74-106); Potassium 4.4 mmol/L (3.5-5.1); Sodium Level 139 mmol/L (136-145)
== END ==
PROVIDERS: PCP Family Medicine; Referring Provider Physician Assistant Medical; Visit Provider Physician Assistant Medical
DX: I11.0 Hypertensive heart disease with heart failure (principal); I50.22 Chronic systolic (congestive) heart failure; I42.8 Other cardiomyopathies
CPT/HCPCS: 36415; 80048

== ENCOUNTER 2023-02-03 09:59 | Inpatient (IN) | payer OTHER, SELFPAY ==
[2023-02-03] VITALS (31 sets, daily range): BP systolic 98–157; BP diastolic 55–107; PULSE 97–200; RESP 12–35; TEMP 36.6–36.9; O2SAT 78–100; BMI 30.6; BMI 29.2
[2023-02-03 10:25] LABS: Absolute Neutrophil Count 8.8 X10^3/uL (2.0-7.7); Basophil# 0.04 X10^3/uL; Basophil% 0.4 % (0-1); Eosinophil# 0.01 X10^3/uL; Eosinophils% 0.1 % (0-5); Hematocrit 33.1 % (37-47); Hemoglobin 10.9 g/dL (12.0-15.0); Lymphocyte % 10.8 % (19-41); Mean Corp Hgb Conc 32.9 g/dL (32-36); Mean Corpuscular Hgb 31.3 pg (27.0-32.0); Mean Corpuscular Volume 95.1 fL (81-99); Mean Platelet Vol. 9.4 fl (6.2-12.0); NRBC Flagged by Analyzer 0 % (0-5); Neutrophil # 8.77 X10^3/uL (2.7-7.7); Neutrophil % 79.3 % (47-70); Platelet Count 282 K/mm3 (150-450); RBC Distribution Width CV 13.5 % (11.6-14.6); RBC Distribution Width SD 46.7 fl (35.1-43.9); Red Blood Count 3.48 M/mm3 (4.2-5.4); White Blood Count 11.1 K/mm3 (4.4-11.0)
[2023-02-03 10:39] LABS: Anion Gap 9 (5-15); BUN 15 mg/dL (7-18); BUN/Creat Ratio 16.9 RATIO (10-20); Calcium,Total 9.3 mg/dL (8.5-10.1); Chloride 106 mmol/L (98-107); Creatinine, Serum 0.89 mg/dL (0.55-1.02); EST Glomerular Filtration Rate 65 mL/min (>60); Est Glom Filt Rate - Afr Amer 79 mL/min (>60); Estimated Creatinine Clearance 41.87 ml/min; Glucose 110 mg/dL (74-106); Potassium 3.3 mmol/L (3.5-5.1); Sodium Level 140 mmol/L (136-145)
--- NOTE | 2023-02-03 11:05 | ED.VIS.DYS ---
HPI History of Present Illness Chief Complaint: Shortness of Breath Informant: patient Narrative Narrative: Patient presents with dyspnea. Its really built up over the last 1 to 2 days. She has orthopnea. Some dyspnea on exertion. She denies chest pain. She denies coughing. She states she has a history of CHF and this feels like CHF. She did have some nausea vomiting and diarrhea last week but that has resolved. She thinks she got her meds in but is not sure that they stay down. She did stop the lisinopril because she had read that that can cause the nausea vomiting diarrhea. But she has been off the lisinopril for only about 3 or 4 days. She is back on the Lasix. She had taken this when she was ill but not sure how much it stayed down. [facility] Medical History Abnormal electrocardiogram Acute exacerbation of CHF (congestive heart failure) Acute hypoxemic respiratory failure Acute respiratory distress Acute respiratory failure with hypoxia Bilateral pneumonia Chronic systolic (congestive) heart failure Essential hypertension LBBB (left bundle branch block) Non-rheumatic mitral regurgitation Nonischemic cardiomyopathy Sepsis Home Medications labetalol 200 mg tablet 100 mg PO BID BLOOD PRESSURE #60 tabs 10/24/19 [Rx Last Taken Unknown] furosemide 40 mg tablet 40 mg PO QAM 08/21/21 [History Last Taken Unknown] lisinopril 10 mg tablet 10 mg PO DAILY #90 tabs 08/21/21 [Rx Last Taken Unknown] spironolactone 25 mg tablet 25 mg PO QAM #90 tabs 09/27/22 [Rx Last Taken Unknown] Allergy/AdvReac Type Severity Reaction Status Date / Time torsemide AdvReac Unknown Unknown Verified 02/03/23 10:00 Family History Mother Myocardial infarction, Onset Age: 56 Father Myocardial infarction, Onset Age: 81 Other Heart disease Surgical History History of appendectomy History of cholecystectomy History of knee replacement procedure of left knee History of left heart catheterization (LHC) (~10/23/19) Social History Smoking Status: Never smoker alcohol intake: never substance use type: does not use ROS ROS ED ROS Narrative A complete review of systems was performed and is negative except as documented in the history of present illness. Some specific details below. Constitutional: No recent fevers or chills. EYE: No discharge, visual complaints, or pain. ENT: No difficulty swallowing. No swelling. No pain. No reflux symptoms. CV: No real chest pain. No palpitations although her heart rate is a bit increased. Respiratory: See history of present illness. She denies a cough but does have orthopnea and dyspnea. GI: No abdominal pain. No nausea vomiting diarrhea. No blood in stool. : No frequency dysuria or hematuria. Musculoskeletal: No recent trauma. No pains. No swelling. Skin: No rash. Nondiaphoretic. Neuro: No weakness or numbness. Endocrine: No polyuria or polydipsia. EXAM Physical Exam Narrative Exam Narrative: CONSTITUTIONAL: Patient is nontoxic in appearance. The patient looks comfortable. Work of breathing looks normal. HEENT: No notable trauma. Mucous membranes moist. No sinus tenderness. No indication of pain with swallowing. EYES: No conjunctival injection. No proptosis. NECK:No JVD. No stridor. CARDIOVASCULAR: Mildly tachycardic rate. Regular rhythm. No notable murmur. No JVD. Her monitor does appear to show a sinus rhythm with occasional PVCs and occasional PACs. It does not look like atrial fibrillation. Overall rate is about 105 while I am in the room. RESPIRATORY: No respiratory distress. Breathing is unlabored. No wheezes. No rhonchi. She does have bilateral rales at the bottom third or half of her lungs. No pain with a deep breath. No chest wall tenderness. Patient's saturations about 96% while on 2 L. I do not have a recorded saturation on room air at this point. GASTROINTESTINAL: Not distended. Bowel sounds are normal. No tenderness. No guarding. No rebound. No palpable mass. No bruit is heard. GENITOURINARY: No tenderness over the bladder. No CVA tenderness. MUSCULOSKELETAL: Atraumatic. No notable peripheral edema. No cord. No tenderness along the deep venous system. No asymmetry. No distended veins. NEUROLOGICAL: Patient is alert and appropriate. No focal deficit noted. SKIN: No noted rashes. No diaphoresis. PSYCHIATRIC: Patient is calm. Mood is appropriate. Const Vital Signs: 02/03/23 10:00 02/03/23 10:17 02/03/23 10:17 Temperature 98.4 F Temperature Source Temporal Pulse Rate 113 H Respiratory Rate 14 24 H Respiratory Effort Respiratory Pattern Blood Pressure 116/70 Blood Pressure Mean 85 Pulse Ox 93 96 96 Oxygen Delivery Method Room Air Nasal Cannula Nasal Cannula Oxygen Flow Rate (L/min) 2 2 02/03/23 10:20 02/03/23 10:21 Temperature Temperature Source Pulse Rate 113 H Respiratory Rate 27 H Respiratory Effort Short of Breath Labored Respiratory Pattern Tachypnea Blood Pressure 126/72 H Blood Pressure Mean 90 Pulse Ox 96 Oxygen Delivery Method Nasal Cannula Nasal Cannula Oxygen Flow Rate (L/min) 2 2 MDM MDM MDM Narrative Medical decision making narrative: My independent interpretation of the patient's x-ray does show cardiomegaly and CHF final reading is mild cardiomegaly and CHF per radiology. Patient CBC showed minimal elevation of white count minimal anemia that or not the source of her symptoms. Electrolytes show minimal decreased potassium at 3.3. BNP is elevated above her last level at 1527. With her auscultatory findings, dyspnea, chest x-ray findings, BNP I do think this is CHF. We attempted walking her and she desatted to 84% got very dyspneic. I do not think she is appropriate to go home. I did review prior echo report back in July 2021 that shows she has a very poor ejection fraction of 15% and I do not think she will do well as an outpatient until we get her better. Hospitalist is paged. Lab Data Attestation: I reviewed the patient's lab results. Labs: Laboratory Results - last 24 hr 02/03/23 02/03/23 02/03/23 10:15 10:15 10:15 WBC 11.1 H RBC 3.48 L Hgb 10.9 L Hct 33.1 L MCV 95.1 MCH 31.3 MCHC 32.9 RDW Std Deviation 46.7 H RDW Coeff of Tanya 13.5 Plt Count 282 MPV 9.4 Immature Gran % (Auto) 0.400 Neut % (Auto) 79.3 H Lymph % (Auto) 10.8 L [place] % (Auto) 9.0 Eos % (Auto) 0.1 Baso % (Auto) 0.4 Absolute Neuts (auto) 8.8 H Absolute Lymphs (auto) 1.20 Nucleated RBC % 0 Sodium 140 Potassium 3.3 L Chloride 106 Carbon Dioxide 25.0 Anion Gap 9 BUN 15 Creatinine 0.89 Estim Creat Clear Calc 41.87 Est GFR (MDRD) Af Amer 79 Est GFR (MDRD) Non-Af 65 BUN/Creatinine Ratio 16.9 Glucose 110 H Calcium 9.3 B-Natriuretic Peptide 1527.0 H EKG Initial EKG: Comments: My independent interpretation the patient's EKG done for dyspnea does show what appears to be a sinus rhythm with PVCs and possible PAC. She has left bundle block pattern. Overall rate is 109. OK interval is normal. QRS duration and QTc are long. This is similar to EKG from 01 August 2021. Management Discussion w/another healthcare provider: Hospitalist Discharge Plan Triage Chief Complaint: Shortness of Breath ED Provider: Jesus Motley Dx/Rx/DC Orders Clinical Impression: Acute congestive heart failure, Cardiomyopathy, Cardiac LV ejection fraction 10-20%, Hypoxia Prescriptions: No Action furosemide 40 mg tablet 40 mg PO QAM lisinopril 10 mg tablet 10 mg PO DAILY Qty: 90 3RF spironolactone 25 mg tablet 25 mg PO QAM Qty: 90 3RF labetalol 200 MG tablet 100 mg PO BID Qty: 60 1RF Primary Care Provider: Toni Lafleur Referrals: Toni Lafleur DO [Primary Care Provider] - Disposition Disposition: Acute Care Hospital [facility]
--- NOTE | 2023-02-03 11:10 | RAD_ITS ---
STUDY: X-RAY CHEST REASON FOR EXAM: Female, 77 years old. Dyspnea TECHNIQUE: Single AP portable view of the chest. COMPARISON: Comparison is made with prior study dated August 01, 2021. FINDINGS: EKG electrodes are seen. There is evidence of CHF. There is no demonstrated pleural abnormality. There is mild cardiac enlargement. Normal mediastinum and nu. Normal visualized pulmonary arteries. There is atherosclerotic calcification of the aortic arch with tortuosity. There are diffuse degenerative changes of the visualized thoracic spine. Normal visualized ribs, clavicles, and shoulders. There is no demonstrated abnormality of the visualized soft tissue structures of the upper abdomen. RAD/Chest 1 View (Portable) IMPRESSION: Mild cardiomegaly and CHF. Electronically Signed: Roge Murray MD at 11:55 EDT ,
[2023-02-03] MEDS: Furosemide 40 MG/4 ML Vial IV ×3 (11:16→21:26)
--- NOTE | 2023-02-03 12:27 | EKG12_ITS ---
Test Reason : Blood Pressure : / mmHG Vent. Rate : 201 BPM Atrial Rate : 000 BPM P-R Int : 000 ms QRS Dur : 108 ms QT Int : 234 ms P-R-T Axes : 000 -17 153 degrees QTc Int : 428 ms Wide complex tachycardia Inferior infarct , age undetermined Anteroseptal infarct , age undetermined ST & T wave abnormality, consider lateral ischemia Abnormal ECG When compared with ECG of 03-FEB-2023 11:01, MANUAL COMPARISON REQUIRED, DATA IS UNCONFIRMED Confirmed by SHANEL BAÑUELOS, DANIKA ([id number]), editorial manager MAGGIE HYATT ([id number]) on 02/08/2023 9:09:15 AM Referred By: Confirmed By:DANIKA UGARTE MD
--- NOTE | 2023-02-03 12:42 | ED.RN ---
THIS RN RESPONDED TO CALL LIGHT FROM PT. PT DIAPHORETIC, CYANOTIC, COMPLAINING OF CHEST PAIN. IDRIS CH CALLED FOR REPEAT EKG. PT HEART RATE IN 200S SPO2 78. DR. RANGEL RESPONDED TO CALL. PT HEART RATE NOW 143. PT PLACED ON BIPAP SPO2 96. PT REPORTS DECREASE IN CHEST PAIN.
[2023-02-03] MEDS: Nitroglycerin SL (ED/IMG/CATH) 0.4 MG TABLET SL (12:53)
--- NOTE | 2023-02-03 13:03 | NURSING ---
Addendum entered by Avril Edgar 02/03/23 13:14: DR ADAMSON Original Note: ICU CHF, RESP FAILURE
--- NOTE | 2023-02-03 13:03 | PCM.HP.STD ---
HPI - General General Date of Admission: 02/03/23 Date of Service: 02/03/23 Chief Complaint: Shortness of breath HPI Narrative ETTA VEGA, is a 77 F with past medical history significant for nonischemic cardiomyopathy with ejection fraction of 15 to 20% who presented with shortness of breath. Patient could not provide any history since she was on BiPAP at the time of my assessment. History was therefore provided by the who was with the patient. The patient's symptoms started days prior to her admission. In addition to shortness of breath patient had reported getting tired with minimal activity. Patient was brought to the emergency department where imaging studies came back consistent with acute congestive heart failure. Patient was found to be profoundly dyspneic and hypoxic had to be placed on BiPAP and nitroglycerin drip and decision made to admit patient to a monitored bed for further management [facility] Medical History Abnormal electrocardiogram Acute exacerbation of CHF (congestive heart failure) Acute hypoxemic respiratory failure Acute respiratory distress Acute respiratory failure with hypoxia Bilateral pneumonia Chronic systolic (congestive) heart failure Essential hypertension LBBB (left bundle branch block) Non-rheumatic mitral regurgitation Nonischemic cardiomyopathy Sepsis Home Medications furosemide 40 mg tablet 40 mg PO DAILY FLLUID 08/21/21 [History Last Taken 02/02/23] labetalol 200 mg tablet 200 mg PO BID BLOOD PRESSURE 02/03/23 [History Last Taken 02/02/23] lisinopril 10 mg tablet 10 mg PO DAILY BLOOD PRESSURE 02/03/23 [History Last Taken 3 Days Ago ~01/31/23] spironolactone 25 mg tablet 25 mg PO BID BLOOD PRESSURE 02/03/23 [History Last Taken 02/02/23] Allergy/AdvReac Type Severity Reaction Status Date / Time torsemide AdvReac Unknown Unknown Verified 02/03/23 10:00 Family History Mother Myocardial infarction, Onset Age: 56 Father Myocardial infarction, Onset Age: 81 Other Heart disease Surgical History History of appendectomy History of cholecystectomy History of knee replacement procedure of left knee History of left heart catheterization (LHC) (~10/23/19) Social History Smoking Status: Never smoker alcohol intake: never substance use type: does not use ROS Review of Systems ROS Unobtainable: due to mental condition Vital Signs Vital Signs Vital Signs: 02/03/23 10:00 02/03/23 10:17 02/03/23 10:17 Temperature 98.4 F Temperature Source Temporal Pulse Rate 113 H Respiratory Rate 14 24 H Respiratory Effort Respiratory Pattern Blood Pressure 116/70 Blood Pressure Mean 85 Pulse Ox 93 96 96 Oxygen Delivery Method Room Air Nasal Cannula Nasal Cannula Oxygen Flow Rate (L/min) 2 2 02/03/23 10:20 02/03/23 10:21 02/03/23 12:02 Temperature Temperature Source Pulse Rate 113 H Respiratory Rate 27 H Respiratory Effort Short of Breath Labored Respiratory Pattern Tachypnea Blood Pressure 126/72 H Blood Pressure Mean 90 Pulse Ox 96 86 Oxygen Delivery Method Nasal Cannula Nasal Cannula Nasal Cannula Oxygen Flow Rate (L/min) 2 2 2 02/03/23 12:03 02/03/23 12:45 02/03/23 12:42 Temperature Temperature Source Pulse Rate 142 H 200 H Respiratory Rate 33 H Respiratory Effort Respiratory Pattern Blood Pressure 140/100 H 150/92 H Blood Pressure Mean 113 111 Pulse Ox 95 96 78 Oxygen Delivery Method Nasal Cannula Bi-pap Non-Rebreather Oxygen Flow Rate (L/min) 4 10 02/03/23 12:40 02/03/23 12:50 02/03/23 12:53 Temperature Temperature Source Pulse Rate 141 H 140 H Respiratory Rate 32 H Respiratory Effort Respiratory Pattern Blood Pressure 157/95 H 140/100 H Blood Pressure Mean 115 Pulse Ox 78 100 Oxygen Delivery Method Nasal Cannula Bi-pap Oxygen Flow Rate (L/min) 6 Weight Weight: 75.9 kg Body Mass Index (BMI) 30.6 Physical Exam Narrative GENERAL: Dyspneic on BiPAP HEENT: Atraumatic; normocephalic EYES; Anicteric, Normal Conjunctiva NECK; supple, normal thyroid, RESPIRATORY: Diminished to auscultation, tachypneic CARDIOVASCULAR: Regular S1 S2, tachycardic GI: soft, normoactive bowel sounds, : No Renal angle tenderness; EXTREMITIES: edema, no clubbing, MUSCULOSKELETAL: no muscle wasting NEURO: no lateralizing signs. SKIN: No Rash PSYCH; Flat affect Results Lab / Micro Data Result Diagrams: 02/03/23 10:15 02/03/23 10:15 Labs: Laboratory Results - last 24 hr 02/03/23 10:15: B-Natriuretic Peptide 1527.0 H 02/03/23 10:15: WBC 11.1 H, RBC 3.48 L, Hgb 10.9 L, Hct 33.1 L, MCV 95.1, MCH 31.3, MCHC 32.9, RDW Std Deviation 46.7 H, RDW Coeff of Tanya 13.5, Plt Count 282, MPV 9.4, Immature Gran % (Auto) 0.400, Neut % (Auto) 79.3 H, Lymph % (Auto) 10.8 L, [place] % (Auto) 9.0, Eos % (Auto) 0.1, Baso % (Auto) 0.4, Absolute Neuts (auto) 8.8 H, Absolute Lymphs (auto) 1.20, Nucleated RBC % 0 02/03/23 10:15: Sodium 140, Potassium 3.3 L, Chloride 106, Carbon Dioxide 25.0, Anion Gap 9, BUN 15, Creatinine 0.89, Estim Creat Clear Calc 41.87, Est GFR (MDRD) Af Amer 79, Est GFR (MDRD) Non-Af 65, BUN/Creatinine Ratio 16.9, Glucose 110 H, Calcium 9.3 Micro: Microbiology 02/03/23 10:30 Nasal Secretion SARS-CoV-2 Antigen (Rapid) - Final Radiology Impression Chest X-Ray 02/03/23 11:10 IMPRESSION: Mild cardiomegaly and CHF. Electronically Signed: Roge Murray MD at 11:55 EDT , Assessment & Plan Assessment/Plan (1) Acute respiratory failure with hypoxia: (2) Acute congestive heart failure: PLAN: Plan Patient is a 77-year-old lady presented with exertional dyspnea 1. Acute hypoxic respiratory failure ? Patient was found to be markedly dyspneic and hypoxic in the emergency department had to be placed on BiPAP admitted to the intensive care unit with consultation placed to pulmonary medicine 2. Acute on chronic congestive heart failure with reduced ejection fraction ? Patient admitted to the intensive care unit placed on BiPAP with oxygen being titrated to keep saturation greater than 90. Patient was also started on nitroglycerin drip in addition to furosemide. Was placed on strict input and output, daily weight low-sodium diet and daily BMPs ordered. Patient echo obtained on 08/02/2021 demonstrated EF of 15% repeat echo ordered 3. Hypertension - Blood pressure controlled, home medications continued with dose adjustment as needed 4. DVT prophylaxis ? Placed on Lovenox Time spent in the patient's overall evaluation,decision-making process, review of diagnostic data, adjustment of management, discussion with other providers, nursing nursing and ancillary staff involved in patient's care documentation, 75 Minutes Advance planning; did discuss with the patient patient's regarding advanced directives as well as CODE STATUS. Did explain the various scenarios involved ( FULL CODE, DNR CCA, DNR CCA with no intubation, and DNR CC and what each meant) patient's elected for patient to remain full code with CPR and intubation if needed. Order was placed. Time spent on discussion 18 minutes. Charges/Coding Visit Charges Inpatient E&M: 17237 Init Hosp L3 Procedures Hospitalists Procedures: 01609 Advncd Care Plan 30 Min
--- NOTE | 2023-02-03 13:15 | NURSING ---
ICU [facility] CHF, HYPOXIA, TRANSIENT DYSRHYTHMIA
--- NOTE | 2023-02-03 13:28 | NURSING ---
CV ICU 203
--- NOTE | 2023-02-03 13:55 | ED.RN ---
report called to icu [facility] with no quesions voiced.
--- NOTE | 2023-02-03 14:10 | ECHOD_ITS ---
Reason For Study: DYSPNEA/SOB Procedure This was a 2D Doppler, Color Flow transthoracic echocardiogram. The study was technically difficult. Exam performed in department. Left Ventricle Moderately dilated left ventricle. The left ventricular ejection fraction is 15 %. Right Ventricle Normal right ventricle. Atria The left atrium is moderately enlarged. Normal right atrium. Mitral Valve Severe mitral annular calcification. Mild (1+) mitral valve insufficiency. Tricuspid Valve Trivial tricuspid valve insufficiency. Unable to estimate RV systolic pressure due to insufficient tricuspid regurgitant envelope. Aortic Valve There is no aortic stenosis. No aortic valve insufficiency. Pulmonic Valve The pulmonic valve is not well visualized. Trivial pulmonic valve insufficiency. Great Vessels Normal sized aortic root. The inferior vena cava is dilated. Pericardium/Pleural Small pericardial effusion. MMode/2D Measurements & Calculations LVIDd: 6.3 cm IVSd: 0.87 cm Ao root diam: 3.1 cm LVIDs: 5.2 cm LVPWd: 0.87 cm RVDd: 2.5 cm FS: 18.5 % LAV(MOD-bp): 62.5 ml LVAd ap4: 43.0 cm2 LVAd ap2: 39.9 cm2 LAV(MOD-bp) Indexed: 35.3 ml/m2 LVLd ap4: 9.1 cm LVLd ap2: 8.8 cm LAV(MOD-sp2): 69.4 ml EDV(MOD-sp4): 170.3 ml EDV(MOD-sp2): 153.9 ml LAV(MOD-sp4): 55.7 ml EDV(sp4-el): 173.3 ml EDV(sp2-el): 153.4 ml LVAs ap4: 37.3 cm2 LVAs ap2: 34.0 cm2 LVLs ap4: 8.9 cm LVLs ap2: 8.2 cm ESV(MOD-sp4): 131.8 ml ESV(MOD-sp2): 119.4 ml ESV(sp4-el): 132.2 ml ESV(sp2-el): 119.9 ml EF(MOD-sp4): 22.6 % EF(MOD-sp2): 22.4 % EF(sp4-el): 23.7 % SV(MOD-sp4): 38.5 ml SV(MOD-sp2): 34.5 ml SV(sp4-el): 41.1 ml LA dimension(2D): 4.1 cm LA A4 area: 19.4 cm2 RA A4 area: 11.8 cm2 Doppler Measurements & Calculations MV E max richie: 117.0 cm/sec Ao V2 max: 141.7 cm/sec LV V1 max: 72.4 cm/sec Ao max P.3 mmHg LV V1 max P.1 mmHg Ao V2 mean: 107.3 cm/sec LV V1 mean P.2 mmHg Ao mean P.1 mmHg LV V1 mean: 52.3 cm/sec Ao V2 VTI: 24.4 cm LV V1 VTI: 10.9 cm AV (velocity ratio): 0.45 PA V2 max: 71.9 cm/sec PA V2 mean: 57.3 cm/sec ECHO/Echo Complete Interpretation Summary Moderately dilated left ventricle. The left ventricular ejection fraction is 15 %. The left atrium is moderately enlarged. Severe mitral annular calcification. Mild (1+) mitral valve insufficiency. The inferior vena cava is dilated Small pericardial effusion. Ordering Physician: Kaushal Souza Referring Physician: Toni Lafleur Performed By: Ofelia Hernandez, JOSUE, RVT
--- NOTE | 2023-02-03 14:45 | CASEMGMT ---
RN?CM?ASSESSMENT Pt w/BIPAP mask on. RN CM met w/ in waiting room. Introduced self and role. agreeable to talking w/RN CM. Care providers, pharmacy, and demographics verified/updated at this time. PCP: Dr Toni Lafleur Specialists: [facility]/Cardiology Preferred Pharmacy:[facility] Retail Insurance:[facility] Prescription Benefit:?none Living Will/HPOA:?Pt does not currently have LW/HCPOA LNOK: , Bon. 11 living children. The only phone number provided by is [phone] and states can only leave a VM on that number. He states he goes to the backyard to check messages and will check it periodically. He denies having any other number to list for emergencies. Living Arrangements: Lives w/her and special-needs dtr in one-story home w/3 steps to enter. Pt indep w/ADL's at baseline and able to prepare meals. Dtr lives next door and does the laundry. Transportation: Hire drivers, [facility] Van DME: Pt has the following DME: RTS and grab bars, BP machine, pulse ox, cane. Pt has a walker available, but does not use. No Home O2. Verbal review of DME companies w/ and he states has no preference. Made aware Katelynn is affiliated w/[facility] and he states okay w/Katelynn. Discussed home O2 set-up process, should she qualify for home O2 @ d/c. They do have a generator in the home. states no need for further DME at this time.? HHC/SNF: No hx of either. CM?to follow for home oxygen needs and any further discharge planning/needs.? voices no further concerns/needs at this time.? Advised to ask for?CM?if any further questions/concerns/needs arise.? Voices understanding. PLAN:??Home w/spousal support and discharge plans in place. Follow for possible HHC or Home O2 @ d/c. Azalea ARREOLAN?RN?CM
[2023-02-03] MEDS: Nitroglycerin Infusion 250 ML 3 MG IV (15:06)
[2023-02-03 15:33] LABS: Troponin-I HS 29 pg/mL (3.0-54.0)
[2023-02-03] MEDS: TITRATION PARAMETER CHANGE 1 EACH IV (15:39)
[2023-02-03 17:31] LABS: Troponin-I HS 37 pg/mL (3.0-54.0)
[2023-02-03 21:13] LABS: Troponin-I HS 34 pg/mL (3.0-54.0)
[2023-02-04] VITALS (16 sets, daily range): BP systolic 101–122; BP diastolic 53–91; PULSE 82–118; RESP 18–26; TEMP 36.1–36.8; O2SAT 90–99; BMI 29.3
[2023-02-04 04:27] LABS: Absolute Lymphocyte Count 1.51 X10^3/uL (0.83-4.51); Absolute Neutrophil Count 6.6 X10^3/uL (2.0-7.7); Basophil# 0.02 X10^3/uL; Basophil% 0.2 % (0-1); Eosinophil# 0.02 X10^3/uL; Eosinophils% 0.2 % (0-5); Hematocrit 32.2 % (37-47); Hemoglobin 10.9 g/dL (12.0-15.0); Lymphocyte # 1.51 X10^3/ul (0.83-4.51); Lymphocyte % 16.4 % (19-41); Mean Corp Hgb Conc 33.9 g/dL (32-36); Mean Corpuscular Hgb 31.7 pg (27.0-32.0); Mean Corpuscular Volume 93.6 fL (81-99); Mean Platelet Vol. 9.8 fl (6.2-12.0); Monocyte# 1.02 X10^3/uL; Monocyte% 11.1 % (0-10); NRBC Flagged by Analyzer 0 % (0-5); Neutrophil # 6.61 X10^3/uL (2.7-7.7); Neutrophil % 71.7 % (47-70); Platelet Count 292 K/mm3 (150-450); RBC Distribution Width CV 13.6 % (11.6-14.6); RBC Distribution Width SD 46.2 fl (35.1-43.9); Red Blood Count 3.44 M/mm3 (4.2-5.4); White Blood Count 9.2 K/mm3 (4.4-11.0)
[2023-02-04 04:41] LABS: Anion Gap 7 (5-15); BUN 18 mg/dL (7-18); BUN/Creat Ratio 23.6 RATIO (10-20); Calcium,Total 8.5 mg/dL (8.5-10.1); Chloride 104 mmol/L (98-107); Creatinine, Serum 0.76 mg/dL (0.55-1.02); EST Glomerular Filtration Rate 78 mL/min (>60); Est Glom Filt Rate - Afr Amer 94 mL/min (>60); Estimated Creatinine Clearance 38.97 ml/min; Glucose 118 mg/dL (74-106); Magnesium 1.5 mg/dL (1.6-2.6); Phosphorus 2.3 mg/dL (2.5-4.9); Potassium 3.1 mmol/L (3.5-5.1); Sodium Level 142 mmol/L (136-145)
[2023-02-04] MEDS: Furosemide 40 MG/4 ML Vial IV ×3 (06:35→20:46)
--- NOTE | 2023-02-04 07:14 | PN.HOSP_ITS ---
Reason for Visit Reason for Visit: Diagnoses Heart failure, unspecified (02/03/23) Acute respiratory failure with hypoxia (02/03/23) Subjective Subjective Patient is a 77-year-old female with known congestive heart failure with reduced ejection fraction who presented with exertional dyspnea. An assessment of acute CHF made admitted to the intensive care unit for further management. Patient was started on furosemide as well as nitroglycerin. Nitroglycerin drip has since been weaned off. Objective Data Objective Data Vital Signs: Vital Signs Temp Pulse Resp BP Pulse Ox O2 Del Method O2 Flow Rate 97 F L 99 23 H 122/67 H 96 Nasal Cannula 2 02/04/23 04:00 02/04/23 07:00 02/04/23 07:00 02/04/23 07:00 02/04/23 07:00 02/04/23 07:00 02/04/23 07:00 FiO2 35 02/03/23 23:26 Oxygen Flow Rate (L/min) 2 Oxygen Delivery Method Nasal Cannula Weight: 75.1 kg Body Mass Index (BMI) 29.3 Intake & Output: Intake and Output for Last 24 Hours 02/02/23 02/03/23 02/04/23 23:59 23:59 23:59 Intake Total 3.45 / 3.45 Output Total 1100 / 1100 0 / 0 Balance -1096.55 / -1096.55 0 / 0 Lab / Micro Data Result Diagrams: 02/04/23 04:12 02/04/23 04:12 Labs: Laboratory Results - last 24 hr 02/03/23 10:15: B-Natriuretic Peptide 1527.0 H 02/03/23 10:15: WBC 11.1 H, RBC 3.48 L, Hgb 10.9 L, Hct 33.1 L, MCV 95.1, MCH 31.3, MCHC 32.9, RDW Std Deviation 46.7 H, RDW Coeff of Tanya 13.5, Plt Count 282, MPV 9.4, Immature Gran % (Auto) 0.400, Neut % (Auto) 79.3 H, Lymph % (Auto) 10.8 L, [place] % (Auto) 9.0, Eos % (Auto) 0.1, Baso % (Auto) 0.4, Absolute Neuts (auto) 8.8 H, Absolute Lymphs (auto) 1.20, Nucleated RBC % 0 02/03/23 10:15: Sodium 140, Potassium 3.3 L, Chloride 106, Carbon Dioxide 25.0, Anion Gap 9, BUN 15, Creatinine 0.89, Estim Creat Clear Calc 41.87, Est GFR (MDRD) Af Amer 79, Est GFR (MDRD) Non-Af 65, BUN/Creatinine Ratio 16.9, Glucose 110 H, Calcium 9.3 02/03/23 15:03: Troponin I High Sens 29 02/03/23 16:57: Troponin I High Sens 37 02/03/23 20:43: Troponin I High Sens 34 02/04/23 04:12: WBC 9.2, RBC 3.44 L, Hgb 10.9 L, Hct 32.2 L, MCV 93.6, MCH 31.7, MCHC 33.9, RDW Std Deviation 46.2 H, RDW Coeff of Tanya 13.6, Plt Count 292, MPV 9.8, Immature Gran % (Auto) 0.400, Neut % (Auto) 71.7 H, Lymph % (Auto) 16.4 L, [place] % (Auto) 11.1 H, Eos % (Auto) 0.2, Baso % (Auto) 0.2, Absolute Neuts (auto) 6.6, Absolute Lymphs (auto) 1.51, Nucleated RBC % 0 02/04/23 04:12: Sodium 142, Potassium 3.1 L, Chloride 104, Carbon Dioxide 31.0, Anion Gap 7, BUN 18, Creatinine 0.76, Estim Creat Clear Calc 38.97, Est GFR (MDRD) Af Amer 94, Est GFR (MDRD) Non-Af 78, BUN/Creatinine Ratio 23.6 H, Glucose 118 H, Calcium 8.5, Phosphorus 2.3 L, Magnesium 1.5 L Micro: Microbiology 02/03/23 10:30 Nasal Secretion SARS-CoV-2 Antigen (Rapid) - Final Radiography Diagnostic Testing: Radiology Impression Chest X-Ray 02/03/23 11:10 IMPRESSION: Mild cardiomegaly and CHF. Electronically Signed: Roge Murray MD at 11:55 EDT , Physical Exam Narrative GENERAL: Dyspneic at rest HEENT: Atraumatic; normocephalic EYES; Anicteric, Normal Conjunctiva NECK; supple, normal thyroid, RESPIRATORY: Diminished to auscultation, tachypneic CARDIOVASCULAR: Regular S1 S2, tachycardic GI: soft, normoactive bowel sounds, : No Renal angle tenderness; EXTREMITIES: edema, no clubbing, MUSCULOSKELETAL: no muscle wasting NEURO: no lateralizing signs. SKIN: No Rash PSYCH; Flat affect Assessment & Plan Assessment/Plan (1) Acute respiratory failure with hypoxia: (2) Acute congestive heart failure: PLAN: Plan Patient is a 77-year-old lady presented with exertional dyspnea 1. Acute hypoxic respiratory failure ? Patient was found to be markedly dyspneic and hypoxic in the emergency department had to be placed on BiPAP admitted to the intensive care unit with consultation placed to pulmonary medicine ? 02/04/2023 patient BiPAP has since been weaned off placed on supplemental oxygen via nasal cannula 2. Acute on chronic congestive heart failure with reduced ejection fraction ? Patient admitted to the intensive care unit placed on BiPAP with oxygen being titrated to keep saturation greater than 90. Patient was also started on nitroglycerin drip in addition to furosemide. Was placed on strict input and output, daily weight low-sodium diet and daily BMPs ordered. Patient echo obtained on 08/02/2021 demonstrated EF of 15% repeat echo ordered ? 02/04/2023 scheduled to undergo further evaluation with a 2D echo 3. Hypertension - Blood pressure controlled, home medications continued with dose adjustment as needed 4. Hypokalemia ? Secondary to diuretic therapy corrected per protocol patient is on Aldactone at home resumed 5. DVT prophylaxis ? Placed on Lovenox Time spent in the patient's overall evaluation,decision-making process, review of diagnostic data, adjustment of management, discussion with other providers, nursing nursing and ancillary staff involved in patient's care documentation, 50 minutes Charges/Coding Visit Charges Inpatient E&M: 86003 [place] [id number]
[2023-02-04] MEDS: Potassium Chloride Oral Tablet 20 MEQ 40 MEQ PO (10:22)
[2023-02-04] MEDS: Labetalol 200 MG Tablet PO ×2 (10:22→20:48)
[2023-02-04] MEDS: Spironolactone 25 MG Tablet PO ×2 (10:22→20:47)
[2023-02-04] MEDS: Na Biphos/Potassium Phosphate PACKET 1 PACKET PO ×2 (14:56→20:47)
[2023-02-04] MEDS: Magnesium Chloride 64 MG Delay Rel.Tablet 128 MG PO ×2 (14:56→20:46)
[2023-02-04] MEDS: 0.9% Saline Lock 10 ML Syringe IV (20:52)
--- NOTE | 2023-02-04 23:42 | CPS ---
Patient refused PAP therapy for the night. On RA.
[2023-02-05 03:07] VITALS: BP 99/65; PULSE 85; RESP 16; TEMP 36.8; O2SAT 94
[2023-02-05 03:13] VITALS: O2SAT 94
[2023-02-05 05:18] VITALS: BMI 29.2
[2023-02-05] MEDS: Furosemide 40 MG/4 ML Vial IV ×2 (06:28→14:02)
[2023-02-05] MEDS: 0.9% Saline Lock 10 ML Syringe IV ×2 (06:36→14:02)
[2023-02-05 06:38] LABS: Absolute Lymphocyte Count 1.79 X10^3/uL (0.83-4.51); Absolute Neutrophil Count 5.7 X10^3/uL (2.0-7.7); Basophil# 0.04 X10^3/uL; Basophil% 0.5 % (0-1); Eosinophil# 0.05 X10^3/uL; Eosinophils% 0.6 % (0-5); Hematocrit 35.6 % (37-47); Hemoglobin 11.8 g/dL (12.0-15.0); Lymphocyte # 1.79 X10^3/ul (0.83-4.51); Lymphocyte % 20.3 % (19-41); Mean Corp Hgb Conc 33.1 g/dL (32-36); Mean Corpuscular Hgb 30.7 pg (27.0-32.0); Mean Corpuscular Volume 92.7 fL (81-99); Mean Platelet Vol. 9.8 fl (6.2-12.0); Monocyte# 1.17 X10^3/uL; Monocyte% 13.3 % (0-10); NRBC Flagged by Analyzer 0 % (0-5); Neutrophil # 5.71 X10^3/uL (2.7-7.7); Neutrophil % 64.8 % (47-70); Platelet Count 358 K/mm3 (150-450); RBC Distribution Width CV 13.7 % (11.6-14.6); RBC Distribution Width SD 46.3 fl (35.1-43.9); Red Blood Count 3.84 M/mm3 (4.2-5.4); White Blood Count 8.8 K/mm3 (4.4-11.0)
[2023-02-05 07:04] LABS: Anion Gap 8 (5-15); BUN 28 mg/dL (7-18); BUN/Creat Ratio 29.9 RATIO (10-20); Calcium,Total 9.4 mg/dL (8.5-10.1); Chloride 103 mmol/L (98-107); Creatinine, Serum 0.94 mg/dL (0.55-1.02); EST Glomerular Filtration Rate 61 mL/min (>60); Est Glom Filt Rate - Afr Amer 74 mL/min (>60); Estimated Creatinine Clearance 41.46 ml/min; Glucose 111 mg/dL (74-106); Potassium 3.6 mmol/L (3.5-5.1); Sodium Level 140 mmol/L (136-145)
--- NOTE | 2023-02-05 07:50 | PN.HOSP_ITS ---
Reason for Visit Reason for Visit: Diagnoses Heart failure, unspecified (02/03/23) Acute respiratory failure with hypoxia (02/03/23) Subjective Subjective Patient seen breathing significantly improved. Patient back on nasal cannula. 2D echo demonstrated dilated IVC ordered D-dimer which came back elevated CT of the chest to rule out thromboembolism subsequently ordered Objective Data Objective Data Vital Signs: Vital Signs Temp Pulse Resp BP Pulse Ox O2 Del Method O2 Flow Rate 98.2 F 85 16 99/65 94 Room Air 2 02/05/23 03:07 02/05/23 03:07 02/05/23 03:07 02/05/23 03:07 02/05/23 03:13 02/05/23 03:13 02/04/23 08:00 FiO2 35 02/03/23 23:26 Oxygen Flow Rate (L/min) 2 Oxygen Delivery Method Room Air Weight: 74.9 kg Body Mass Index (BMI) 29.2 Intake & Output: Intake and Output for Last 24 Hours 02/03/23 02/04/23 02/05/23 23:59 23:59 23:59 Intake Total 3.45 / 3.45 197.25 / 197.25 30 / 30 Output Total 1100 / 1100 300 / 300 200 / 200 Balance -1096.55 / -1096.55 -102.75 / -102.75 -170 / -170 Lab / Micro Data Result Diagrams: 02/05/23 06:13 02/05/23 06:13 Labs: Laboratory Results - last 24 hr 02/05/23 06:13: WBC 8.8, RBC 3.84 L, Hgb 11.8 L, Hct 35.6 L, MCV 92.7, MCH 30.7, MCHC 33.1, RDW Std Deviation 46.3 H, RDW Coeff of Tanya 13.7, Plt Count 358, MPV 9.8, Immature Gran % (Auto) 0.500, Neut % (Auto) 64.8, Lymph % (Auto) 20.3, [place] % (Auto) 13.3 H, Eos % (Auto) 0.6, Baso % (Auto) 0.5, Absolute Neuts (auto) 5.7, Absolute Lymphs (auto) 1.79, Nucleated RBC % 0 02/05/23 06:13: Sodium 140, Potassium 3.6, Chloride 103, Carbon Dioxide 29.0, A nion Gap 8, BUN 28 H, Creatinine 0.94, Estim Creat Clear Calc 41.46, Est GFR (MDRD) Af Amer 74, Est GFR (MDRD) Non-Af 61, BUN/Creatinine Ratio 29.9 H, Glucose 111 H, Calcium 9.4 Micro: Microbiology 02/03/23 10:30 Nasal Secretion SARS-CoV-2 Antigen (Rapid) - Final Radiography Diagnostic Testing: Radiology Impression Echocardiogram 02/03/23 14:10 Interpretation Summary Moderately dilated left ventricle. The left ventricular ejection fraction is 15 %. The left atrium is moderately enlarged. Severe mitral annular calcification. Mild (1+) mitral valve insufficiency. The inferior vena cava is dilated Small pericardial effusion. Ordering Physician: Kaushal Souza Referring Physician: Toni Lafleur Performed By: Ofelia Hernandez, HIROCS, RVT Physical Exam Narrative GENERAL: Dyspneic at rest HEENT: Atraumatic; normocephalic EYES; Anicteric, Normal Conjunctiva NECK; supple, normal thyroid, RESPIRATORY: Diminished to auscultation, tachypneic CARDIOVASCULAR: Regular S1 S2, tachycardic GI: soft, normoactive bowel sounds, : No Renal angle tenderness; EXTREMITIES: edema, no clubbing, MUSCULOSKELETAL: no muscle wasting NEURO: no lateralizing signs. SKIN: No Rash PSYCH; Flat affect Assessment & Plan Assessment/Plan (1) Acute respiratory failure with hypoxia: (2) Acute congestive heart failure: PLAN: Plan Patient is a 77-year-old lady presented with exertional dyspnea 1. Acute hypoxic respiratory failure ? Patient was found to be markedly dyspneic and hypoxic in the emergency department had to be placed on BiPAP admitted to the intensive care unit with consultation placed to pulmonary medicine ? 02/04/2023 patient BiPAP has since been weaned off placed on supplemental oxygen via nasal cannula 2. Acute on chronic congestive heart failure with reduced ejection fraction ? Patient admitted to the intensive care unit placed on BiPAP with oxygen being titrated to keep saturation greater than 90. Patient was also started on nitroglycerin drip in addition to furosemide. Was placed on strict input and output, daily weight low-sodium diet and daily BMPs ordered. Patient echo obtained on 08/02/2021 demonstrated EF of 15% repeat echo ordered ? 02/04/2023 scheduled to undergo further evaluation with a 2D echo Moderately dilated left ventricle. The left ventricular ejection fraction is 15 %. The left atrium is moderately enlarged. Severe mitral annular calcification. Mild (1+) mitral valve insufficiency. The inferior vena cava is dilated Small pericardial effusion. 3. Elevated D-dimer D-dimer was ordered as a result of patient inferior vena cava which was reported as being dilated. Subsequently ordered CTA to rule out VTE 4. Hypertension - Blood pressure controlled, home medications continued with dose adjustment as needed 5. Hypokalemia ? Secondary to diuretic therapy corrected per protocol patient is on Aldactone at home resumed 6 DVT prophylaxis ? Placed on Lovenox Time spent in the patient's overall evaluation,decision-making process, review of diagnostic data, adjustment of management, discussion with other providers, nursing nursing and ancillary staff involved in patient's care documentation, 35 minutes Charges/Coding Visit Charges Inpatient E&M: 56716 Subs Hosp L2
[2023-02-05] MEDS: Spironolactone 25 MG Tablet PO (08:12)
[2023-02-05] MEDS: Na Biphos/Potassium Phosphate PACKET 1 PACKET PO (08:13)
[2023-02-05] MEDS: Magnesium Chloride 64 MG Delay Rel.Tablet 128 MG PO (08:13)
[2023-02-05] MEDS: Labetalol 200 MG Tablet PO (08:14)
[2023-02-05 09:14] VITALS: BP 111/68; PULSE 112; RESP 14; TEMP 36.6; O2SAT 93
[2023-02-05 09:22] LABS: D-Dimer Quantitative (DVT/PE) 4.96 FEU/ug/m (0.27-0.49)
--- NOTE | 2023-02-05 10:45 | CT_ITS ---
STUDY: CTA CHEST REASON FOR EXAM: Female, 77 years old. Dyspnea, elevated D-dimer RADIATION DOSAGE (If Supplied By Facility): CTDIvol = ( 16.43 ) mGy, DLP = ( 273.03 ) mGycm TECHNIQUE: The examination was performed with the intravenous administration of IV 75mL Isovue-370. Post-processing of the angiographic images was performed, with multiplanar reformation and 3D reconstruction. Individualized dose optimization techniques were used for this CT. COMPARISON: FINDINGS: Normal enhancement of the main pulmonary artery and right and left pulmonary arteries. Normal enhancement of the bilateral peripheral pulmonary arteries. There is no demonstrated pulmonary embolism. Normal thoracic aorta and visualized great vessels. There is no demonstrated aortic dissection. Mild cardiomegaly. Small pericardial effusion versus mild pericardial thickening anterior cardiac silhouette. Normal mediastinum. Normal hilar regions. Normal visualized trachea and bronchi. The lungs are well expanded. There are hazy groundglass infiltrates within the central lungs bilaterally. These appear to spare the periphery of both lungs. Mild bibasilar fibrosis. Moderate consolidation posterior basilar segment right lower lobe. Small right effusion. Normal chest wall structures. Normal osseous structures. Normal visualized upper abdomen. CT/CTA Chest W/WO Contrast IMPRESSION: No demonstrated pulmonary embolism or arterial dissection. Moderate right lower lobe infiltrate with small right pleural effusion. Cardiomegaly with small effusion versus pericardial thickening anterior cardiac silhouette. Hazy groundglass infiltrates within the central lungs bilaterally. Electronically Signed: Evgeny Nolen MD, ANA at 14:04 EDT ,
--- NOTE | 2023-02-05 14:11 | PCM.DC.SUM ---
Providers Date of Admission: 02/03/23 Date of Discharge: 02/05/23 Primary Care Physician: Dr. Toni Lafleur, Reason For Visit: CHF, RESPIRATORY FAILURE Diagnosis Discharge Diagnosis (1) Acute respiratory failure with hypoxia: Status: Acute Code(s): J96.01 - Acute respiratory failure with hypoxia (2) Acute congestive heart failure: Status: Acute Code(s): I50.9 - Heart failure, unspecified Plan Patient is a 77-year-old lady presented with exertional dyspnea 1. Acute hypoxic respiratory failure ? Patient was found to be markedly dyspneic and hypoxic in the emergency department had to be placed on BiPAP admitted to the intensive care unit with consultation placed to pulmonary medicine ? 02/04/2023 patient BiPAP has since been weaned off placed on supplemental oxygen via nasal cannula 2. Acute on chronic congestive heart failure with reduced ejection fraction ? Patient admitted to the intensive care unit placed on BiPAP with oxygen being titrated to keep saturation greater than 90. Patient was also started on nitroglycerin drip in addition to furosemide. Was placed on strict input and output, daily weight low-sodium diet and daily BMPs ordered. Patient echo obtained on 08/02/2021 demonstrated EF of 15% repeat echo ordered ? 02/04/2023 scheduled to undergo further evaluation with a 2D echo Moderately dilated left ventricle. The left ventricular ejection fraction is 15 %. The left atrium is moderately enlarged. Severe mitral annular calcification. Mild (1+) mitral valve insufficiency. The inferior vena cava is dilated Small pericardial effusion. 3. Elevated D-dimer D-dimer was ordered as a result of patient inferior vena cava which was reported as being dilated. Subsequently ordered CTA to rule out VTE 4. Hypertension - Blood pressure controlled, home medications continued with dose adjustment as needed 5. Hypokalemia ? Secondary to diuretic therapy corrected per protocol patient is on Aldactone at home resumed 6 DVT prophylaxis ? Placed on Lovenox Time spent in the patient's overall evaluation,decision-making process, review of diagnostic data, adjustment of management, discussion with other providers, nursing nursing and ancillary staff involved in patient's care documentation, 35 minutes Medications at Discharge Home Medications labetalol 200 mg tablet 200 mg PO BID BLOOD PRESSURE 02/03/23 lisinopril 10 mg tablet 10 mg PO DAILY BLOOD PRESSURE 02/03/23 spironolactone 25 mg tablet 25 mg PO BID BLOOD PRESSURE 02/03/23 furosemide 40 mg tablet 40 mg PO BIDCM FLLUID #120 tabs 02/05/23 Hospital Course Procedures 2-D Echocardiogram Summary of Care Provided Minutes Spent on Discharge: 35 Physical Exam Narrative GENERAL: In no apparent distress HEENT: Atraumatic; normocephalic EYES; Anicteric, Normal Conjunctiva NECK; supple, normal thyroid, RESPIRATORY: Diminished to auscultation, CARDIOVASCULAR: Regular S1 S2, GI: soft, normoactive bowel sounds, : No Renal angle tenderness; EXTREMITIES: edema, no clubbing, MUSCULOSKELETAL: no muscle wasting NEURO: no lateralizing signs. SKIN: No Rash PSYCH; Flat affect Weight / BMI Weight Weight: 74.9 kg Body Mass Index (BMI) 29.2 ABG / Lab / Microbiology Data Result Diagrams: 02/05/23 06:13 02/05/23 06:13 Laboratory: Laboratory Results - last 24 hr 02/05/23 06:13: WBC 8.8, RBC 3.84 L, Hgb 11.8 L, Hct 35.6 L, MCV 92.7, MCH 30.7, MCHC 33.1, RDW Std Deviation 46.3 H, RDW Coeff of Tanya 13.7, Plt Count 358, MPV 9.8, Immature Gran % (Auto) 0.500, Neut % (Auto) 64.8, Lymph % (Auto) 20.3, Bladen % (Auto) 13.3 H, Eos % (Auto) 0.6, Baso % (Auto) 0.5, Absolute Neuts (auto) 5.7, Absolute Lymphs (auto) 1.79, Nucleated RBC % 0 02/05/23 06:13: Sodium 140, Potassium 3.6, Chloride 103, Carbon Dioxide 29.0, Anion Gap 8, BUN 28 H, Creatinine 0.94, Estim Creat Clear Calc 41.46, Est GFR (MDRD) Af Amer 74, Est GFR (MDRD) Non-Af 61, BUN/Creatinine Ratio 29.9 H, Glucose 111 H, Calcium 9.4 02/05/23 08:24: D-Dimer Quant (PE/DVT) 4.96 H* Microbiology: Microbiology 02/03/23 10:30 Nasal Secretion SARS-CoV-2 Antigen (Rapid) - Final Radiography Diagnostic Testing: Radiology Impression Chest CTA 06/03/23 10:45 IMPRESSION: No demonstrated pulmonary embolism or arterial dissection. Moderate right lower lobe infiltrate with small right pleural effusion. Cardiomegaly with small effusion versus pericardial thickening anterior cardiac silhouette. Hazy groundglass infiltrates within the central lungs bilaterally. Electronically Signed: Evgeny Nolen MD, ANA at 14:04 EDT Reading Location ID and State: [address] [place] [address] Tel , Service support , D/C Instructions Discharge Diet: 6 Cup Fluid Restriction and 2000 mg Sodium Diet Discharge Activity: Return to Normal Activity Call your doctor if you observe: Fever of 101 or Higher, Shortness of breath, Fainting spells and Chest pain Meaningful Use Info Meaningful Use Diagnoses (Choose all that apply): CHF CHF ESTEPHANIA/ARB ordered at discharge?: Yes Documented LVEF (%): 15 Discharge Plan Admission Admit Date/Time: 02/03/23 12:45 Attending Provider: Kauhsal Souza Primary Care Provider: Toni Lafleur Discharge Orders/Prescriptions Prescriptions: Continued labetalol 200 MG tablet 200 mg PO BID spironolactone 25 mg tablet 25 mg PO BID lisinopril 10 mg tablet 10 mg PO DAILY Changed furosemide 40 mg tablet 40 mg PO BIDCM Qty: 120 0RF Referrals / Follow Up: Toni Lafleur DO [Primary Care Provider] - Disposition Disposition (needs filled in before D/C Order can be placed): Home, Self Care Charges/Coding Visit Charges Inpatient E&M: 89234 Init Hosp L3
[2023-02-05 15:15] VITALS: BP 98/66; PULSE 102; RESP 12; TEMP 36.6; O2SAT 98
[2023-02-05 16:49] VITALS: O2SAT 98
== END 2023-02-05 16:45 | disposition home or self-care (01) | DRG 291 ==
LOC: ED 12:18 → ICU 13:28 → PCU 02-04 12:53
PROVIDERS: Admitting Provider Internal Medicine; Emergency Provider Emergency Medicine; PCP Family Medicine; Visit Provider Internal Medicine
DX: I11.0 Hypertensive heart disease with heart failure (principal); J96.01 Acute respiratory failure with hypoxia; I50.23 Acute on chronic systolic (congestive) heart failure; I42.8 Other cardiomyopathies; E87.6 Hypokalemia; R79.1 Abnormal coagulation profile; Z79.899 Other long term (current) drug therapy
CPT/HCPCS: 36415; 71045; 71275; 80048; 83735; 83880; 84100; 84484; 85025; 85379; 87811; 93005; 93306; 94002; 94668; 94760; 99252; 99284; J7030; Q9967; A4216; G0463; J0153; J1940

== ENCOUNTER 2023-05-16 12:36 | Inpatient (IN) | payer OTHER, SELFPAY ==
[2023-05-16] VITALS (14 sets, daily range): BP systolic 123–153; BP diastolic 67–108; PULSE 71–95; RESP 10–20; TEMP 35.9–36.6; O2SAT 82–100; BMI 29.1
--- NOTE | 2023-05-16 13:09 | EDS_ITS ---
HPI <GERBER Brown - Last Filed: 05/16/23 18:59> History of Present Illness Chief Complaint: Abd Pain Narrative Narrative: Patient presenting today due to periumbilical abdominal pain that started this morning when she woke up. She reports that the pain is severe, she is nauseous, she has not had any vomiting. She does have a history of diverticulitis. She had 2 loose stools this morning. Past abdominal surgeries include cholecystectomy and appendectomy. PMH includes hypertension, CHF, and cardiomyopathy. She denies any fever, chills, blood in the stool, and urinary symptoms. PFSH <GERBER Brown - Last Filed: 05/16/23 18:59> PFSH Medical History Abnormal electrocardiogram Acute exacerbation of CHF (congestive heart failure) Acute hypoxemic respiratory failure Acute respiratory distress Acute respiratory failure with hypoxia Bilateral pneumonia Chronic systolic (congestive) heart failure Essential hypertension LBBB (left bundle branch block) Non-rheumatic mitral regurgitation Nonischemic cardiomyopathy Sepsis Home Medications labetalol 200 mg tablet 100 mg PO BID BLOOD PRESSURE 02/03/23 [History Last Taken 05/16/23] lisinopril 10 mg tablet 10 mg PO .hs BLOOD PRESSURE 02/03/23 [History Last Taken 3 Days Ago ~01/31/23] spironolactone 25 mg tablet 25 mg PO DAILY BLOOD PRESSURE 02/03/23 [History Last Taken 02/02/23] furosemide 40 mg tablet 20 mg PO DAILY FLLUID 05/16/23 [History Last Taken Unknown] Allergy/AdvReac Type Severity Reaction Status Date / Time torsemide AdvReac Unknown Unknown Verified 05/16/23 12:38 Family History Mother Myocardial infarction, Onset Age: 56 Father Myocardial infarction, Onset Age: 81 Other Heart disease Surgical History History of appendectomy History of cholecystectomy History of knee replacement procedure of left knee History of left heart catheterization (LHC) (~10/23/19) Social History Smoking Status: Never smoker alcohol intake: never substance use type: does not use ROS <GERBER Brown - Last Filed: 05/16/23 18:59> ROS ED Constitutional Constitutional ED: Denies chills or fever(s) Cardiovascular Cardiovascular: Denies chest pain Respiratory/Chest Respiratory/Chest: Denies cough or dyspnea Gastrointestinal Gastrointestinal: Reports abdominal pain and nausea; Denies constipation or vomiting Genitourinary Genitourinary ED: Denies dysuria, hematuria or urinary urgency Musculoskeletal Musculoskeletal: Denies arthralgias, back pain, myalgias or neck pain Integumentary Denies abscess, Abrasions or rash Neurologic Neurologic: Denies confusion, dizziness or paresthesias Psychiatric Psychiatric: Denies anxiety, depression, suicidal ideation or suicidal thoughts Allergic/Immunologic Allergic/Immunologic ED: Denies lip swelling, mouth swelling or urticaria EXAM <GERBER Brown - Last Filed: 05/16/23 18:59> Physical Exam Const Vital Signs: 05/16/23 12:36 05/16/23 14:09 05/16/23 14:38 Temperature 96.7 F L Temperature Source Temporal Pulse Rate 86 90 Respiratory Rate 20 H 18 Blood Pressure 143/80 H 153/108 H Blood Pressure Mean 101 123 Pulse Ox 100 92 82 Oxygen Delivery Method Room Air Room Air Room Air Oxygen Flow Rate (L/min) 05/16/23 14:39 05/16/23 14:41 05/16/23 14:54 Temperature Temperature Source Pulse Rate 87 Respiratory Rate 10 L Blood Pressure 140/74 H Blood Pressure Mean 96 Pulse Ox 94 97 99 Oxygen Delivery Method Nasal Cannula Nasal Cannula Nasal Cannula Oxygen Flow Rate (L/min) 6 6 6 05/16/23 15:06 05/16/23 15:16 05/16/23 15:28 Temperature Temperature Source Pulse Rate Respiratory Rate Blood Pressure Blood Pressure Mean Pulse Ox 98 97 97 Oxygen Delivery Method Nasal Cannula Nasal Cannula Nasal Cannula Oxygen Flow Rate (L/min) 4 2 2 05/16/23 15:32 05/16/23 17:03 Temperature 97 F L Temperature Source Temporal Pulse Rate 71 80 Respiratory Rate 12 14 Blood Pressure 123/67 H 150/78 H Blood Pressure Mean 85 102 Pulse Ox 97 93 Oxygen Delivery Method Nasal Cannula Room Air Oxygen Flow Rate (L/min) 2 Positive well nourished, well developed and no apparent distress General Appearance ED: well developed HEENT Reports normocephalic and head/scalp atraumatic Mouth ED: Yes moist mucous membranes normal Eyes PERRL and EOMs intact bilaterally Neck full ROM and supple Chest Wall inspection of chest normal Resp normal respiratory effort and clear to auscultation bilaterally Cardio regular rate and regular rhythm GI soft to palpation, non-distended and no masses GI Narrative: Generalized tenderness to palpation with guarding Back/Spine normal ROM and normal to inspection Extremity normal to inspection and full ROM Neuro oriented x3, CN's II-XII intact bilaterally, moves all extremities, no focal motor deficits and no sensory deficits noted Sensorium / Orientation: awake and alert Psych mental status grossly normal and thought process normal Skin no rashes or lesions noted and no wounds <Dr. Vivek Calderon, DO - Last Filed: 05/16/23 16:08> Physical Exam Const Vital Signs: 05/16/23 12:36 05/16/23 14:09 05/16/23 14:38 Temperature 96.7 F L Temperature Source Temporal Pulse Rate 86 90 Respiratory Rate 20 H 18 Blood Pressure 143/80 H 153/108 H Blood Pressure Mean 101 123 Pulse Ox 100 92 82 Oxygen Delivery Method Room Air Room Air Room Air Oxygen Flow Rate (L/min) 05/16/23 14:39 05/16/23 14:41 05/16/23 14:54 Temperature Temperature Source Pulse Rate 87 Respiratory Rate 10 L Blood Pressure 140/74 H Blood Pressure Mean 96 Pulse Ox 94 97 99 Oxygen Delivery Method Nasal Cannula Nasal Cannula Nasal Cannula Oxygen Flow Rate (L/min) 6 6 6 05/16/23 15:06 05/16/23 15:16 05/16/23 15:28 Temperature Temperature Source Pulse Rate Respiratory Rate Blood Pressure Blood Pressure Mean Pulse Ox 98 97 97 Oxygen Delivery Method Nasal Cannula Nasal Cannula Nasal Cannula Oxygen Flow Rate (L/min) 4 2 2 05/16/23 15:32 05/16/23 17:03 Temperature 97 F L Temperature Source Temporal Pulse Rate 71 80 Respiratory Rate 12 14 Blood Pressure 123/67 H 150/78 H Blood Pressure Mean 85 102 Pulse Ox 97 93 Oxygen Delivery Method Nasal Cannula Room Air Oxygen Flow Rate (L/min) 2 <Dr. Darvin Oviedo, DO - Last Filed: 05/16/23 21:34> Physical Exam Const Vital Signs: 05/16/23 12:36 05/16/23 14:09 05/16/23 14:38 Temperature 96.7 F L Temperature Source Temporal Pulse Rate 86 90 Respiratory Rate 20 H 18 Blood Pressure 143/80 H 153/108 H Blood Pressure Mean 101 123 Pulse Ox 100 92 82 Oxygen Delivery Method Room Air Room Air Room Air Oxygen Flow Rate (L/min) 05/16/23 14:39 05/16/23 14:41 05/16/23 14:54 Temperature Temperature Source Pulse Rate 87 Respiratory Rate 10 L Blood Pressure 140/74 H Blood Pressure Mean 96 Pulse Ox 94 97 99 Oxygen Delivery Method Nasal Cannula Nasal Cannula Nasal Cannula Oxygen Flow Rate (L/min) 6 6 6 05/16/23 15:06 05/16/23 15:16 05/16/23 15:28 Temperature Temperature Source Pulse Rate Respiratory Rate Blood Pressure Blood Pressure Mean Pulse Ox 98 97 97 Oxygen Delivery Method Nasal Cannula Nasal Cannula Nasal Cannula Oxygen Flow Rate (L/min) 4 2 2 05/16/23 15:32 05/16/23 17:03 Temperature 97 F L Temperature Source Temporal Pulse Rate 71 80 Respiratory Rate 12 14 Blood Pressure 123/67 H 150/78 H Blood Pressure Mean 85 102 Pulse Ox 97 93 Oxygen Delivery Method Nasal Cannula Room Air Oxygen Flow Rate (L/min) 2 [facility] <GERBER Brown - Last Filed: 05/16/23 18:59> [facility] Narrative Medical decision making narrative: Patient presenting today due to periumbilical abdominal pain that started this morning. She had 2 episodes of loose stool, she has a history of diverticulitis. She does have tenderness to her belly on exam with guarding. Labs will be obtained to rule out leukocytosis, anemia, electrolyte abnormality, RENETTA, and UTI. She was a history of an appendectomy and cholecystectomy. CT of the abdomen and pelvis will be obtained to rule out diverticulitis, colitis, bowel obstruction, mass, and other etiology. She has been given IV Zofran and morphine. Patient was still in significant pain, she was given Dilaudid. Initial CT concerning for bowel obstruction, case was discussed with Dr. Galloway and she suggested CT with IV contrast and to place an NG tube. CT with IV contrast does confirm small bowel obstruction. This finding was relayed to Dr. Galloway and case was discussed with the hospitalist. Patient admitted in stable condition and is comfortable with plan. I have personally performed a face to face assessment of the patient and have reviewed the TOMAS Note. I performed a substantive portion of the visit including all aspects of the following. My paul findings include: History is [patient presents with abdominal pain that started suddenly around 8 this morning. Patient rates her pain a 10 out of 10. It is mostly in her left lower abdomen and also feels pain in her back. She has had some nausea and vomiting with this. She denies any blood in her stool or black tarry stool. She has prior history of kidney stones and history of diverticulitis. Patient states that with diverticulitis she did not have this much pain. She denies urinary symptoms of dysuria or urgency or frequency. She denies hematuria.] Exam is [HEENT-PERRLA, EOMI. Cranial nerves II through XII grossly intact. TMs clear. Mucous membranes moist. No adenopathy. Cardiovascular-regular rate and rhythm without murmur or ectopy Lungs-clear to auscultation, chest wall stable without crepitus or subcu emphysema Abdomen-normoactive bowel sounds, soft. Patient has tenderness palpation over the left lower quadrant and suprapubic region as well as the right lower quadra nt. She has CVA tenderness on the left. There is no rebound, rigidity, or pedal signs. No mass palpated Extremities-intact ?4, normal range of motion, normal pulses, atraumatic] Medical Decison Making [patient presented with sudden onset of abdominal pain. Lab work-up showed normal white count. Chemistries unremarkable. Lactate was normal at 0.7. LFTs were normal. Urinalysis was unremarkable. CT scan of the pelvis without contrast was taken there was no evidence of kidney stones. There was fluid-filled bowel with evidence of inflammatory changes in the resident fat in the right lower quadrant. There was small amount of free fluid within the abdomen. And small amount of perihepatic fluid.] Case discussed with general surgeon on-call as she continues to have pain. In the differential currently would be small bowel obstruction developing versus ischemic bowel disease. I was asked to obtain a CT scan with IV contrast and place NG tube to low intermittent suction. Patient will require admission and we will discussed with hospitalist and surgery will consult. Other additions or changes: [None] Lab Data Labs: Laboratory Results - last 24 hr 05/16/23 05/16/23 05/16/23 13:20 14:15 14:45 WBC 8.3 RBC 4.49 Hgb 14.3 Hct 42.2 MCV 94.0 MCH 31.8 MCHC 33.9 RDW Std Deviation 45.6 H RDW Coeff of Tanya 13.1 Plt Count 324 MPV 9.6 Immature Gran % (Auto) 0.400 Neut % (Auto) 83.7 H Lymph % (Auto) 12.7 L [place] % (Auto) 2.8 Eos % (Auto) 0.2 Baso % (Auto) 0.2 Absolute Neuts (auto) 6.9 Absolute Lymphs (auto) 1.05 Nucleated RBC % 0 Sodium 139 Potassium 4.3 Chloride 106 Carbon Dioxide 26.0 Anion Gap 7 BUN 26 H Creatinine 0.91 Est GFR (MDRD) Af Amer 77 Est GFR (MDRD) Non-Af 64 BUN/Creatinine Ratio 28.6 H Glucose 135 H Lactic Acid 0.7 Calcium 9.7 Total Bilirubin 0.30 AST 10 L ALT 16 Alkaline Phosphatase 66 Total Protein 7.9 Albumin 3.8 Globulin 4.1 Albumin/Globulin Ratio 0.9 Lipase 29 Urine Color Yellow Urine Clarity Clear Urine pH 5.0 Ur Specific [place] 1.030 Urine Protein 30 H Urine Glucose (UA) Normal Urine Ketones 5 H Urine Occult Blood 25 H Urine Nitrite Negative Urine Bilirubin 3 H Urine Urobilinogen 1 H Ur Leukocyte Esterase 25 H Urine RBC 0 SEEN Urine WBC 0-5 SEEN Ur Squamous Epith Cells 0-5 SEEN Urine Bacteria 1+ Urine Mucus 0 SEEN Radiography Diagnostic Testing: Clinical Impression(s) from Imaging Studies Abdomen/Pelvis CT 05/16/23 13:18 IMPRESSION: Fluid-filled distended small bowel loops in the distal small bowel with evidence of inflammatory changes in the resident fat in the right lower quadrant. There appears to be prior right hemicolectomy. Sigmoid diverticulosis. Small amount of free fluid in the cul-de-sac. Small amount of perihepatic fluid. Status post cholecystectomy. Small hepatic cysts. Right renal cyst. Electronically Signed: Roge Murray MD at 14:12 EDT , Abdomen/Pelvis CT 05/16/23 15:38 IMPRESSION: Mildly dilated gas and fluid-filled loops of small bowel proximally with normal caliber bowel loops distally which may represent developing obstruction. There is no free air identified. There is free fluid in the upper abdomen and pelvis which may represent ascites. There is also fluid-filled colon which may represent incipient diarrhea. Electronically Signed: Yeison Connolly MD at 16:49 EDT , <Dr. Vivek Calderon, DO - Last Filed: 05/16/23 16:08> [facility] MDM Narrative Medical decision making narrative: Patient presenting today due to periumbilical abdominal pain that started this morning. She had 2 episodes of loose stool, she has a history of diverticulitis. She does have tenderness to her belly on exam with guarding. Labs will be obtained to rule out leukocytosis, anemia, electrolyte abnormality, RENETTA, and UTI. She was a history of an appendectomy and cholecystectomy. CT of the abdomen and pelvis will be obtained to rule out diverticulitis, colitis, bowel obstruction, mass, and other etiology. She has been given IV Zofran and morphine. I have personally performed a face to face assessment of the patient and have reviewed the TOMAS Note. I performed a substantive portion of the visit including all aspects of the following. My paul findings include: History is [patient presents with abdominal pain that started suddenly around 8 this morning. Patient rates her pain a 10 out of 10. It is mostly in her left lower abdomen and also feels pain in her back. She has had some nausea and vomiting with this. She denies any blood in her stool or black tarry stool. She has prior history of kidney stones and history of diverticulitis. Patient states that with diverticulitis she did not have this much pain. She denies urinary symptoms of dysuria or urgency or frequency. She denies hematuria.] Exam is [HEENT-PERRLA, EOMI. Cranial nerves II through XII grossly intact. TMs clear. Mucous membranes moist. No adenopathy. Cardiovascular-regular rate and rhythm without murmur or ectopy Lungs-clear to auscultation, chest wall stable without crepitus or subcu emphysema Abdomen-normoactive bowel sounds, soft. Patient has tenderness palpation over the left lower quadrant and suprapubic region as well as the right lower quadrant. She has CVA tenderness on the left. There is no rebound, rigidity, or pedal signs. No mass palpated Extremities-intact ?4, normal range of motion, normal pulses, atraumatic] Medical Decison Making [patient presented with sudden onset of abdominal pain. Lab work-up showed normal white count. Chemistries unremarkable. Lactate was normal at 0.7. LFTs were normal. Urinalysis was unremarkable. CT scan of the pelvis without contrast was taken there was no evidence of kidney stones. There was fluid-filled bowel with evidence of inflammatory changes in the resident fat in the right lower quadrant. There was small amount of free fluid within the abdomen. And small amount of perihepatic fluid.] Case discussed with general surgeon on-call as she continues to have pain. In the differential currently would be small bowel obstruction developing versus ischemic bowel disease. I was asked to obtain a CT scan with IV contrast and place NG tube to low intermittent suction. Patient will require admission and we will discussed with hospitalist and surgery will consult. Other additions or changes: [None] Lab Data Attestation: I reviewed the patient's lab results. Labs: Laboratory Results - last 24 hr 05/16/23 05/16/23 05/16/23 13:20 14:15 14:45 WBC 8.3 RBC 4.49 Hgb 14.3 Hct 42.2 MCV 94.0 MCH 31.8 MCHC 33.9 RDW Std Deviation 45.6 H RDW Coeff of Tanya 13.1 Plt Count 324 MPV 9.6 Immature Gran % (Auto) 0.400 Neut % (Auto) 83.7 H Lymph % (Auto) 12.7 L [place] % (Auto) 2.8 Eos % (Auto) 0.2 Baso % (Auto) 0.2 Absolute Neuts (auto) 6.9 Absolute Lymphs (auto) 1.05 Nucleated RBC % 0 Sodium 139 Potassium 4.3 Chloride 106 Carbon Dioxide 26.0 Anion Gap 7 BUN 26 H Creatinine 0.91 Est GFR (MDRD) Af Amer 77 Est GFR (MDRD) Non-Af 64 BUN/Creatinine Ratio 28.6 H Glucose 135 H Lactic Acid 0.7 Calcium 9.7 Total Bilirubin 0.30 AST 10 L ALT 16 Alkaline Phosphatase 66 Total Protein 7.9 Albumin 3.8 Globulin 4.1 Albumin/Globulin Ratio 0.9 Lipase 29 Urine Color Yellow Urine Clarity Clear Urine pH 5.0 Ur Specific [place] 1.030 Urine Protein 30 H Urine Glucose (UA) Normal Urine Ketones 5 H Urine Occult Blood 25 H Urine Nitrite Negative Urine Bilirubin 3 H Urine Urobilinogen 1 H Ur Leukocyte Esterase 25 H Urine RBC 0 SEEN Urine WBC 0-5 SEEN Ur Squamous Epith Cells 0-5 SEEN Urine Bacteria 1+ Urine Mucus 0 SEEN Radiography Diagnostic Testing: Clinical Impression(s) from Imaging Studies Abdomen/Pelvis CT 05/16/23 13:18 IMPRESSION: Fluid-filled distended small bowel loops in the distal small bowel with evidence of inflammatory changes in the resident fat in the right lower quadrant. There appears to be prior right hemicolectomy. Sigmoid diverticulosis. Small amount of free fluid in the cul-de-sac. Small amount of perihepatic fluid. Status post cholecystectomy. Small hepatic cysts. Right renal cyst. Electronically Signed: Roge Murray MD at 14:12 EDT , Abdomen/Pelvis CT 05/16/23 15:38 IMPRESSION: Mildly dilated gas and fluid-filled loops of small bowel proximally with normal caliber bowel loops distally which may represent developing obstruction. There is no free air identified. There is free fluid in the upper abdomen and pelvis which may represent ascites. There is also fluid-filled colon which may represent incipient diarrhea. Electronically Signed: Yeison Connolly MD at 16:49 EDT , <Dr. Darvin Oviedo, DO - Last Filed: 05/16/23 21:34> [facility] Lab Data Labs: Laboratory Results - last 24 hr 05/16/23 05/16/23 05/16/23 13:20 14:15 14:45 WBC 8.3 RBC 4.49 Hgb 14.3 Hct 42.2 MCV 94.0 MCH 31.8 MCHC 33.9 RDW Std Deviation 45.6 H RDW Coeff of Tanya 13.1 Plt Count 324 MPV 9.6 Immature Gran % (Auto) 0.400 Neut % (Auto) 83.7 H Lymph % (Auto) 12.7 L [place] % (Auto) 2.8 Eos % (Auto) 0.2 Baso % (Auto) 0.2 Absolute Neuts (auto) 6.9 Absolute Lymphs (auto) 1.05 Nucleated RBC % 0 Sodium 139 Potassium 4.3 Chloride 106 Carbon Dioxide 26.0 Anion Gap 7 BUN 26 H Creatinine 0.91 Est GFR (MDRD) Af Amer 77 Est GFR (MDRD) Non-Af 64 BUN/Creatinine Ratio 28.6 H Glucose 135 H Lactic Acid 0.7 Calcium 9.7 Total Bilirubin 0.30 AST 10 L ALT 16 Alkaline Phosphatase 66 Total Protein 7.9 Albumin 3.8 Globulin 4.1 Albumin/Globulin Ratio 0.9 Lipase 29 Urine Color Yellow Urine Clarity Clear Urine pH 5.0 Ur Specific [place] 1.030 Urine Protein 30 H Urine Glucose (UA) Normal Urine Ketones 5 H Urine Occult Blood 25 H Urine Nitrite Negative Urine Bilirubin 3 H Urine Urobilinogen 1 H Ur Leukocyte Esterase 25 H Urine RBC 0 SEEN Urine WBC 0-5 SEEN Ur Squamous Epith Cells 0-5 SEEN Urine Bacteria 1+ Urine Mucus 0 SEEN Radiography Diagnostic Testing: Clinical Impression(s) from Imaging Studies Abdomen/Pelvis CT 05/16/23 13:18 IMPRESSION: Fluid-filled distended small bowel loops in the distal small bowel with evidence of inflammatory changes in the resident fat in the right lower quadrant. There appears to be prior right hemicolectomy. Sigmoid diverticulosis. Small amount of free fluid in the cul-de-sac. Small amount of perihepatic fluid. Status post cholecystectomy. Small hepatic cysts. Right renal cyst. Electronically Signed: Roge Murray MD at 14:12 EDT , Abdomen/Pelvis CT 05/16/23 15:38 IMPRESSION: Mildly dilated gas and fluid-filled loops of small bowel proximally with normal caliber bowel loops distally which may represent developing obstruction. There is no free air identified. There is free fluid in the upper abdomen and pelvis which may represent ascites. There is also fluid-filled colon which may represent incipient diarrhea. Electronically Signed: Yeison Connolly MD at 16:49 EDT , Treatment and Re-Evaluation Comments:: Patient CT returns and was reviewed by myself. Surgery reviewed the films as well and NG tube is going to be placed. Medicine was contacted for admission and also reevaluated the patient. Admission order has been placed. I have personally performed a face to face assessment of the patient and have reviewed the TOMAS Note. I performed a substantive portion of the visit including all aspects of the following. My paul findings include: Patient checked out to me by Dr. Bunch for check of CT scan and final disposition. CT scan returns with evidence of small bowel obstruction. This was reviewed by myself radiology and surgery. Medicine was contacted for admission and NG tube placed. Discharge Plan Dx/Rx/DC Orders Clinical Impression: Abdominal pain, SBO (small bowel obstruction), Chronic systolic (congestive) heart failure Disposition Disposition: Acute Care Hospital [facility] Discharge Date/Time: 05/16/23 19:14
--- NOTE | 2023-05-16 13:18 | CT_ITS ---
STUDY: CT ABDOMEN AND PELVIS WITHOUT CONTRAST REASON FOR EXAM: Female, 78 years old. Abdominal pain. Nausea and vomiting. RADIATION DOSAGE (If Supplied By Facility): CTDIvol = ( 11.05 ) mGy, DLP = ( 510.84 ) mGycm TECHNIQUE: Transaxial images were obtained from the dome of the diaphragm to the symphysis pubis without oral contrast, and without intravenous contrast. Sagittal and coronal images were reconstructed. Individualized dose optimization techniques were used for this CT. COMPARISON: None. FINDINGS: Prominent reticular nodular pattern is seen at the lung bases. This may represent fibrosis. There is calcification of the mitral annulus as well as the coronary arteries. Small to moderate size pericardial effusion. There is a 1.2 cm cyst in the peripheral medial aspect of the left lobe of the liver. There is a 1.4 cm cyst in the inferior aspect of the right lobe of the liver. Mild degree of perihepatic fluid. The patient is status post cholecystectomy. Normal spleen. Normal pancreas. Normal bilateral adrenal glands. Complex cyst seen in the upper midportion of the right kidney. The cyst measures 5.8 cm x 5.4 cm x 7.4 cm. Normal left kidney. Normal visualized stomach. Fluid-filled and mildly dilated small bowel loops are seen in the right lower quadrant. Inflammatory changes are seen in the mesenteric fat in the right lower quadrant. An inflammatory process/enteritis should be ruled out. There are multiple colonic diverticula consistent with diverticulosis. There appears to be prior right hemicolectomy. The distal portion of the colon is not dilated. There is diffuse atherosclerotic calcification of the abdominal aorta and its major visceral branches, without a demonstrated aneurysm. Normal inferior vena cava. Normal retroperitoneum. Normal urinary bladder. Calcified fibroid uterus. Small amount of free fluid is seen in the cul-de-sac. Normal abdominal wall. . 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 CT/Abdomen/Pelvis without Cont IMPRESSION: Fluid-filled distended small bowel loops in the distal small bowel with evidence of inflammatory changes in the resident fat in the right lower quadrant. There appears to be prior right hemicolectomy. Sigmoid diverticulosis. Small amount of free fluid in the cul-de-sac. Small amount of perihepatic fluid. Status post cholecystectomy. Small hepatic cysts. Right renal cyst. Electronically Signed: Roge Murray MD at 14:12 EDT ,
[2023-05-16] MEDS: Morphine 4 MG/ML Syringe IV (13:28)
[2023-05-16] MEDS: Ondansetron 4 MG/2 ML Vial IV (13:28)
[2023-05-16 13:36] LABS: Absolute Lymphocyte Count 1.05 X10^3/uL (0.83-4.51); Absolute Neutrophil Count 6.9 X10^3/uL (2.0-7.7); Basophil# 0.02 X10^3/uL; Basophil% 0.2 % (0-1); Eosinophil# 0.02 X10^3/uL; Eosinophils% 0.2 % (0-5); Hematocrit 42.2 % (37-47); Hemoglobin 14.3 g/dL (12.0-15.0); Lymphocyte # 1.05 X10^3/ul (0.83-4.51); Lymphocyte % 12.7 % (19-41); Mean Corp Hgb Conc 33.9 g/dL (32-36); Mean Corpuscular Hgb 31.8 pg (27.0-32.0); Mean Platelet Vol. 9.6 fl (6.2-12.0); Monocyte# 0.23 X10^3/uL; Monocyte% 2.8 % (0-10); NRBC Flagged by Analyzer 0 % (0-5); Neutrophil % 83.7 % (47-70); Platelet Count 324 K/mm3 (150-450); RBC Distribution Width CV 13.1 % (11.6-14.6); RBC Distribution Width SD 45.6 fl (35.1-43.9); Red Blood Count 4.49 M/mm3 (4.2-5.4); White Blood Count 8.3 K/mm3 (4.4-11.0)
[2023-05-16 14:05] LABS: ALB/GLOB Ratio 0.9 RATIO (0.9-2.4); AST(SGOT) 10 U/L (15-37); Alanine Aminotransfer ALT/SGPT 16 U/L (13-56); Albumin, Serum 3.8 g/dL (3.2-5.0); Alkaline Phosphatase 66 U/L (45-117); Anion Gap 7 (5-15); BUN 26 mg/dL (7-18); BUN/Creat Ratio 28.6 RATIO (10-20); Calcium,Total 9.7 mg/dL (8.5-10.1); Chloride 106 mmol/L (98-107); Creatinine, Serum 0.91 mg/dL (0.55-1.02); EST Glomerular Filtration Rate 64 mL/min (>60); Est Glom Filt Rate - Afr Amer 77 mL/min (>60); Globulin 4.1 g/dL (2.2-4.2); Glucose 135 mg/dL (74-106); Lipase 29 U/L (13-75); Potassium 4.3 mmol/L (3.5-5.1); Protein, Total 7.9 g/dL (6.4-8.2); Sodium Level 139 mmol/L (136-145)
[2023-05-16 14:20] LABS: Mucous, Urine 0 SEEN /hpf (<or=2+); Red Blood Cells-Urine 0 SEEN /hpf (0-5)
[2023-05-16 14:30] LABS: Color, Urine Yellow (Yellow); Glucose, Dipstick Normal (Normal); Ketone-Dipstick 5 mg/dl (Negative); Leukocyte Esterase-Dipstick 25 /ul (Negative); Nitrite-Dipstick Negative (Negative); Occult Blood-Urine 25 /ul (Negative); Protein-Dipstick 30 mg/dl (Negative); Urine Clarity Clear (Clear); Urine Urobilinogen 1 mg/dl (Normal)
[2023-05-16] MEDS: HYDROmorphone 1 MG/ML Syringe IV (14:31)
[2023-05-16 15:12] LABS: Bacteria 1+ /hpf (None Seen); Squamous Epithelial Cells - UA 0-5 SEEN /hpf (5-10); Urine Bilirubin Dipstick 3 mg/dL (Negative); White Blood Cells 0-5 SEEN /hpf (0-5)
[2023-05-16 15:20] LABS: Lactic Acid 0.7 mmol/L (0.4-1.9)
--- NOTE | 2023-05-16 15:38 | CT_ITS ---
EXAM: CT ABDOMEN AND PELVIS WITH INTRAVENOUS CONTRAST CLINICAL INDICATION: abdominal pain TECHNIQUE: Helically acquired images were obtained of the abdomen and pelvis with intravenous contrast. This CT exam was performed using one or more of the following dose reduction techniques: automated exposure control, adjustment of the mA and/or kV according to patient size, and/or use of iterative reconstruction technique. CONTRAST: IV 100mL [id number] COMPARISON: 05/16/2023 FINDINGS: LOWER THORAX: Unremarkable. Lung bases are clear. No cardiomegaly. No significant pericardial effusion. ABDOMEN: LIVER: Unremarkable. Homogeneous. No focal mass. GALLBLADDER AND BILE DUCTS: There are surgical clips from a cholecystectomy. No intra- or extrahepatic biliary ductal dilation. PANCREAS: Unremarkable. No focal cystic or solid mass. SPLEEN: Unremarkable. Normal size without focal cystic or solid mass. ADRENALS: Unremarkable. No nodules. KIDNEYS AND URETERS: Unremarkable. Normal renal size and position. No hydronephrosis. STOMACH AND BOWEL: There are mildly dilated gas and fluid-filled loops of small bowel mid to lower abdomen which may represent enteritis or obstruction. There is fluid within the proximal colon which may represent incipient diarrhea. There is sigmoid no evidence of diverticulitis. PELVIS: APPENDIX: No evidence of acute appendicitis. BLADDER: Unremarkable. REPRODUCTIVE: Unremarkable as visualized. No mass. ABDOMEN and PELVIS: INTRAPERITONEAL SPACE: There is free fluid seen within the upper abdomen pelvis which may represent ascites. There are fluid density masses compatible with cysts which are stable. No follow-up imaging is necessary. No free air. BONES/JOINTS: Unremarkable. No suspicious lytic or blastic abnormality. SOFT TISSUES: Unremarkable. No discrete abdominal or pelvic wall hernia. VASCULATURE: Unremarkable. Abdominal aorta is non-dilated. LYMPH NODES: Unremarkable. No enlarged lymph nodes. TUBES, LINES AND DEVICES: Nasogastric tube is in place. CT/Abdomen/Pelvis W IV Cont ONLY IMPRESSION: Mildly dilated gas and fluid-filled loops of small bowel proximally with normal caliber bowel loops distally which may represent developing obstruction. There is no free air identified. There is free fluid in the upper abdomen and pelvis which may represent ascites. There is also fluid-filled colon which may represent incipient diarrhea. Electronically Signed: Yeison Connolly MD at 16:49 EDT ,
[2023-05-16] MEDS: Oxymetazoline 0.05% 1 SPRAY SPRAY.BTL 2 SPRAY NASAL (15:47)
--- NOTE | 2023-05-16 16:35 | CON.PCM.SX_ITS ---
Assessment & Plan Assessment/Plan (1) SBO (small bowel obstruction): (2) Cardiac LV ejection fraction 10-20%: (3) Cardiomyopathy: PLAN: Plan Discussed with patient with plan for NG/IV fluids/n.p.o. and check KUB in the morning. Also plan for likely small bowel follow-through in the morning. Discussed with patient that if she did need surgery she would be at very high risk would likely be consulting cardiology as well at that time. Patient is agreeable with conservative therapy currently. Caridad Galloway M.D. Pager: [phone] [facility] [address] [place] [address], Outpatient Pavilion, [address] [place] [address] Office: [phone] HPI Consult Data Date of Consult: 05/17/23 HPI Narrative HPI Narrative: ETTA VEGA, is a 78 F who presents to the ER due to abdominal pain and right mid abdomen started at 8 AM this morning after eating breakfast. Patient did have some nausea and was unable to vomit. Patient denies previous history of this previous abdominal pain. Patient did have a normal bowel movement this morning x2 denies any flatus since the pain started. Patient's had an open cholecystectomy and an appendectomy is not aware of a right hemicolectomy as it is called on CT abdomen pelvis. Patient CT abdomen pelvis also shows dilated small bowel in the right mid lower abdomen with some free fluid. Patient has normal white blood cell count with a slight shift. Patient has had NG placed only has about 4-500 in the canister states her abdominal pain is little better than when she came in. [facility] Medical History Abnormal electrocardiogram Acute exacerbation of CHF (congestive heart failure) Acute hypoxemic respiratory failure Acute respiratory distress Acute respiratory failure with hypoxia Bilateral pneumonia Chronic systolic (congestive) heart failure Essential hypertension LBBB (left bundle branch block) Non-rheumatic mitral regurgitation Nonischemic cardiomyopathy Sepsis Home Medications labetalol 200 mg tablet 100 mg PO BID BLOOD PRESSURE 02/03/23 [History Last Taken 05/16/23] lisinopril 10 mg tablet 10 mg PO .hs BLOOD PRESSURE 02/03/23 [History Last Taken 3 Days Ago ~01/31/23] spironolactone 25 mg tablet 25 mg PO DAILY BLOOD PRESSURE 02/03/23 [History Last Taken 02/02/23] furosemide 40 mg tablet 20 mg PO DAILY FLLUID 05/16/23 [History Last Taken Unknown] Allergy/AdvReac Type Severity Reaction Status Date / Time torsemide AdvReac Unknown Unknown Verified 05/16/23 12:38 Family History Mother Myocardial infarction, Onset Age: 56 Father Myocardial infarction, Onset Age: 81 Other Heart disease Surgical History History of appendectomy History of cholecystectomy History of knee replacement procedure of left knee History of left heart catheterization (LHC) (~10/23/19) Social History Smoking Status: Never smoker alcohol intake: never substance use type: does not use ROS Constitutional Constitutional: Reports anorexia Eyes Eyes: Denies change in vision ENT HEENT: Denies dysphagia Cardiovascular Cardiovascular: Denies chest pain Respiratory/Chest Respiratory/Chest: Denies cough Gastrointestinal Gastrointestinal: Reports abdominal pain, nausea and vomiting; Denies constipation or diarrhea Genitourinary Genitourinary: Denies dysuria Musculoskeletal Musculoskeletal: Denies joint swelling Integumentary Integumentary: Denies rash Neurologic Neurologic: Denies focal weakness Psychiatric Psychiatric: Denies anxiety Endocrine Endocrinology: Denies palpitations Hematologic/Lymphatic Hematologic/Lymphatic: Denies easy bleeding Physical Exam Const alert, oriented x3 and no apparent distress HEENT normocephalic and head/scalp atraumatic Resp normal respiratory effort Cardio regular rate GI soft to palpation; Negative for non-distended Palpation: tender RLQ (Mid and lower right quadrant, no peritoneal signs); Negative for guarding Extremity no clubbing, cyanosis or edema Neuro CN's II-XII intact bilaterally Psych mental status grossly normal Lab / Micro Data 05/17/23 06:00 05/16/23 13:20 Labs: Laboratory Results - last 24 hr 05/16/23 13:20: WBC 8.3, RBC 4.49, Hgb 14.3, Hct 42.2, MCV 94.0, MCH 31.8, MCHC 33.9, RDW Std Deviation 45.6 H, RDW Coeff of Tanya 13.1, Plt Count 324, MPV 9.6, Immature Gran % (Auto) 0.400, Neut % (Auto) 83.7 H, Lymph % (Auto) 12.7 L, [place] % (Auto) 2.8, Eos % (Auto) 0.2, Baso % (Auto) 0.2, Absolute Neuts (auto) 6.9, Absolute Lymphs (auto) 1.05, Nucleated RBC % 0, Sodium 139, Potassium 4.3, Chloride 106, Carbon Dioxide 26.0, Anion Gap 7, BUN 26 H, Creatinine 0.91, Est GFR (MDRD) Af Amer 77, Est GFR (MDRD) Non-Af 64, BUN/Creatinine Ratio 28.6 H, Glucose 135 H, Calcium 9.7, Total Bilirubin 0.30, AST 10 L, ALT 16, Alkaline Phosphatase 66, Total Protein 7.9, Albumin 3.8, Globulin 4.1, Albumin/Globulin Ratio 0.9, Lipase 29 05/16/23 14:15: Urine Color Yellow, Urine Clarity Clear, Urine pH 5.0, Ur Specific [place] 1.030, Urine Protein 30 H, Urine Glucose (UA) Normal, Urine Ketones 5 H, Urine Occult Blood 25 H, Urine Nitrite Negative, Urine Bilirubin 3 H, Urine Urobilinogen 1 H, Ur Leukocyte Esterase 25 H, Urine RBC 0 SEEN, Urine WBC 0-5 SEEN, Ur Squamous Epith Cells 0-5 SEEN, Urine Bacteria 1+, Urine Mucus 0 SEEN 05/16/23 14:45: Lactic Acid 0.7 Radiology Impression Abdomen/Pelvis CT 05/16/23 13:18 IMPRESSION: Fluid-filled distended small bowel loops in the distal small bowel with evidence of inflammatory changes in the resident fat in the right lower quadrant. There appears to be prior right hemicolectomy. Sigmoid diverticulosis. Small amount of free fluid in the cul-de-sac. Small amount of perihepatic fluid. Status post cholecystectomy. Small hepatic cysts. Right renal cyst. Electronically Signed: Roge Murray MD at 14:12 EDT ,
--- NOTE | 2023-05-16 17:25 | NURSING ---
MED SURG TERELETSKY SMALL BOWEL OBSTRUCTION
[2023-05-16] MEDS: 0.9% Normal Saline (1000mL) 1,000 ML 75 ML IV (20:07)
--- NOTE | 2023-05-16 20:07 | HP.PCM.HOS_ITS ---
HPI - General General Date of Admission: 05/16/23 Date of Service: 05/16/23 Chief Complaint: Abdominal pain with nausea and vomiting HPI Tiffanie VEGA, is a 78 F who presents to the emergency room at [facility] with complaints of nausea and vomiting with generalized abdominal pain since this morning. Patient denies any diarrhea. Work-up in the emergency room included a CBC which was unremarkable, chemistry profile was remarkable for glucose of 135, urinalysis was remarkable for +1 bacteria. Patient had a CT of the abdomen and pelvis performed, there was mildly dilated gas and fluid-filled loops of small bowel proximally with normal caliber bowel loops distally which may represent developing obstruction, no free air was identified, there was some free fluid in the upper abdomen and pelvis which could represent ascites. General surgery was contacted they requested insertion of an NG tube, patient will be admitted for small bowel obstruction, general surgery will see the patient. KUB will be performed tomorrow. [facility] Medical History Abnormal electrocardiogram Acute exacerbation of CHF (congestive heart failure) Acute hypoxemic respiratory failure Acute respiratory distress Acute respiratory failure with hypoxia Bilateral pneumonia Chronic systolic (congestive) heart failure Essential hypertension LBBB (left bundle branch block) Non-rheumatic mitral regurgitation Nonischemic cardiomyopathy Sepsis Home Medications labetalol 200 mg tablet 100 mg PO BID BLOOD PRESSURE 02/03/23 [History Last Taken 05/16/23] lisinopril 10 mg tablet 10 mg PO .hs BLOOD PRESSURE 02/03/23 [History Last Taken 3 Days Ago ~01/31/23] spironolactone 25 mg tablet 25 mg PO DAILY BLOOD PRESSURE 02/03/23 [History Last Taken 02/02/23] furosemide 40 mg tablet 20 mg PO DAILY FLLUID 05/16/23 [History Last Taken Unknown] Allergy/AdvReac Type Severity Reaction Status Date / Time torsemide AdvReac Unknown Unknown Verified 05/16/23 12:38 Family History Mother Myocardial infarction, Onset Age: 56 Father Myocardial infarction, Onset Age: 81 Other Heart disease Surgical History History of appendectomy History of cholecystectomy History of knee replacement procedure of left knee History of left heart catheterization (LHC) (~10/23/19) Social History Smoking Status: Never smoker alcohol intake: never substance use type: does not use ROS Constitutional Constitutional: Denies anorexia, change in weight, chills, fatigue, fever(s), night sweats or weakness Eyes Eyes: Denies blurry vision, change in vision, discharge from eye(s) or eye pain Cardiovascular Cardiovascular: Denies chest pain, claudication, dyspnea on exertion, edema or palpitations Respiratory/Chest Respiratory/Chest: Denies cough, hemoptysis, shortness of breath at rest or shortness of breath with exertion Gastrointestinal Gastrointestinal: Reports abdominal pain, nausea and vomiting; Denies constipation, diarrhea, hematemesis, hematochezia or melena Genitourinary Genitourinary: Denies dysuria, hematuria, urinary frequency, urinary hesitancy, urinary incontinence or urinary urgency Musculoskeletal Musculoskeletal: Denies back pain, joint pain, joint stiffness, joint swelling, myalgias or neck pain Neurologic Neurologic: Denies abnormal gait, abnormal speech, dizziness, focal weakness, headache(s), loss of vision, numbness, other visual disturbances, paresthesias, syncope or tingling Psychiatric Psychiatric: Denies anxiety, cognitive impairment, depression, irritability, mood swings or suicidal ideation Endocrine Endocrinology: Denies change in body appearance, cold intolerance, excessive sweating, heat intolerance, polydipsia or polyuria Hematologic/Lymphatic Hematologic/Lymphatic: Denies none, anemia, easy bleeding, easy bruising or lymphadenopathy Allergic/Immunologic Allergic/Immunologic: Denies rhinitis, urticaria, eczemia or asthma Vital Signs Vital Signs Vital Signs: 05/16/23 12:36 05/16/23 14:09 05/16/23 14:38 Temperature 96.7 F L Temperature Source Temporal Pulse Rate 86 90 Respiratory Rate 20 H 18 Blood Pressure 143/80 H 153/108 H Blood Pressure Mean 101 123 Blood Pressure Source Blood Pressure Position Blood Pressure Location Pulse Ox 100 92 82 Oxygen Delivery Method Room Air Room Air Room Air Oxygen Flow Rate (L/min) 05/16/23 14:39 05/16/23 14:41 05/16/23 14:54 Temperature Temperature Source Pulse Rate 87 Respiratory Rate 10 L Blood Pressure 140/74 H Blood Pressure Mean 96 Blood Pressure Source Blood Pressure Position Blood Pressure Location Pulse Ox 94 97 99 Oxygen Delivery Method Nasal Cannula Nasal Cannula Nasal Cannula Oxygen Flow Rate (L/min) 6 6 6 05/16/23 15:06 05/16/23 15:16 05/16/23 15:28 Temperature Temperature Source Pulse Rate Respiratory Rate Blood Pressure Blood Pressure Mean Blood Pressure Source Blood Pressure Position Blood Pressure Location Pulse Ox 98 97 97 Oxygen Delivery Method Nasal Cannula Nasal Cannula Nasal Cannula Oxygen Flow Rate (L/min) 4 2 2 05/16/23 15:32 05/16/23 17:03 05/16/23 18:23 Temperature 97 F L Temperature Source Temporal Pulse Rate 71 80 82 Respiratory Rate 12 14 14 Blood Pressure 123/67 H 150/78 H 141/69 H Blood Pressure Mean 85 102 93 Blood Pressure Source Blood Pressure Position Blood Pressure Location Pulse Ox 97 93 94 Oxygen Delivery Method Nasal Cannula Room Air Room Air Oxygen Flow Rate (L/min) 2 05/16/23 19:52 Temperature 97.7 F L Temperature Source Oral Pulse Rate 92 Respiratory Rate 15 Blood Pressure 144/72 H Blood Pressure Mean 96 Blood Pressure Source Monitor Blood Pressure Position Semi-Fowlers Blood Pressure Location Left Arm Pulse Ox 93 Oxygen Delivery Method Room Air Oxygen Flow Rate (L/min) Weight Weight: 72.3 kg Body Mass Index (BMI) 29.1 Physical Exam Const alert, oriented x3, no apparent distress and average body habitus Constitutional Narrative: Patient appears her stated age General Appearance: cooperative, well kempt and well developed Orientation / Consciousness: awake, oriented to person, oriented to place and oriented to time HEENT normocephalic, head/scalp atraumatic, hearing grossly normal bilaterally and moist oral mucous membranes Eyes PERRL, EOMs intact bilaterally and conjunctivae normal Neck supple, no JVD, thyroid normal and no carotid bruits General: trachea midline Resp normal respiratory effort, no retractions, no use of accessory muscles and clear to auscultation bilaterally Auscultation: Negative for rales, rhonchi or wheezes Cardio regular rate, regular rhythm, S1 normal heart sound, S2 normal heart sound, no murmurs, no rub and no gallops GI GI Narrative: Abdomen is distended, it is soft to palpation, bowel sounds are present in all 4 quadrants Extremity no clubbing, cyanosis or edema Skin no rashes or lesions noted General Skin Exam: no breakdown Neuro oriented x3, CN's II-XII intact bilaterally, moves all extremities, no focal motor deficits and no sensory deficits noted Sensorium / Orientation: awake, alert, oriented to person, oriented to place and oriented to time Speech: speech normal Psych affect normal Results Lab / Micro Data 05/16/23 13:20 05/16/23 13:20 Labs: Laboratory Results - last 24 hr 05/16/23 13:20: WBC 8.3, RBC 4.49, Hgb 14.3, Hct 42.2, MCV 94.0, MCH 31.8, MCHC 33.9, RDW Std Deviation 45.6 H, RDW Coeff of Tanya 13.1, Plt Count 324, MPV 9.6, Immature Gran % (Auto) 0.400, Neut % (Auto) 83.7 H, Lymph % (Auto) 12.7 L, [place] % (Auto) 2.8, Eos % (Auto) 0.2, Baso % (Auto) 0.2, Absolute Neuts (auto) 6.9, Absolute Lymphs (auto) 1.05, Nucleated RBC % 0, Sodium 139, Potassium 4.3, Chloride 106, Carbon Dioxide 26.0, Anion Gap 7, BUN 26 H, Creatinine 0.91, Est GFR (MDRD) Af Amer 77, Est GFR (MDRD) Non-Af 64, BUN/Creatinine Ratio 28.6 H, Glucose 135 H, Calcium 9.7, Total Bilirubin 0.30, AST 10 L, ALT 16, Alkaline Phosphatase 66, Total Protein 7.9, Albumin 3.8, Globulin 4.1, Albumin/Globulin Ratio 0.9, Lipase 29 05/16/23 14:15: Urine Color Yellow, Urine Clarity Clear, Urine pH 5.0, Ur Specific [place] 1.030, Urine Protein 30 H, Urine Glucose (UA) Normal, Urine Ketones 5 H, Urine Occult Blood 25 H, Urine Nitrite Negative, Urine Bilirubin 3 H, Urine Urobilinogen 1 H, Ur Leukocyte Esterase 25 H, Urine RBC 0 SEEN, Urine WBC 0-5 SEEN, Ur Squamous Epith Cells 0-5 SEEN, Urine Bacteria 1+, Urine Mucus 0 SEEN 05/16/23 14:45: Lactic Acid 0.7 Radiology Impression Abdomen/Pelvis CT 05/16/23 13:18 IMPRESSION: Fluid-filled distended small bowel loops in the distal small bowel with evidence of inflammatory changes in the resident fat in the right lower quadrant. There appears to be prior right hemicolectomy. Sigmoid diverticulosis. Small amount of free fluid in the cul-de-sac. Small amount of perihepatic fluid. Status post cholecystectomy. Small hepatic cysts. Right renal cyst. Electronically Signed: Roge Murray MD at 14:12 EDT , Abdomen/Pelvis CT 05/16/23 15:38 IMPRESSION: Mildly dilated gas and fluid-filled loops of small bowel proximally with normal caliber bowel loops distally which may represent developing obstruction. There is no free air identified. There is free fluid in the upper abdomen and pelvis which may represent ascites. There is also fluid-filled colon which may represent incipient diarrhea. Electronically Signed: Yeison Connolly MD at 16:49 EDT , Assessment & Plan Assessment/Plan (1) SBO (small bowel obstruction): PLAN: Plan 1. Small bowel obstruction-etiology unclear at this point, patient had an NG tube placed, general surgery will see the patient in consultation, patient will have a KUB tomorrow morning, patient will be n.p.o. #2 nonischemic cardiomyopathy-patient's last echocardiogram done in February of this year showed a 15% ejection fraction-patient's medications will be held at this time due to her n.p.o. status, she will receive fluid at a low rate to avoid CHF, I placed the patient on IV Vasotec for her blood pressure and cardiomyopat hy #3 essential hypertension-again patient was placed on IV Vasotec, her other medications were not able to be administered due to small bowel obstruction #4 chronic systolic congestive heart failure-again patient will be kept on IV Vasotec, her diuretics will be held at this time due to her n.p.o. status, she will need to be monitored to avoid CHF Total clinical time spent by marjanelf addressing the patient's medical issues, reviewing all of her data, and collaborating with patient's care team: 55 minutes Charges/Coding Visit Charges Inpatient E&M: 80943 Init Hosp L2
[2023-05-16] MEDS: Famotidine 200 MG/20 ML MDV 20 MG in 0.9% Normal Saline (Pres. free 8 ML 300 MG IV (22:29)
[2023-05-16] MEDS: Morphine 2 MG/ML Syringe IV (22:30)
[2023-05-16] MEDS: Heparin Injection (Vial) 5,000 UNIT/ML VIAL 5000 UNIT SC (22:33)
--- NOTE | 2023-05-16 23:25 | RAD_ITS ---
EXAM: XR ABDOMEN, 1 VIEW CLINICAL INDICATION: Small bowel obstruction TECHNIQUE: Frontal supine view of the abdomen/pelvis. COMPARISON: No relevant prior studies available. FINDINGS: LOWER THORAX: No acute pathology. GASTROINTESTINAL TRACT: Unremarkable. Non-obstructive. No bowel or stomach distention. ORGANS: Unremarkable as visualized. No organomegaly. No abnormal calcifications. BONES/JOINTS: No acute pathology. SOFT TISSUES: No acute pathology. TUBES, LINES AND DEVICES: Nasogastric tube is in place with the distal tip in the proximal stomach. RAD/Abdomen Single View (Portable) IMPRESSION: Nasogastric tube with the distal tip in proximal to mid stomach. Electronically Signed: Yeison Connolly MD at 23:48 EDT ,
[2023-05-17] VITALS (8 sets, daily range): BP systolic 127–154; BP diastolic 73–89; PULSE 82–112; RESP 14–18; TEMP 36.6–36.8; O2SAT 93–98
[2023-05-17] MEDS: Enalaprilat 1.25 MG/ML Vial IV ×4 (00:03→19:13)
[2023-05-17 06:48] LABS: Absolute Lymphocyte Count 1.54 X10^3/uL (0.83-4.51); Absolute Neutrophil Count 10.2 X10^3/uL (2.0-7.7); Basophil# 0.03 X10^3/uL; Basophil% 0.2 % (0-1); Eosinophil# 0.01 X10^3/uL; Eosinophils% 0.1 % (0-5); Hematocrit 43.3 % (37-47); Hemoglobin 14.2 g/dL (12.0-15.0); Lymphocyte # 1.54 X10^3/ul (0.83-4.51); Lymphocyte % 12.2 % (19-41); Mean Corp Hgb Conc 32.8 g/dL (32-36); Mean Corpuscular Hgb 31.3 pg (27.0-32.0); Mean Corpuscular Volume 95.6 fL (81-99); Mean Platelet Vol. 9.9 fl (6.2-12.0); Monocyte% 6.3 % (0-10); NRBC Flagged by Analyzer 0 % (0-5); Neutrophil # 10.16 X10^3/uL (2.7-7.7); Neutrophil % 80.6 % (47-70); Platelet Count 382 K/mm3 (150-450); RBC Distribution Width CV 13.1 % (11.6-14.6); RBC Distribution Width SD 46.3 fl (35.1-43.9); Red Blood Count 4.53 M/mm3 (4.2-5.4); White Blood Count 12.6 K/mm3 (4.4-11.0)
--- NOTE | 2023-05-17 07:01 | PCM.PN.SRG ---
Subjective Subjective Patient only has 100 cc in her canister overnight. Patient dates her abdominal pain feels little bit better still denies any flatus or bowel movements since being in the hospital Objective Data Objective Data Vital Signs: Vital Signs Temp Pulse Resp BP Pulse Ox O2 Del Method O2 Flow Rate 97.8 F 90 17 127/75 H 94 Room Air 2 05/17/23 05:06 05/17/23 05:06 05/17/23 05:06 05/17/23 05:06 05/17/23 05:06 05/17/23 05:06 05/16/23 15:32 Oxygen Flow Rate (L/min) 2 Oxygen Delivery Method Room Air Weight: 159 lb 6.307 oz Body Mass Index (BMI) 29.1 Intake & Output: Intake and Output for Last 24 Hours 05/15/23 05/16/23 05/17/23 23:59 23:59 23:59 Intake Total 40 / 70 90 / 90 Output Total 100 / 100 Balance 40 / 70 -10 / -10 Lab / Micro Data 05/17/23 06:00 05/17/23 06:00 Labs: Laboratory Results - last 24 hr 05/16/23 13:20: WBC 8.3, RBC 4.49, Hgb 14.3, Hct 42.2, MCV 94.0, MCH 31.8, MCHC 33.9, RDW Std Deviation 45.6 H, RDW Coeff of Tanya 13.1, Plt Count 324, MPV 9.6, Immature Gran % (Auto) 0.400, Neut % (Auto) 83.7 H, Lymph % (Auto) 12.7 L, Mcduffie % (Auto) 2.8, Eos % (Auto) 0.2, Baso % (Auto) 0.2, Absolute Neuts (auto) 6.9, Absolute Lymphs (auto) 1.05, Nucleated RBC % 0, Sodium 139, Potassium 4.3, Chloride 106, Carbon Dioxide 26.0, Anion Gap 7, BUN 26 H, Creatinine 0.91, Est GFR (MDRD) Af Amer 77, Est GFR (MDRD) Non-Af 64, BUN/Creatinine Ratio 28.6 H, Glucose 135 H, Calcium 9.7, Total Bilirubin 0.30, AST 10 L, ALT 16, Alkaline Phosphatase 66, Total Protein 7.9, Albumin 3.8, Globulin 4.1, Albumin/Globulin Ratio 0.9, Lipase 29 05/16/23 14:15: Urine Color Yellow, Urine Clarity Clear, Urine pH 5.0, Ur Specific Adam[place] 1.030, Urine Protein 30 H, Urine Glucose (UA) Normal, Urine Ketones 5 H, Urine Occult Blood 25 H, Urine Nitrite Negative, Urine Bilirubin 3 H, Urine Urobilinogen 1 H, Ur Leukocyte Esterase 25 H, Urine RBC 0 SEEN, Urine WBC 0-5 SEEN, Ur Squamous Epith Cells 0-5 SEEN, Urine Bacteria 1+, Urine Mucus 0 SEEN 05/16/23 14:45: Lactic Acid 0.7 05/17/23 06:00: WBC 12.6 H, RBC 4.53, Hgb 14.2, Hct 43.3, MCV 95.6, MCH 31.3, MCHC 32.8, RDW Std Deviation 46.3 H, RDW Coeff of Tanya 13.1, Plt Count 382, MPV 9.9, Immature Gran % (Auto) 0.600, Neut % (Auto) 80.6 H, Lymph % (Auto) 12.2 L, Mcduffie % (Auto) 6.3, Eos % (Auto) 0.1, Baso % (Auto) 0.2, Absolute Neuts (auto) 10.2 H, Absolute Lymphs (auto) 1.54, Nucleated RBC % 0 Radiography Diagnostic Testing: Radiology Impression Abdomen/Pelvis CT 05/16/23 13:18 IMPRESSION: Fluid-filled distended small bowel loops in the distal small bowel with evidence of inflammatory changes in the resident fat in the right lower quadrant. There appears to be prior right hemicolectomy. Sigmoid diverticulosis. Small amount of free fluid in the cul-de-sac. Small amount of perihepatic fluid. Status post cholecystectomy. Small hepatic cysts. Right renal cyst. Electronically Signed: Roge Murray MD at 14:12 EDT , Abdomen/Pelvis CT 05/16/23 15:38 IMPRESSION: Mildly dilated gas and fluid-filled loops of small bowel proximally with normal caliber bowel loops distally which may represent developing obstruction. There is no free air identified. There is free fluid in the upper abdomen and pelvis which may represent ascites. There is also fluid-filled colon which may represent incipient diarrhea. Electronically Signed: Yeison Connolly MD at 16:49 EDT , KUB X-Ray 05/16/23 23:25 IMPRESSION: Nasogastric tube with the distal tip in proximal to mid stomach. Electronically Signed: Yeison Connolly MD at 23:48 EDT , Physical Exam Const oriented x3 and no apparent distress Resp normal respiratory effort Cardio regular rate GI GI Narrative: Soft, tender in right mid abdomen mild, no peritoneal signs Inspection: Negative for abdominal distention Assessment & Plan Assessment/Plan (1) SBO (small bowel obstruction): (2) Cardiac LV ejection fraction 10-20%: (3) Cardiomyopathy: PLAN: Plan Discussed with patient with plan for NG/IV fluids/n.p.o.?await KUB. Likely will plan for small bowel follow-through this morning. Addendum: Patient's 1 hour and 3-hour KUB does not show that the contrast has left the stomach. Patient may be transferred as if she does need surgery which currently it is looking like with an ejection fraction of 15% with left ventricular global dyskinesia, left bundle branch block would recommend a tertiary care facility-patient was previously offered biventricular ICD but declined. Pt was accepted to [facility] M.D. Pager: [phone] [facility] [address] [place] [address], [facility], [address] [place] [address] Office: [phone] Charges/Coding Visit Charges Inpatient E&M: 15529 Subs Hosp L3
[2023-05-17 07:12] LABS: Anion Gap 8 (5-15); BUN 26 mg/dL (7-18); BUN/Creat Ratio 27.4 RATIO (10-20); Calcium,Total 9.1 mg/dL (8.5-10.1); Chloride 110 mmol/L (98-107); Creatinine, Serum 0.95 mg/dL (0.55-1.02); EST Glomerular Filtration Rate 61 mL/min (>60); Est Glom Filt Rate - Afr Amer 73 mL/min (>60); Glucose 131 mg/dL (74-106); Sodium Level 141 mmol/L (136-145)
--- NOTE | 2023-05-17 08:23 | RAD_ITS ---
STUDY: X-RAY - ABDOMEN/PELVIS REASON FOR EXAM: Female, 78 years old. sbo -- portable TECHNIQUE: Single AP view of the abdomen / pelvis. COMPARISON: Comparison is made with prior study May 16, 2023. FINDINGS: The tip of the nasogastric tube is in the body of the stomach. Mildly dilated upper small bowel loops. Surgical clips are seen in the right upper quadrant are most likely secondary to prior cholecystectomy. Normal soft tissue structures. There are diffuse degenerative changes of the visualized lumbar spine. RAD/Abdomen Single View (Portable) IMPRESSION: The tip of the nasogastric tube is in the body of the stomach. Mildly dilated small bowel loops in the upper mid abdomen. Electronically Signed: Roge Murray MD at 9:59 EDT ,
--- NOTE | 2023-05-17 09:15 | PN.HOSP_ITS ---
Reason for Visit Reason for Visit: Abdominal pain/nausea/vomiting Subjective Subjective Mrs. Bhatia is a 78-year-old female who presented to the emergency department at [facility] on 05/16/2023 complaining of abdominal pain with nausea without vomiting. It started on the morning of admission and the patient denied any associated diarrhea. She denied any history of abdominal pain or previous issues similar to this. She reported that she did have a normal bowel movement on the morning of admission but denied flatus since the pain started. She has a history of an open cholecystectomy and appendectomy. CT of the abdomen pelvis was performed and showed dilated small bowel in the right mid lower abdomen and some free fluid. She had an NG placed in the emergency department and had about 4-500 out initially. Vital signs were unremarkable. Her initial CBC was unremarkable however she does have a little bit of a leukocytosis today with a white count of 12.6 and a left shift. She did have a left shift on presentation. Her chemistry panel was unremarkable. Lactic acid was 0.7 on presentation. Liver enzymes are normal. Her UA is somewhat suggestive of infection however there are no white cells but she does have bacteria and leuk esterase as well as occult blood. Urine culture is pending. Small bowel follow-through was performed and she has contrast remaining in her stomach at 3-hour letitia. General surgery has discussed the case with anesthesia here and with her low ejection fraction of 15% they have deemed her too high risk for sedation here and requested transfer. Objective Data Objective Data Vital Signs: Vital Signs Temp Pulse Resp BP Pulse Ox O2 Del Method O2 Flow Rate 97.8 F 90 17 127/75 H 94 Room Air 2 05/17/23 05:06 05/17/23 05:06 05/17/23 05:06 05/17/23 05:06 05/17/23 05:06 05/17/23 05:06 05/16/23 15:32 Oxygen Flow Rate (L/min) 2 Oxygen Delivery Method Room Air Weight: 72.3 kg Body Mass Index (BMI) 29.1 Intake & Output: Intake and Output for Last 24 Hours 05/15/23 05/16/23 05/17/23 23:59 23:59 23:59 Intake Total 40 / 70 90 / 90 Output Total 100 / 100 Balance 40 / 70 -10 / -10 Lab / Micro Data 05/17/23 06:00 05/17/23 06:00 Labs: Laboratory Results - last 24 hr 05/16/23 13:20: WBC 8.3, RBC 4.49, Hgb 14.3, Hct 42.2, MCV 94.0, MCH 31.8, MCHC 33.9, RDW Std Deviation 45.6 H, RDW Coeff of Tanya 13.1, Plt Count 324, MPV 9.6, Immature Gran % (Auto) 0.400, Neut % (Auto) 83.7 H, Lymph % (Auto) 12.7 L, Worth % (Auto) 2.8, Eos % (Auto) 0.2, Baso % (Auto) 0.2, Absolute Neuts (auto) 6.9, Absolute Lymphs (auto) 1.05, Nucleated RBC % 0, Sodium 139, Potassium 4.3, Chloride 106, Carbon Dioxide 26.0, Anion Gap 7, BUN 26 H, Creatinine 0.91, Est GFR (MDRD) Af Amer 77, Est GFR (MDRD) Non-Af 64, BUN/Creatinine Ratio 28.6 H, Glucose 135 H, Calcium 9.7, Total Bilirubin 0.30, AST 10 L, ALT 16, Alkaline Phosphatase 66, Total Protein 7.9, Albumin 3.8, Globulin 4.1, Albumin/Globulin Ratio 0.9, Lipase 29 05/16/23 14:15: Urine Color Yellow, Urine Clarity Clear, Urine pH 5.0, Ur Specific [place] 1.030, Urine Protein 30 H, Urine Glucose (UA) Normal, Urine Ketones 5 H, Urine Occult Blood 25 H, Urine Nitrite Negative, Urine Bilirubin 3 H, Urine Urobilinogen 1 H, Ur Leukocyte Esterase 25 H, Urine RBC 0 SEEN, Urine WBC 0-5 SEEN, Ur Squamous Epith Cells 0-5 SEEN, Urine Bacteria 1+, Urine Mucus 0 SEEN 05/16/23 14:45: Lactic Acid 0.7 05/17/23 06:00: WBC 12.6 H, RBC 4.53, Hgb 14.2, Hct 43.3, MCV 95.6, MCH 31.3, MCHC 32.8, RDW Std Deviation 46.3 H, RDW Coeff of Tanya 13.1, Plt Count 382, MPV 9.9, Immature Gran % (Auto) 0.600, Neut % (Auto) 80.6 H, Lymph % (Auto) 12.2 L, Worth % (Auto) 6.3, Eos % (Auto) 0.1, Baso % (Auto) 0.2, Absolute Neuts (auto) 10.2 H, Absolute Lymphs (auto) 1.54, Nucleated RBC % 0, Sodium 141, Potassium 4.0, Chloride 110 H, Carbon Dioxide 23.0, Anion Gap 8, BUN 26 H, Creatinine 0.95, Estim Creat Clear Calc 38.60, Est GFR (MDRD) Af Amer 73, Est GFR (MDRD) Non-Af 61, BUN/Creatinine Ratio 27.4 H, Glucose 131 H, Calcium 9.1 Radiography Diagnostic Testing: Radiology Impression Abdomen/Pelvis CT 05/16/23 13:18 IMPRESSION: Fluid-filled distended small bowel loops in the distal small bowel with evidence of inflammatory changes in the resident fat in the right lower quadrant. There appears to be prior right hemicolectomy. Sigmoid diverticulosis. Small amount of free fluid in the cul-de-sac. Small amount of perihepatic fluid. Status post cholecystectomy. Small hepatic cysts. Right renal cyst. Electronically Signed: Roge Murray MD at 14:12 EDT , Abdomen/Pelvis CT 05/16/23 15:38 IMPRESSION: Mildly dilated gas and fluid-filled loops of small bowel proximally with normal caliber bowel loops distally which may represent developing obstruction. There is no free air identified. There is free fluid in the upper abdomen and pelvis which may represent ascites. There is also fluid-filled colon which may represent incipient diarrhea. Electronically Signed: Yeison Connolly MD at 16:49 EDT , KUB X-Ray 05/16/23 23:25 IMPRESSION: Nasogastric tube with the distal tip in proximal to mid stomach. Electronically Signed: Yeison Connolly MD at 23:48 EDT , Physical Exam Const alert, oriented x3, no apparent distress and well nourished Constitutional Narrative: Overweight, elderly, Jehov[employer] Witness, white female, sitting up on the edge of the bed, at bedside, NG tube in place, patient appears well at this time and indicates she feels better since NG tube was placed, nontoxic HEENT head/scalp atraumatic and moist oral mucous membranes HEENT Narrative: NG tube in nares, hearing is good, dentition is poor, Mallampati is 2-3 Head and Scalp: normocephalic Resp normal respiratory effort, no retractions, no use of accessory muscles and clear to auscultation bilaterally Auscultation: Negative for rales, rhonchi or wheezes Cardio regular rate, regular rhythm, S1 normal heart sound, S2 normal heart sound, no rub, no gallops and no clicks Cardio Narrative: 2 out of 6 systolic murmur loudest at left lower sternal border GI GI Narrative: Bowel sounds are hypoactive, no significant distention noticed at this time, abdomen is nontender and currently soft Extremity no clubbing, cyanosis or edema Extremity Narrative: Pedal pulse is are 2+ Neuro oriented x3, moves all extremities and no focal motor deficits Speech: speech normal Psych affect normal Psych Narrative: Eye contact is good, patient is pleasant and interacts appropriately Assessment & Plan Assessment/Plan (1) SBO (small bowel obstruction): (2) Abdominal pain: (3) Leukocytosis: PLAN: Plan Small bowel obstruction -Continue IV fluids decreased to 50 cc given cardiomyopathy and monitor closely for volume overload -N.p.o. -NG tube for decompression -Antiemetics as needed -We are hoping that this will resolve nonsurgically as she is high risk with her history of cardiomyopathy and an EF of 15% -Surgery is required would recommend cardiac clearance prior to surgery -Small bowel follow-through shows contrast remaining in her stomach at the 3- hour letitia -Anesthesia here will not sedate her for any procedures -Transfer pending to [facility] when bed is available -General surgery following-appreciate input Leukocytosis -Mild -Suspect reactive -UA is somewhat suggestive of infection so we will go ahead and obtain a culture however I will hold off on empiric antibiotics because am not convinced that she has a UTI Nonischemic cardiomyopathy -Most recent echocardiogram done on 02/03/2023 demonstrated a moderately dilated LV with an EF of 15%, moderately enlarged LA, severe mitral annular calcification with 1+ mitral valve insufficiency and a small pericardial effusion -Hold home Lasix--> monitor for volume overload with fluids -Hold home labetalol--> we will schedule IV with hold parameters -Hold lisinopril--> on scheduled enalaprilat for blood pressure -Hold Aldactone Chronic left bundle branch block -No acute issues Hypertension -Hold home labetalol -Scheduled enalaprilat -Could add as needed labetalol if blood pressures are elevated Nonrheumatic mitral regurgitation -1+ on her last echocardiogram -Monitor clinically -Would need cardiac clearance for any surgical intervention DVT prophylaxis -Continue subcu heparin CODE STATUS -full code Disposition: -Transfer to [facility] once bed is available unless small bowel obstruction resolves independently Charges/Coding Visit Charges Inpatient E&M: 61170 Subs Hosp L2
[2023-05-17] MEDS: 0.9% Normal Saline (1000mL) 1,000 ML 50 ML IV (09:57)
--- NOTE | 2023-05-17 10:00 | RAD_ITS ---
STUDY: GASTROGRAFIN SMALL BOWEL FOLLOW-THROUGH EXAMINATION. REASON FOR EXAM: Female, 78 years old. sbo -- gastrografin TECHNIQUE: Gastrografin was introduced through the indwelling nasogastric tube. COMPARISON: None. FINDINGS: The tip of a nasogastric tube is in the body of the stomach. On the three-hour image, contrast is seen within the stomach. RAD/Small Bowel Series Only IMPRESSION: Contrast is seen within the stomach. No contrast is seen in the small bowel. Electronically Signed: Roge Murray MD at 9:50 EDT ,
--- NOTE | 2023-05-17 11:35 | CASEMGMT ---
IDRIS GONSALEZ Assessment: Face to Face with pt for initial transition planning/care coordination assessment. IDRIS GONSALEZ introduced self and role at [facility], pt voices understanding and consents to assessment. Pt is A/O x4 and answers all questions appropriately at this time. Pt sitting on edge of bed with NG in and is painful. Pt awaiting nurse for pain meds. She arrived during assessment. Pt present in room. Care providers, pharmacy, and demographics verified/updated. Admitting Dx: TRACYO PCP:Ciarra Specialists:Ar[facility] Preferred Pharmacy: [facility] Retail Insurance: [employer] Prescription Benefit: no LNOK: Bon Bhatia, Living Arrangements: Pt lives with and dtr in a single story home with 4 steps to enter. Pt has another dtr who lives next to her and shares the same driveway. Pt was I in ADL's prior to hospitalization. Pt denies concerns at home. Transportation: Pt hires drivers for transportation. Pt is interested in [facility] Van for dc home if available. DME/HHC/SNF: Pt has a cane and FWW at home but does not use. Pt denies hx of HHC or SNF stays. Pt states no concerns with going home at time of dc. Pt states no further concerns/needs. CM to follow. Advised pt to ask CM if any further question/concerns/needs arise, voices understanding. Pt Goal: Home Plan: Home, hospital van for transportation home if available
[2023-05-17] MEDS: Morphine 2 MG/ML Syringe IV ×3 (11:47→17:46)
[2023-05-17] MEDS: Heparin Injection (Vial) 5,000 UNIT/ML VIAL 5000 UNIT SC (11:47)
[2023-05-17] MEDS: Famotidine 200 MG/20 ML MDV 20 MG in 0.9% Normal Saline (Pres. free 8 ML 300 MG IV (11:57)
--- NOTE | 2023-05-17 15:11 | DS.PCM_ITS ---
Providers Date of Admission: 05/16/23 Primary Care Physician: Dr. Toni Lafleur, Consultations 05/16/23 19:42 Consult: General Surgery Routine Consulting Provider: Caridad Galloway Reason for Consult: Small bowel obstruction EMERGENT Consult: No MD Notified: Yes Date Notified: 05/16/23 Time Notified: 18:05 Method of Notification: Verbal Reason For Visit: SMALL BOWEL OBSTRUCTION Diagnosis Discharge Diagnosis (1) SBO (small bowel obstruction): Status: Acute Code(s): K56.609 - Unspecified intestinal obstruction, unspecified as to partial versus complete obstruction (2) Abdominal pain: Status: Acute Code(s): R10.9 - Unspecified abdominal pain (3) Leukocytosis: Status: Acute Code(s): D72.829 - Elevated white blood cell count, unspecified Plan Small bowel obstruction -Continue IV fluids decreased to 50 cc given cardiomyopathy and monitor closely for volume overload -N.p.o. -NG tube for decompression -Antiemetics as needed -We are hoping that this will resolve nonsurgically as she is high risk with her history of cardiomyopathy and an EF of 15% -Surgery is required would recommend cardiac clearance prior to surgery -Small bowel follow-through shows contrast remaining in her stomach at the 3- hour letitia -Anesthesia here will not sedate her for any procedures -Transfer pending to [facility] when bed is available -General surgery following-appreciate input Leukocytosis -Mild -Suspect reactive -UA is somewhat suggestive of infection so we will go ahead and obtain a culture however I will hold off on empiric antibiotics because am not convinced that she has a UTI Nonischemic cardiomyopathy -Most recent echocardiogram done on 02/03/2023 demonstrated a moderately dilated LV with an EF of 15%, moderately enlarged LA, severe mitral annular calcification with 1+ mitral valve insufficiency and a small pericardial effusion -Hold home Lasix--> monitor for volume overload with fluids -Hold home labetalol--> we will schedule IV with hold parameters -Hold lisinopril--> on scheduled enalaprilat for blood pressure -Hold Aldactone Chronic left bundle branch block -No acute issues Hypertension -Hold home labetalol -Scheduled enalaprilat -Could add as needed labetalol if blood pressures are elevated Nonrheumatic mitral regurgitation -1+ on her last echocardiogram -Monitor clinically -Would need cardiac clearance for any surgical intervention DVT prophylaxis -Continue subcu heparin CODE STATUS -full code Disposition: -Transfer to [facility] once bed is available unless small bowel obstruction resolves independently Medications at Discharge Home Medications labetalol 200 mg tablet 100 mg PO BID BLOOD PRESSURE 02/03/23 lisinopril 10 mg tablet 10 mg PO .hs BLOOD PRESSURE 02/03/23 spironolactone 25 mg tablet 25 mg PO DAILY BLOOD PRESSURE 02/03/23 furosemide 40 mg tablet 20 mg PO DAILY FLLUID 05/16/23 Hospital Course Procedures - (The abdomen pelvis x2/KUB/small bowel follow-through) Summary of Care Provided Minutes Spent on Discharge: 45 Hospital Course: Mrs. Bhatia is a 78-year-old female who presented to the emergency department at [facility] on 05/16/2023 complaining of abdominal pain with nausea without vomiting. It started on the morning of admission and the patient denied any associated diarrhea. She denied any history of abdominal pain or previous issues similar to this. She reported that she did have a normal bowel movement on the morning of admission but denied flatus since the pain started. She has a history of an open cholecystectomy and appendectomy. CT of the abdomen pelvis was performed and showed dilated small bowel in the right mid lower abdomen and some free fluid. She had an NG placed in the emergency department and had about 4-500 out initially. Vital signs were unremarkable. Her initial CBC was unremarkable however she does have a little bit of a leukocytosis today with a white count of 12.6 and a left shift. She did have a left shift on presentation. Her chemistry panel was unremarkable. Lactic acid was 0.7 on presentation. Liver enzymes were normal. Her UA is somewhat sug gestive of infection however there are no white cells but she does have bacteria and leuk esterase as well as occult blood. Urine culture is pending. Small bowel follow-through was performed and she has contrast remaining in her stomach at 3-hour letitia. General surgery has discussed the case with anesthesia here and with her low ejection fraction of 15% they have deemed her too high risk for sed ation here and requested transfer. I discussed the case with the transfer center at [facility] and the surgeon Dr. Badillo. They have accepted her for transfer and felt that there would be a bed available later today. I have had the images from this hospitalization pushed and asked that the e chocardiogram done in February be pushed to them as well so it could be visualized at . Discharge diagnoses: Small bowel obstruction Leukocytosis Nonischemic cardiomyopathy Chronic left bundle branch block Hypertension Nonrheumatic mitral valve regurgitation Physical Exam Const alert, oriented x3, no apparent distress, average body habitus and well nourished Constitutional Narrative: Overweight, elderly, Darian, white female, sitting up on the edge of the bed, at bedside, NG tube in place, patient appears well at this time and indicates she feels better since NG tube was placed, nontoxic General Appearance: cooperative, well kempt and well developed Orientation / Consciousness: awake, oriented to person, oriented to place and oriented to time HEENT normocephalic, head/scalp atraumatic, hearing grossly normal bilaterally and moist oral mucous membranes Eyes PERRL, EOMs intact bilaterally and conjunctivae normal Neck supple, no JVD, thyroid normal and no carotid bruits General: trachea midline Resp normal respiratory effort, no retractions, no use of accessory muscles and clear to auscultation bilaterally Auscultation: Negative for rales, rhonchi or wheezes Cardio regular rate, regular rhythm, S1 normal heart sound, S2 normal heart sound, no murmurs, no rub, no gallops and no clicks Cardio Narrative: 2 out of 6 systolic murmur loudest at left lower sternal border GI GI Narrative: Bowel sounds are hypoactive, no significant distention noticed at this time, abdomen is nontender and currently soft Extremity no clubbing, cyanosis or edema Extremity Narrative: Pedal pulse is are 2+ Skin no rashes or lesions noted General Skin Exam: no breakdown Neuro oriented x3, CN's II-XII intact bilaterally, moves all extremities, no focal motor deficits and no sensory deficits noted Sensorium / Orientation: awake, alert, oriented to person, oriented to place and oriented to time Speech: speech normal Psych affect normal Psych Narrative: Eye contact is good, patient is pleasant and interacts appropriately Weight / BMI Weight Weight: 72.3 kg Body Mass Index (BMI) 29.1 ABG / Lab / Microbiology Data 05/17/23 06:00 05/17/23 06:00 Laboratory: Laboratory Results - last 24 hr 05/16/23 14:15: Urine Color Yellow, Urine Clarity Clear, Urine pH 5.0, Ur Specific [place] 1.030, Urine Protein 30 H, Urine Glucose (UA) Normal, Urine Ketones 5 H, Urine Occult Blood 25 H, Urine Nitrite Negative, Urine Bilirubin 3 H, Urine Urobilinogen 1 H, Ur Leukocyte Esterase 25 H, Urine RBC 0 SEEN, Urine WBC 0-5 SEEN, Ur Squamous Epith Cells 0-5 SEEN, Urine Bacteria 1+, Urine Mucus 0 SEEN 05/16/23 14:45: Lactic Acid 0.7 05/17/23 06:00: WBC 12.6 H, RBC 4.53, Hgb 14.2, Hct 43.3, MCV 95.6, MCH 31.3, MCHC 32.8, RDW Std Deviation 46.3 H, RDW Coeff of Tanya 13.1, Plt Count 382, MPV 9.9, Immature Gran % (Auto) 0.600, Neut % (Auto) 80.6 H, Lymph % (Auto) 12.2 L, [place] % (Auto) 6.3, Eos % (Auto) 0.1, Baso % (Auto) 0.2, Absolute Neuts (auto) 10.2 H, Absolute Lymphs (auto) 1.54, Nucleated RBC % 0, Sodium 141, Potassium 4.0, Chloride 110 H, Carbon Dioxide 23.0, Anion Gap 8, BUN 26 H, Creatinine 0.95, Estim Creat Clear Calc 38.60, Est GFR (MDRD) Af Amer 73, Est GFR (MDRD) Non-Af 61, BUN/Creatinine Ratio 27.4 H, Glucose 131 H, Calcium 9.1 Radiography Diagnostic Testing: Radiology Impression Abdomen/Pelvis CT 05/16/23 15:38 IMPRESSION: Mildly dilated gas and fluid-filled loops of small bowel proximally with normal caliber bowel loops distally which may represent developing obstruction. There is no free air identified. There is free fluid in the upper abdomen and pelvis which may represent ascites. There is also fluid-filled colon which may represent incipient diarrhea. Electronically Signed: Yeison Connolly MD at 16:49 EDT , KUB X-Ray 05/16/23 23:25 IMPRESSION: Nasogastric tube with the distal tip in proximal to mid stomach. Electronically Signed: Yeison Connolly MD at 23:48 EDT , KUB X-Ray 05/17/23 08:23 IMPRESSION: The tip of the nasogastric tube is in the body of the stomach. Mildly dilated small bowel loops in the upper mid abdomen. Electronically Signed: Roge Murray MD at 9:59 EDT , Meaningful Use Info Meaningful Use Diagnoses (Choose all that apply): None applicable Discharge Plan Admission Admit Date/Time: 05/16/23 18:01 Primary Reason for Your Visit: SBO Attending Provider: Alka Vigil Primary Care Provider: Toni Lafleur Consulting Providers: Caridad Galloway; Letitia Solis Discharge Orders/Prescriptions Prescriptions: No Action labetalol 200 MG tablet 100 mg PO BID spironolactone 25 mg tablet 25 mg PO DAILY lisinopril 10 mg tablet 10 mg PO .hs furosemide 40 mg tablet 20 mg PO DAILY Referrals / Follow Up: Toni Lafleur DO [Primary Care Provider] - Disposition Disposition (needs filled in before D/C Order can be placed): Acute Care Hospital Charges/Coding Visit Charges Inpatient E&M: 72908 Disch Hosp >30min
[2023-05-17] MEDS: Labetalol (Prefilled) 20 MG/4 ML 10 MG IV ×2 (15:50→19:13)
[2023-05-17] MEDS: 0.9% Saline Lock 10 ML Syringe IV (19:14)
== END 2023-05-17 21:00 | disposition short-term general hospital (02) | DRG 389 ==
LOC: ED 17:05 → MS3 18:14
PROVIDERS: Physician Assistant; Admitting Provider Internal Medicine; Emergency Provider Emergency Medicine; PCP Family Medicine; Visit Provider Internal Medicine
DX: K56.609 Unspecified intestinal obstruction, unspecified as to partial versus complete obstruction (principal); I50.22 Chronic systolic (congestive) heart failure; I42.8 Other cardiomyopathies; I11.0 Hypertensive heart disease with heart failure; I34.0 Nonrheumatic mitral (valve) insufficiency; D72.829 Elevated white blood cell count, unspecified; I44.7 Left bundle-branch block, unspecified; E66.3 Overweight; Z68.29 Body mass index [BMI] 29.0-29.9, adult; Z90.49 Acquired absence of other specified parts of digestive tract; Z79.01 Long term (current) use of anticoagulants; Z79.899 Other long term (current) drug therapy
CPT/HCPCS: 36415; 74018; 74176; 74177; 74250; 80048; 80053; 81001; 83605; 83690; 85025; 87086; 87088; 97802; 99285; J7030; Q9967; A4216; J2405; J3490

== ENCOUNTER 2024-07-20 16:58 | Emergency (ER) | payer OTHER, SELFPAY ==
[2024-07-20 16:59] VITALS: BP 175/82; PULSE 89; RESP 16; TEMP 36.8; O2SAT 96
--- NOTE | 2024-07-20 17:07 | CT_ITS ---
We are attempting to reach an attending provider to discuss findings. An addendum with communication details will be sent when the communication is complete. INDICATION: RLQ abdominal pain EXAMINATION: CT ABDOMEN AND PELVIS WITH CONTRAST - CT Abdomen And Pelvis W/ Contrast Injection TECHNIQUE: Helically acquired images were obtained of the abdomen and pelvis following IV contrast. A radiation dose optimization technique was used for this scan. IV Contrast dosage and agent: 75 cc [id number] Oral contrast: None. COMPARISON: 05/16/2023 FINDINGS: LOWER CHEST: Lung bases are clear. LIVER: Small hepatic cysts. No concerning focal mass. GALLBLADDER AND BILIARY TREE: Cholecystectomy. Stable mild biliary ductal dilatation without choledocholithiasis. PANCREAS: No focal cystic or solid mass. SPLEEN: Normal size without focal cystic or solid mass. ADRENAL GLANDS: No nodules. KIDNEYS AND URETERS: Stable right cortical cysts. No hydronephrosis. PERITONEUM: No ascites or free air. BOWEL: Surgical changes of partial right hemicolectomy. Multiple loops of proximal small bowel distended up to 3.7 cm without abnormal gastric or distal small bowel distention. No mesenteric edema. Colonic diverticulosis without focal inflammatory bowel wall changes. LYMPH NODES: No enlarged mesenteric or retroperitoneal lymph nodes. VESSELS: Aorta is non-dilated. URINARY BLADDER: Unremarkable. REPRODUCTIVE ORGANS: No pelvic masses. ABDOMINAL WALL: Enlarging umbilical hernia containing small bowel loops without strangulation or proximal obstruction. BONES: No acute or aggressive abnormality. CT/Abdomen/Pelvis W IV Cont ONLY IMPRESSION: Abnormal small bowel loops with appearance of this loop small bowel obstruction. Recommend surgical consultation. Colonic diverticulosis without inflammatory bowel wall changes. Mild postcholecystectomy biliary dilatation. Umbilical hernia containing small bowel loops without strangulation or obstruction. Electronically Signed: Deshawn Perez MD at 19:28 EST Reading Location ID and State: [facility] / [place] Tel , Service support ,
--- NOTE | 2024-07-20 17:11 | ED.VIS.GI ---
HPI <Dr. Ming Beckman MD - Last Filed: 07/20/24 20:49> HPI - GI History of Present Illness Chief Complaint: Abd Pain <GERBER Brown - Last Filed: 07/20/24 20:55> HPI - GI Narrative Narrative: Patient presenting today with right sided abdominal pain that she has had since this afternoon. She has had 4 episodes of vomiting as well. She had a normal bowel movement this morning. Previous abdominal surgeries include appendectomy, cholecystectomy, and volvulus that required surgical intervention at [facility]. She denies fevers, chills, hematemesis, melena, and hematochezia. She has a PMH of CHF and has a defibrillator. PFSH <Dr. Ming Beckman MD - Last Filed: 07/20/24 20:49> [facility] Medical History Acute respiratory distress Sepsis Acute hypoxemic respiratory failure Bilateral pneumonia Chronic systolic (congestive) heart failure Non-rheumatic mitral regurgitation Essential hypertension Nonischemic cardiomyopathy LBBB (left bundle branch block) Abnormal electrocardiogram Acute exacerbation of CHF (congestive heart failure) Acute respiratory failure with hypoxia Home Medications ?Medication ?Instructions ?Recorded ?Last Taken ?Type spironolactone 25 mg tablet 25 mg PO DAILY BLOOD PRESSURE 02/03/23 02/02/23 History amiodarone 100 mg tablet 50 mg PO DAILY 07/20/24 Unknown History metoprolol succinate 50 mg 50 mg PO DAILY 07/20/24 Unknown History tablet,extended release 24 hr Allergy/AdvReac Type Severity Reaction Status Date / Time torsemide AdvReac Unknown Unknown Verified 07/20/24 17:00 Family History Mother Myocardial infarction, Onset Age: 56 Father Myocardial infarction, Onset Age: 81 Other Heart disease Surgical History History of knee replacement procedure of left knee History of cholecystectomy History of appendectomy History of left heart catheterization (LHC) (~10/23/19) Social History Smoking Status: Never smoker alcohol intake: never substance use type: does not use ROS <GERBER Brown - Last Filed: 07/20/24 20:55> ROS ED Constitutional Constitutional ED: Denies chills or fever(s) Cardiovascular Cardiovascular: Denies chest pain Respiratory/Chest Respiratory/Chest: Denies cough or dyspnea Gastrointestinal Gastrointestinal: Reports abdominal pain, nausea and vomiting; Denies constipation, diarrhea or melena Genitourinary Genitourinary ED: Denies dysuria or urinary urgency Musculoskeletal Musculoskeletal: Denies arthralgias or myalgias Integumentary Denies rash Neurologic Neurologic: Denies weakness EXAM <Dr. Ming Beckman MD - Last Filed: 07/20/24 20:49> Physical Exam Const Vital Signs: 07/20/24 16:59 07/20/24 18:58 07/20/24 20:00 Temperature 98.2 F Temperature Source Oral Pulse Rate 89 124 H 89 Respiratory Rate 16 18 18 Blood Pressure 175/82 H 160/87 H 159/74 H Blood Pressure Mean 113 111 102 Pulse Ox 96 94 95 Oxygen Delivery Method Room Air Room Air Room Air <GERBER Brown - Last Filed: 07/20/24 20:55> Physical Exam Const Vital Signs: 07/20/24 16:59 07/20/24 18:58 07/20/24 20:00 Temperature 98.2 F Temperature Source Oral Pulse Rate 89 124 H 89 Respiratory Rate 16 18 18 Blood Pressure 175/82 H 160/87 H 159/74 H Blood Pressure Mean 113 111 102 Pulse Ox 96 94 95 Oxygen Delivery Method Room Air Room Air Room Air Positive well nourished, well developed and no apparent distress General Appearance ED: well developed HEENT Reports normocephalic and head/scalp atraumatic Mouth ED: Yes moist mucous membranes normal Eyes PERRL and EOMs intact bilaterally Neck full ROM and supple Chest Wall inspection of chest normal Resp normal respiratory effort and clear to auscultation bilaterally Cardio regular rate and regular rhythm GI soft to palpation, non-distended and no masses GI Narrative: Right-sided abdominal pain to palpation, umbilical hernia that does not appear to cause patient any pain with palpation. Palpation: Negative for guarding or rigid Back/Spine normal ROM and normal to inspection Extremity normal to inspection and full ROM Neuro oriented x3, CN's II-XII intact bilaterally, moves all extremities, no focal motor deficits and no sensory deficits noted Sensorium / Orientation: awake and alert Psych mental status grossly normal and thought process normal Skin no rashes or lesions noted and no wounds MDM <Dr. Ming Beckman MD - Last Filed: 07/20/24 20:49> [facility] Narrative Medical decision making narrative: I have personally performed a face to face assessment of the patient and have reviewed the TOMAS Note. I performed a substantive portion of the visit including all aspects of the following. My paul findings include: History is 79-year-old female history of prior appendectomy and cholecystectomy. History of prior volvulus. History of cardiac disease with CHF and EF of between 10 and 20% with a defibrillator pacemaker. States today around noon start developing periumbilical abdominal pain. Constant pain. No improvement. Nausea and vomiting. No diarrhea. No dysuria. No documented fever. Exam is [79-year-old female. Vital signs are stable afebrile. and I believe son are at bedside. H EENT exam unremarkable. Neck nontender. Lungs clear. Heart regular rhythm rate about 90 no murmur. Chest wall and ribs nontender. Abdomen mildly distended. Periumbilical hernias x 2. Not significantly tender. She has diffuse abdominal tenderness more so periumbilical. She does have rebound. Abdomen is not rigid. Soft. Moving all 4 extremities. Nontender. Normal strength. She is awake and alert. Answering questions following commands.] Medical Decision Making [the 79-year-old female with known cardiac disease, EF of 10 to 20%, defibrillator/pacemaker and prior appendectomy, cholecystectomy and volvulus. With abdominal pain for about 5 hours. Fentanyl for pain. Zofran for nausea. CAT scan labs.] Other additions or changes: [None] History & Record Review Discussion w/independent historian: Patient and Family Additional record(s) reviewed:: Prior inpatient record, Prior outpatient record, Prior ED visit, Prior labs and No prior records Lab Data Labs: Laboratory Results - last 24 hr 07/20/24 07/20/24 17:15 18:32 WBC 8.0 RBC 4.23 Hgb 13.6 Hct 40.6 MCV 96.0 MCH 32.2 H MCHC 33.5 RDW Std Deviation 44.9 H RDW Coeff of Tanya 12.6 Plt Count 319 MPV 10.0 Immature Gran % (Auto) 0.400 Neut % (Auto) 80.2 H Lymph % (Auto) 14.2 L [place] % (Auto) 4.6 Eos % (Auto) 0.2 Baso % (Auto) 0.4 Absolute Neuts (auto) 6.4 Absolute Lymphs (auto) 1.14 Nucleated RBC % 0 Sodium 141 Potassium 3.6 Chloride 109 H Carbon Dioxide 26.0 Anion Gap 6 BUN 20 H Creatinine 0.88 Est GFR (MDRD) Af Amer 79 Est GFR (MDRD) Non-Af 66 BUN/Creatinine Ratio 22.7 H Glucose 121 H Calcium 9.6 Total Bilirubin 0.40 AST 12 L ALT 15 Alkaline Phosphatase 63 Total Protein 7.4 Albumin 4.0 Globulin 3.4 Albumin/Globulin Ratio 1.2 Lipase 23 Urine Color Straw Urine Clarity Clear Urine pH 5.0 Ur Specific Pioneer 1.020 Urine Protein 30 H Urine Glucose (UA) Normal Urine Ketones 50 H Urine Occult Blood 150 H Urine Nitrite Negative Urine Bilirubin Negative Urine Urobilinogen Normal Ur Leukocyte Esterase Negative Urine RBC 25-50 SEEN Urine WBC 0 SEEN Ur Squamous Epith Cells 0-5 SEEN Urine Bacteria 1+ Hyaline Casts 0-5 SEEN Urine Mucus 2+ Radiography Diagnostic Testing: Clinical Impression(s) from Imaging Studies Abdomen/Pelvis CT 07/20/24 17:07 IMPRESSION: Abnormal small bowel loops with appearance of this loop small bowel obstruction. Recommend surgical consultation. Colonic diverticulosis without inflammatory bowel wall changes. Mild postcholecystectomy biliary dilatation. Umbilical hernia containing small bowel loops without strangulation or obstruction. Electronically Signed: Deshawn Perez MD at 19:28 EST Reading Location ID and State: [address] [place] [address] Tel , Service support , ADDENDUM: 07/20/241941 IMPRESSION: Abnormal small bowel loops with appearance of this loop small bowel obstruction. Recommend surgical consultation. Colonic diverticulosis without inflammatory bowel wall changes. Mild postcholecystectomy biliary dilatation. Umbilical hernia containing small bowel loops without strangulation or obstruction. N.B. : The above Results were Read Back by Deshawn Perez MD to GERBER Brown, and understanding confirmed on 07/20/2024 19:35:51 (ET). Electronically Signed: Deshawn Perez MD at 19:28 EST , <GERBER Brown - Last Filed: 07/20/24 20:55> [facility] MDM Narrative Medical decision making narrative: Patient presenting today due to abdominal pain that started this afternoon. She has had associated nausea and vomiting. She has right-sided abdominal tenderness on exam, labs and CT of the abdomen and pelvis will be obtained. She was given IV fentanyl and Zofran for pain and nausea. Her CBC, CMP, lipase, and UA overall are unremarkable. CT scan shows a small bowel obstruction, she also has an umbilical hernia. She did continue to feel nauseous and was given additional Zofran, on reexamination she was vomiting and NG tube was placed. Given her history of CHF, she will require transfer to [facility] where she received surgery in the past. We did speak with the transfer center, she is excepted by Dr. Whitney and will be transferred ED to ED in stable condition. She was given IV Zosyn. I have personally performed a face to face assessment of the patient and have reviewed the TOMAS Note. I performed a substantive portion of the visit including all aspects of the following. My paul findings include: History is 79-year-old female history of prior appendectomy and cholecystectomy. History of prior volvulus. History of cardiac disease with CHF and EF of between 10 and 20% with a defibrillator pacemaker. States today around noon start developing periumbilical abdominal pain. Constant pain. No improvement. Nausea and vomiting. No diarrhea. No dysuria. No documented fever. Exam is [79-year-old female. Vital signs are stable afebrile. and I believe son are at bedside. H EENT exam unremarkable. Neck nontender. Lungs clear. Heart regular rhythm rate about 90 no murmur. Chest wall and ribs nontender. Abdomen mildly distended. Periumbilical hernias x 2. Not significantly tender. She has diffuse abdominal tenderness more so periumbilical. She does have rebound. Abdomen is not rigid. Soft. Moving all 4 extremities. Nontender. Normal strength. She is awake and alert. Answering questions following commands.] Medical Decision Making [the 79-year-old female with known cardiac disease, EF of 10 to 20%, defibrillator/pacemaker and prior appendectomy, cholecystectomy and volvulus. With abdominal pain for about 5 hours. Fentanyl for pain. Zofran for nausea. CAT scan labs.] Other additions or changes: [None] Lab Data Attestation: I reviewed the patient's lab results. Lab results narrative: BUN 20, CBC 8, UA shows 1+ bacteria, 25-50 RBCs Labs: Laboratory Results - last 24 hr 07/20/24 07/20/24 17:15 18:32 WBC 8.0 RBC 4.23 Hgb 13.6 Hct 40.6 MCV 96.0 MCH 32.2 H MCHC 33.5 RDW Std Deviation 44.9 H RDW Coeff of Tanya 12.6 Plt Count 319 MPV 10.0 Immature Gran % (Auto) 0.400 Neut % (Auto) 80.2 H Lymph % (Auto) 14.2 L [place] % (Auto) 4.6 Eos % (Auto) 0.2 Baso % (Auto) 0.4 Absolute Neuts (auto) 6.4 Absolute Lymphs (auto) 1.14 Nucleated RBC % 0 Sodium 141 Potassium 3.6 Chloride 109 H Carbon Dioxide 26.0 Anion Gap 6 BUN 20 H Creatinine 0.88 Est GFR (MDRD) Af Amer 79 Est GFR (MDRD) Non-Af 66 BUN/Creatinine Ratio 22.7 H Glucose 121 H Calcium 9.6 Total Bilirubin 0.40 AST 12 L ALT 15 Alkaline Phosphatase 63 Total Protein 7.4 Albumin 4.0 Globulin 3.4 Albumin/Globulin Ratio 1.2 Lipase 23 Urine Color Straw Urine Clarity Clear Urine pH 5.0 Ur Specific [place] 1.020 Urine Protein 30 H Urine Glucose (UA) Normal Urine Ketones 50 H Urine Occult Blood 150 H Urine Nitrite Negative Urine Bilirubin Negative Urine Urobilinogen Normal Ur Leukocyte Esterase Negative Urine RBC 25-50 SEEN Urine WBC 0 SEEN Ur Squamous Epith Cells 0-5 SEEN Urine Bacteria 1+ Hyaline Casts 0-5 SEEN Urine Mucus 2+ Radiography Diagnostic Testing: Clinical Impression(s) from Imaging Studies Abdomen/Pelvis CT 07/20/24 17:07 IMPRESSION: Abnormal small bowel loops with appearance of this loop small bowel obstruction. Recommend surgical consultation. Colonic diverticulosis without inflammatory bowel wall changes. Mild postcholecystectomy biliary dilatation. Umbilical hernia containing small bowel loops without strangulation or obstruction. Electronically Signed: Deshawn Perez MD at 19:28 EST , ADDENDUM: 07/20/24 194 IMPRESSION: Abnormal small bowel loops with appearance of this loop small bowel obstruction. Recommend surgical consultation. Colonic diverticulosis without inflammatory bowel wall changes. Mild postcholecystectomy biliary dilatation. Umbilical hernia containing small bowel loops without strangulation or obstruction. N.B. : The above Results were Read Back by Deshawn Perez MD to GERBER Brown, and understanding confirmed on 07/20/2024 19:35:51 (ET). Electronically Signed: Deshawn Perez MD at 19:28 EST , <Dr. Ming Beckman MD - Last Filed: 07/20/24 20:49> Critical Care Time Critical Care Time: Yes Critical care time (excluding procedures): 30-74 minutes, Including time spent:, Discussing w/Patient &/or Family/Training Associate, Discussing w/Consultants, Arranging Admission or Transfer and - (36 minutes) Discharge Plan Triage Chief Complaint: Abd Pain ED Midlevel Provider: Jaqui Courtney ED Provider: Ming Beckman Dx/Rx/DC Orders Clinical Impression: Abdominal pain, Cardiomyopathy, SBO (small bowel obstruction), History of heart failure, Abdominal hernia Prescriptions: No Action spironolactone 25 mg tablet 25 mg PO DAILY metoprolol succinate 50 mg tablet extended release 24 hr 50 mg PO DAILY amiodarone 100 mg tablet 50 mg PO DAILY Primary Care Provider: Toni Lafleur Referrals: Toni Lafleur DO [Primary Care Provider] - Print Language: Sinhala Disposition Disposition: Acute Care Hospital Discharge Location: [facility]
[2024-07-20] MEDS: Ondansetron 4 MG/2 ML Vial IV ×3 (17:21→21:54)
[2024-07-20] MEDS: fentaNYL 100 MCG/2 ML Ampul 50 MCG IV ×3 (17:21→23:40)
[2024-07-20 17:54] LABS: ALB/GLOB Ratio 1.2 RATIO (0.9-2.4); AST(SGOT) 12 U/L (15-37); Absolute Lymphocyte Count 1.14 X10^3/uL (0.83-4.51); Absolute Neutrophil Count 6.4 X10^3/uL (2.0-7.7); Alanine Aminotransfer ALT/SGPT 15 U/L (13-56); Alkaline Phosphatase 63 U/L (45-117); Anion Gap 6 (5-15); BUN 20 mg/dL (7-18); BUN/Creat Ratio 22.7 RATIO (10-20); Basophil# 0.03 X10^3/uL; Basophil% 0.4 % (0-1); Calcium,Total 9.6 mg/dL (8.5-10.1); Chloride 109 mmol/L (98-107); Creatinine, Serum 0.88 mg/dL (0.55-1.02); EST Glomerular Filtration Rate 66 mL/min (>60); Eosinophil# 0.02 X10^3/uL; Eosinophils% 0.2 % (0-5); Est Glom Filt Rate - Afr Amer 79 mL/min (>60); Globulin 3.4 g/dL (2.2-4.2); Glucose 121 mg/dL (74-106); Hematocrit 40.6 % (37-47); Hemoglobin 13.6 g/dL (12.0-15.0); Lipase 23 U/L (13-75); Lymphocyte # 1.14 X10^3/ul (0.83-4.51); Lymphocyte % 14.2 % (19-41); Mean Corp Hgb Conc 33.5 g/dL (32-36); Mean Corpuscular Hgb 32.2 pg (27.0-32.0); Monocyte# 0.37 X10^3/uL; Monocyte% 4.6 % (0-10); NRBC Flagged by Analyzer 0 % (0-5); Neutrophil # 6.42 X10^3/uL (2.7-7.7); Neutrophil % 80.2 % (47-70); Platelet Count 319 K/mm3 (150-450); Potassium 3.6 mmol/L (3.5-5.1); Protein, Total 7.4 g/dL (6.4-8.2); RBC Distribution Width CV 12.6 % (11.6-14.6); RBC Distribution Width SD 44.9 fl (35.1-43.9); Red Blood Count 4.23 M/mm3 (4.2-5.4); Sodium Level 141 mmol/L (136-145)
[2024-07-20 18:37] LABS: White Blood Cells 0 SEEN /hpf (0-5)
[2024-07-20 18:41] LABS: Color, Urine Straw (Yellow); Glucose, Dipstick Normal (Normal); Ketone-Dipstick 50 mg/dl (Negative); Leukocyte Esterase-Dipstick Negative /ul (Negative); Nitrite-Dipstick Negative (Negative); Occult Blood-Urine 150 /ul (Negative); Protein-Dipstick 30 mg/dl (Negative); Urine Bilirubin Dipstick Negative (Negative); Urine Clarity Clear (Clear); Urine Urobilinogen Normal (Normal)
[2024-07-20 18:55] LABS: Bacteria 1+ /hpf (None Seen); Hyaline Cast 0-5 SEEN /lpf (0-5); Mucous, Urine 2+ /hpf (<or=2+); Red Blood Cells-Urine 25-50 SEEN /hpf (0-5); Squamous Epithelial Cells - UA 0-5 SEEN /hpf (5-10)
[2024-07-20 18:58] VITALS: BP 160/87; PULSE 124; RESP 18; O2SAT 94
[2024-07-20 19:53] VITALS: BMI 32.3
[2024-07-20 20:00] VITALS: BP 159/74; PULSE 89; RESP 18; O2SAT 95
[2024-07-20] MEDS: Oxymetazoline 0.05% 1 SPRAY SPRAY.BTL 2 SPRAY NASAL (21:54)
[2024-07-20] MEDS: Piperacil/Tazobactam 3.375 GM in 0.9% Normal Saline (50mL MB+) 50 ML IV (21:54)
[2024-07-20 22:00] VITALS: BP 171/98; PULSE 129; RESP 18; O2SAT 95
--- NOTE | 2024-07-20 22:10 | RAD_ITS ---
INDICATION: NG Insertion EXAMINATION/TECHNIQUE: X-RAY - portable upright AP abdomen centered high COMPARISON: None FINDINGS: Enteric tube passes well into the stomach. Transvenous pacemaker in place. No acute pulmonary findings. RAD/Abdomen Single View (Portable) IMPRESSION: Satisfactory NG tube placement. Electronically Signed: Deshawn Perez MD at 23:25 EST ,
[2024-07-20 23:07] VITALS: BP 172/98; PULSE 124; RESP 18; TEMP 36.9; O2SAT 93
[2024-07-21] VITALS: BP 138/81; PULSE 126; RESP 18; O2SAT 93
== END 2024-07-21 01:18 | disposition short-term general hospital (02) ==
PROVIDERS: Physician Assistant; Emergency Provider Emergency Medicine; PCP Family Medicine; Visit Provider Emergency Medicine
DX: K56.609 Unspecified intestinal obstruction, unspecified as to partial versus complete obstruction (principal); I11.0 Hypertensive heart disease with heart failure; I50.22 Chronic systolic (congestive) heart failure; I42.8 Other cardiomyopathies; R10.33 Periumbilical pain; K42.9 Umbilical hernia without obstruction or gangrene; I34.0 Nonrheumatic mitral (valve) insufficiency; Z87.19 Personal history of other diseases of the digestive system; Z90.49 Acquired absence of other specified parts of digestive tract; Z95.810 Presence of automatic (implantable) cardiac defibrillator; Z79.899 Other long term (current) drug therapy; Z96.652 Presence of left artificial knee joint
CPT/HCPCS: 74018; 74177; 80053; 81001; 83690; 85025; 96365; 96375; 96376; 99285; J7040; Q9967; A4216; J2405